=== PATIENT | female | born 1960 | race Caucasian/White ===

== ENCOUNTER 2017-07-26 17:02 | Inpatient (IN) | payer OTHER ==
[~2017-07-26] VITALS: Ht 157.5 cm; Wt 112.6 kg
--- NOTE | ~2017-07-26 | EKG ---
[address] [place] [address] ELECTROCARDIOGRAM REPORT Name: FENG SANABRIA Room #: 200-I ADM IN M.R.#: [id number] Admission: 07/26/17 Attend Phys: Joseph Leggett Discharge: Date of : 62 Report #: [id number] THIS REPORT FOR: //name// [facility] Test Date: 2017-07-28 Test Time: 07:45:59 Pat Name: FENG SANABRIA Department: Room: 200 I Gender: F Blast Furnace Tender: yeny : 1960 Requested By: Pamela Lozano Order Number: [id number] MD: Sky Bass Measurements Intervals [place] Rate: 110 P: [place]: QRS: 111 QRSD: 102 T: -56 QT: 400 QTc: 542 Interpretive Statements Atrial fibrillation Consider right ventricular hypertrophy Borderline T abnormalities, inferior leads Electronically Signed On 07-28-2017 8:31:35 DIRECTOR OF COUNSELING by Sky Bass [email or web address] <ELECTRONICALLY SIGNED> By: Sky Bass MD 07/28/17 0831 0745 0745 Sky Bass MD /SHERRI
--- NOTE | ~2017-07-26 | EKG ---
[address] [facility] [place] [address] ELECTROCARDIOGRAM REPORT Name: FENG SANABRIA Room #: 200-I ADM IN M.R.#: [id number] Admission: 07/26/17 Attend Phys: Joseph Leggett Discharge: Date of : 62 Report #: [id number] THIS REPORT FOR: //name// [facility] ED Test Date: 2017-07-26 Test Time: 22:31:36 Pat Name: FENG SANABRIA Department: Room: 200 I Gender: F Hand Rounder: JERRY : 1960 Requested By: Roderick Low Order Number: [id number] MD: Sky Bass Measurements Intervals [place] Rate: 126 P: CT: QRS: 106 QRSD: 93 T: -26 QT: 355 QTc: 515 Interpretive Statements Atrial fibrillation Right axis deviation Borderline T abnormalities, inferior leads Compared to ECG 07/26/2017 17:45:12 T-wave abnormality still present Electronically Signed On 07-27-2017 9:05:17 TIPPLE WORKER by Sky Bass [email or web address] <ELECTRONICALLY SIGNED> By: Sky Bass MD 07/27/17904 30 30 Sky Bass MD /SHERRI
--- NOTE | ~2017-07-26 | 2DMMODE ---
[facility] [address] [place] [address] 2 D/M-MODE ECHOCARDIOGRAM Name: FENG SANABRIA Room #: 200-I ADM IN M.R.#: [id number] Admission: 07/26/17 Attend Phys: Joseph Lennon Discharge: Date of : 62 Date of Service: 07/27/17 1252 Report #: [id number] THIS REPORT FOR: //name// APPROVED REPORT Study performed: 07/27/2017 11:43:48 EXAM: Comprehensive 2D, Doppler, and color-flow Echocardiogram Patient Location: Echo lab Room #: 200 Status: routine BSA: 2.10 HR: 75 bpm BP: 105/73 mmHg Rhythm: Atrial Fibrillation Other Information Study Quality: Adequate Technically limited study due to morbid obesity. Patient moved throughout exam. Did not tolerate well. Indications Afib, CHF, aortic stenosis, Short of breath. 2D Dimensions RVDd: 35.89 mm LVEF(%): 43.04 (>50%) IVSd: 12.16 (7-11mm) LVOT Diam: 19.82 (18-24mm) LVDd: 46.13 mm PWd: 11.10 (7-11mm) Ascending Ao: 35.03 (22-36mm) LVDs: 36.37 (25-40mm) Aortic Root: 25.91 mm Isidro's LVEF: 43.04 % Volumes Left Atrial Volume (Systole) Single Plane 4CH: 71.38 mL Single Plane 2CH: 66.67 mL Aortic Valve AoV Peak Anand.: 2.08 m/s AO Peak Gr.: 17.65 mmHg LVOT Max P.65 mmHg AO Mean Gr.: 11.15 mmHg AO V2 Mean: 1.60 m/s LVOT Max V: 0.95 m/s AO V2 VTI: 43.61 cm JOANIE Vmax: 1.41 cm2 [facility] [address] [place] [address] 2 D/M-MODE ECHOCARDIOGRAM Name: TITI SANABRIAASIM GUTIERREZE Room #: 200-I [facility] IN .R.#: [id number] Admission: 07/26/17 Attend Phys: oJseph Lennon Discharge: Date of : 62 Date of Service: 07/27/17 1252 Report #: [id number] Mitral Valve MV Decel. Time: 145.20 ms MV E Max Anand.: 1.32 m/s Pulmonary Valve PV Peak Anand.: 0.91 m/s PV Peak Gr.: 3.34 mmHg Tricuspid Valve TR Peak Anand.: 2.87 m/s RAP Estimate: 10.00 mmHg TR Peak Gr.: 33.67 mmHg PA Pressure: 44.00 mmHg Left Ventricle The left ventricle is normal size. Mild concentric left ventricular hypertrophy. Left ventricular systolic function is normal. LVEF is 55%. This study is not technically sufficient to allow evaluation of the LV diastolic function due to atrial fibrillation. Right Ventricle Right ventricle is dilated. Right ventricle appears mildly hypokinetic. Atria Left atrium is dilated. Right atrium is dilated. Aortic Valve Aortic valve is calcified. Trace aortic regurgitation. Mild aortic stenosis. Calculated aortic valve area is 1.4 cm2 with maximum pressure gradient of 18 mmHg and mean pressure gradient of 11 mmHg. Mitral Valve Mitral valve leaflets are mildly calcified. Mild mitral annular calcification. Moderate mitral regurgitation. Tricuspid Valve The tricuspid valve is normal in structure. Moderate to severe tricuspid regurgitation. Estimated PAP is 45mmHg. Pulmonic Valve The pulmonary valve is normal in structure. Trace pulmonic regurgitation. Great Vessels The aortic root is normal in size. IVC is dilated and collapses <50% with inspiration. [facility] [address] [place] [address] 2 D/M-MODE ECHOCARDIOGRAM Name: FENG SANABRIA Room #: 200-I [facility] IN [facility]#: [id number] Admission: 07/26/17 Attend Phys: Joseph Lennon Discharge: Date of : 62 Date of Service: 07/27/17 1252 Report #: [id number] Pericardium There is no pericardial effusion. <Conclusion> Left ventricular systolic function is normal. LVEF is 55%. Both atria are dilated. Aortic valve is calcified, mildly stenotic. Calculated aortic valve area is 1.4 cm2 with maximum pressure gradient of 18 mmHg and mean pressure gradient of 11 mmHg. Mitral valve leaflets are mildly calcified. Mild mitral annular calcification. Moderate mitral regurgitation. Moderate to severe tricuspid regurgitation. Estimated pulmonary artery pressure of 45mmHg. There is no pericardial effusion. <ELECTRONICALLY SIGNED> By: Mich Fonseca MD, [facility] 07/27/17 1252 1252 125 Mich Fonseca MD, FACC /INF
--- NOTE | ~2017-07-26 | EKG ---
[address] [address] ELECTROCARDIOGRAM REPORT Name: FENG SANABRIA Room #: 200-I ADM IN M.R.#: [id number] Admission: 07/26/17 Attend Phys: Joseph Leggett Discharge: Date of : 62 Report #: [id number] THIS REPORT FOR: //name// [facility] Test Date: 2017-07-30 Test Time: 12:32:57 Pat Name: FENG SANABRIA Department: Room: 200 I Gender: F Ice Cream Vendor: Albin QUIROZ : 1960 Requested By: Sky Bass Order Number: [id number] MD: Sky Bass Measurements Intervals [place] Rate: 96 P: ID: QRS: 87 QRSD: 92 T: -28 QT: 389 QTc: 492 Interpretive Statements Atrial fibrillation Borderline repolarization abnormality Compared to ECG 07/29/2017 10:16:17 Ventricular premature complex(es) no longer present Right-axis deviation no longer present Electronically Signed On 07-30-2017 13:19:33 CORPORATE COMMUNICATIONS SPECIALIST by Sky Bass [email or web address] <ELECTRONICALLY SIGNED> By: Sky Bass MD 07/30/17 1319 1232 1232 Sky Bass MD /EPI
--- NOTE | ~2017-07-26 | EKG ---
[address] [address] ELECTROCARDIOGRAM REPORT Name: FENG SANABRIA Room #: 170-1 ADM IN M.R.#: [id number] Admission: 07/26/17 Attend Phys: Joseph Leggett Discharge: Date of : 62 Report #: [id number] THIS REPORT FOR: //name// [facility] ED Test Date: 2017-07-26 Test Time: 17:45:12 Pat Name: FENG SANABRIA Department: Room: 170 Gender: F Assistance Coordinator: SHERWIN : 1960 Requested By: Roderick Low Order Number: [id number] MD: Sky Bass Measurements Intervals [place] Rate: 143 P: [place]: QRS: 92 QRSD: 87 T: QT: 322 QTc: 497 Interpretive Statements Atrial fibrillation Borderline right axis deviation Borderline T abnormalities, inferior leads Electronically Signed On 07-26-2017 23:13:32 BASTING PULLER by Sky Bass [email or web address] <ELECTRONICALLY SIGNED> By: Sky Bass MD 07/26/17 2313 1745 1745 MD NAYELI Martinez
--- NOTE | ~2017-07-26 | HC ---
[facility] [place] [address] CONSULTATION Name: FENG SANABRIA Room #: 200-I ADM IN M.R.#: [id number] Admission: 07/26/17 Attend Phys: Joseph Leggett Discharge: Date of : 62 Report #: [id number] THIS REPORT FOR: //name// CC: Joseph Moran The patient of Dr. Leggett. CCU room 200. HISTORY OF PRESENT ILLNESS: One of multiple admissions for this 57-year-old white female with a 1- to 2-year history of atrial fibrillation that has necessitated chemical and electrical conversion on multiple occasions. It is not clear whether the patient has ever been evaluated for thyroid disorders. She has a family history of mother who has hypothyroidism. The patient herself has been clinically euthyroid. She has noticed some fatigue and weight gain, but no other classic signs or symptoms of hyperthyroidism. Upon admission, the patient had routine thyroid function studies noting a suppressed TSH and an increased free T4. She is now on beta blockade with 50 mg of atenolol per day and is clinically euthyroid. CURRENT MEDICATIONS: Include atenolol as mentioned above. There are no other medications that affect the thyroid. The patient does have a history of IODINE CONTRAST SENSITIVITY and has not had any recent intravenous iodine. OBJECTIVE: LABORATORY DATA: From earlier on this admission, free T4 of 3.1, TSH 0.022. There is a prior TSH from 10/05 that was normal at 0.639. PHYSICAL EXAMINATION: GENERAL: Well-nourished, well-developed obese 57-year-old white female in no acute distress. VITAL SIGNS: The patient is afebrile, heart rate 78 and regular, blood pressure 130/70. SKIN: Warm and moist. EYES: There is no ophthalmopathy. NEUROLOGIC: Deep tendon reflexes are 2+ and equal bilaterally. There is no outstretched tremor on beta blockade. NECK: The thyroid itself is somewhat firm and mildly enlarged. It moves well with deglutition. There is no palpable nodularity or adenopathy present. ASSESSMENT: Hyperthyroidism, possibly Graves disease, but there is no ophthalmopathy at this time. It is not clear whether this is the cause or only an aggravating factor in [place] [address] CONSULTATION Name: FENG SANABRIA Room #: 200-I ADM IN .R.#: [id number] Admission: 07/26/17 Attend Phys: Joseph Leggett Discharge: Date of : 62 Report #: [id number] PLAN: 1. I have discussed the physiology and pathophysiology as well as treatment of hyperthyroidism with the patient including surgery, antithyroid drugs and radioiodine. The patient is interested in pursuing treatment with radioiodine. Therefore, we will obtain a 6 and 24-hour radioiodine uptake before deciding whether the patient is a suitable candidate and calculating an appropriate dose. 2. It is not apparent at this time whether atrial fibrillation will resolve with resolution of the hyperthyroidism. 3. The patient's IODINE SENSITIVITY should not be a problem given the very minute dosage of iodine in the administered radioiodine treatment. 4. The patient is aware of the potential for post-treatment hypothyroidism and also that the treatment will not be immediately effective that it can take weeks to months to work. Thank you very much for this consultation. I will continue to follow the patient with you for evaluation and treatment of hyperthyroidism. Thyroid immunoglobulin test for possible Graves disease has apparently already been ordered. <ELECTRONICALLY SIGNED> By: Celio Guevara MD 07/29/17 1058 1142 1840 Celio Guevara MD /nt
--- NOTE | ~2017-07-26 | EKG ---
[place] [address] [facility] [place] [address] ELECTROCARDIOGRAM REPORT Name: FENG SANABRIA Room #: 200-I ADM IN M.R.#: [id number] Admission: 07/26/17 Attend Phys: Joseph Leggett Discharge: Date of : 62 Report #: [id number] THIS REPORT FOR: //name// [facility] Test Date: 2017-07-29 Test Time: 10:16:17 Pat Name: FENG SANABRIA Department: Room: 200 I Gender: F Primary Care Nurse Practitioner: KAJAL : 1960 Requested By: Sky Bass Order Number: [id number] MD: Sky Bass Measurements Intervals [place] Rate: 97 P: [place]: QRS: 103 QRSD: 92 T: 20 QT: 384 QTc: 488 Interpretive Statements Atrial fibrillation Ventricular premature complex Right axis deviation Borderline low voltage, extremity leads Abnormal R-wave progression, late transition Compared to ECG 07/28/2017 07:45:59 Ventricular premature complex(es) now present Right-axis deviation now present T-wave abnormality no longer present Electronically Signed On 07-29-2017 15:54:02 NEON TECHNICIAN by Sky Bass [email or web address] <ELECTRONICALLY SIGNED> By: Sky Bass MD 07/29/17 1554 1016 1016 Sky Bass MD /EPI
[~2017-07-26 17:02] MED LIST: ATENOLOL 50MG T50 M1 PO; CARDIZEM CD240 MG PO; COMBIVENT INH; COZAAR100 MG PO; DEMADEX20 MG PO; DILTIAZEM 24HR180 M1 PO; K-DUR 20 MEQ T20 MEQ PO; MELATONIN 3 MG1 EAC1 PO; PRADAXA150 MG PO; TYLENOL325 MG PO
[2017-07-26 17:28] VITALS: BP 171/116
[2017-07-26 20:37] LABS: ABSOLUTE NEUTROPHILS 5.7 thou/uL (1.4-8.2); BASOPHILS 0.6 % (0.0-2.0); EOSINOPHILS 1.4 % (0.0-3.0); HEMATOCRIT 35.5 % (37.0-47.0); HEMOGLOBIN 11.6 gm/dL (12.0-15.0); LYMPHOCYTES 22.9 % (24.0-44.0); MCH 26.8 pg (26.0-34.0); MCHC 32.7 g/dL (28.0-37.0); MCV 81.9 fL (80.0-100.0); MONOCYTES 7.4 % (1.0-8.0); PLATELET COUNT 235 thou/uL (150-400); POLYS 67.7 % (36.0-66.0); RBC 4.34 mil/uL (4.20-5.00); RDW 16.5 % (10.5-14.5); WBC 8.4 thou/uL (4.0-11.0)
[2017-07-26 20:46] LABS: ANION GAP 7 mmol/L (7-16); BUN 24 mg/dL (7-18); CALCIUM 9.7 mg/dL (8.5-10.1); CHLORIDE 104 mmol/L (98-107); CO2 31 mmol/L (21-32); CREATININE 1.2 mg/dL (0.6-1.0); GLUCOSE 146 mg/dL (74-106); POTASSIUM 3.4 mmol/L (3.5-5.1); SODIUM 142 mmol/L (136-145)
[2017-07-26 20:55] LABS: ALBUMIN 3.4 g/dL (3.4-5.0); MAGNESIUM 1.9 mg/dL (1.8-2.4); SGOT 22 U/L (15-37); SGPT 26 U/L (30-65); TOTAL PROTEIN 7.8 g/dL (6.4-8.2); TROPONIN-I < 0.04 ng/mL (<0.06)
[2017-07-26] MEDS ORDERED: CARDIZEM CD240 MG PO (23:11)
[2017-07-26] MEDS ORDERED: ASPIRIN325 PO (23:12)
[2017-07-26] MEDS ORDERED: ASPIRIN600 MG RECTAL (23:12)
[2017-07-26 23:17] VITALS: BP 125/104
[2017-07-26 23:42] VITALS: BP 136/89
[2017-07-27] MEDS ORDERED: ASPIRIN325 PO (01:54)
[2017-07-27] MEDS ORDERED: DEMADEX20 MG PO (01:55)
[2017-07-27 02:53] LABS: HEMATOCRIT 32.4 % (37.0-47.0); HEMOGLOBIN 10.3 gm/dL (12.0-15.0); MCH 26.5 pg (26.0-34.0); MCHC 31.9 g/dL (28.0-37.0); MCV 83.2 fL (80.0-100.0); RBC 3.89 mil/uL (4.20-5.00); RDW 16.8 % (10.5-14.5); WBC 7.3 thou/uL (4.0-11.0)
[2017-07-27 03:12] LABS: ANION GAP 9 mmol/L (7-16); BUN 24 mg/dL (7-18); CALCIUM 8.9 mg/dL (8.5-10.1); CHLORIDE 101 mmol/L (98-107); CO2 29 mmol/L (21-32); CREATININE 1.2 mg/dL (0.6-1.0); GLUCOSE 237 mg/dL (74-106); POTASSIUM 3.4 mmol/L (3.5-5.1); SODIUM 139 mmol/L (136-145); TROPONIN-I < 0.04 ng/mL (<0.06)
[2017-07-27 04:07] VITALS: BP 125/86
[2017-07-27 08:00] VITALS: BP 134/92
[2017-07-27 11:32] VITALS: BP 95/69
[2017-07-27 14:09] LABS: THYROID PEROXIDASE AB 16 IU/mL (0-34)
[2017-07-27 14:54] VITALS: BP 130/79
[2017-07-27 15:40] VITALS: BP 111/80
[2017-07-27 19:14] VITALS: BP 101/81
[2017-07-28 00:03] VITALS: BP 104/74
[2017-07-28 03:08] VITALS: BP 128/83
[2017-07-28 08:00] VITALS: BP 114/85
[2017-07-28 09:10] LABS: HEMATOCRIT 33.5 % (37.0-47.0); HEMOGLOBIN 10.8 gm/dL (12.0-15.0); MCH 26.8 pg (26.0-34.0); MCHC 32.2 g/dL (28.0-37.0); MCV 83.2 fL (80.0-100.0); RBC 4.03 mil/uL (4.20-5.00); WBC 7.8 thou/uL (4.0-11.0)
[2017-07-28 09:20] LABS: CALCIUM 8.8 mg/dL (8.5-10.1); CREATININE 1.5 mg/dL (0.6-1.0); MAGNESIUM 1.8 mg/dL (1.8-2.4); POTASSIUM 3.7 mmol/L (3.5-5.1)
[2017-07-28 12:00] VITALS: BP 127/93
[2017-07-28 16:48] VITALS: BP 137/114
[2017-07-28 19:19] VITALS: BP 125/86
[2017-07-28 22:10] LABS: GLYCOHEMOGLOBIN (HGB A1C) 8.1 % (4.8-5.6)
[2017-07-29 04:10] VITALS: BP 118/65
[2017-07-29 07:00] VITALS: BP 119/62
[2017-07-29] MEDS ORDERED: ADULT LOW DOSE81 MG PO (08:07)
[2017-07-29] MEDS ORDERED: PRADAXA150 MG PO (08:07)
[2017-07-29 11:15] VITALS: BP 107/72
[2017-07-29 12:43] LABS: ABSOLUTE NEUTROPHILS 6.9 thou/uL (1.4-8.2); BASOPHILS 0.5 % (0.0-2.0); HEMATOCRIT 37.2 % (37.0-47.0); HEMOGLOBIN 11.7 gm/dL (12.0-15.0); LYMPHOCYTES 17.6 % (24.0-44.0); MCH 26.8 pg (26.0-34.0); MCHC 31.3 g/dL (28.0-37.0); MCV 85.4 fL (80.0-100.0); MONOCYTES 8.5 % (1.0-8.0); PLATELET COUNT 238 thou/uL (150-400); POLYS 72.4 % (36.0-66.0); RBC 4.36 mil/uL (4.20-5.00); RDW 17.4 % (10.5-14.5); WBC 9.5 thou/uL (4.0-11.0)
[2017-07-29 12:56] LABS: CALCIUM 9.1 mg/dL (8.5-10.1); CREATININE 1.1 mg/dL (0.6-1.0); POTASSIUM 4.9 mmol/L (3.5-5.1)
[2017-07-29 15:20] VITALS: BP 112/76
[2017-07-29 19:39] VITALS: BP 102/62
[2017-07-30 03:43] VITALS: BP 121/79
[2017-07-30 05:55] LABS: CALCIUM 9.1 mg/dL (8.5-10.1); CREATININE 1.1 mg/dL (0.6-1.0)
[2017-07-30 06:02] LABS: POTASSIUM 3.5 mmol/L (3.5-5.1)
[2017-07-30 08:00] VITALS: BP 115/77
[2017-07-30] MEDS ORDERED: ATENOLOL 100MG100 MG PO (09:06)
[2017-07-30 11:15] VITALS: BP 104/68
[2017-07-30 19:09] VITALS: BP 147/67
[2017-07-31 06:21] VITALS: BP 148/98
[2017-07-31 08:34] VITALS: BP 141/87
[2017-07-31 09:05] VITALS: BP 141/87
[2017-08-01 15:09] LABS: THYROID STIMULATING IG 89 % (0-139)
[2017-11-22] MEDS ORDERED: METHIMAZOLE5 MG PO (17:06)
[2017-11-22] MEDS ORDERED: DEMADEX20 MG PO (17:06)
[2017-11-22] MEDS ORDERED: DILTIAZEM 24HR180 M1 PO (17:13)
[2017-11-22] MEDS ORDERED: AUGMENTIN 875-1 EACH PO (17:13)
[2018-03-07] MEDS ORDERED: XARELTO20 MG PO (05:22)
[2018-04-07] MEDS ORDERED: CARDIZEM CD120 MG PO (09:18)
[2018-04-07] MEDS ORDERED: ATENOLOL 50MG T50 M1 PO (09:19)
[2018-04-10] MEDS ORDERED: NORCO 7.5-3251 EACH PO (08:10)
[2018-04-10] MEDS ORDERED: SENNA-S TABLET1 EACH PO (08:10)
[2018-04-10] MEDS ORDERED: CARDIZEM CD120 MG PO (10:50)
[2018-04-10] MEDS ORDERED: DEMADEX20 MG PO (10:53)
[2018-04-10] MEDS ORDERED: SENNA-TIME S T1 EACH PO (10:53)
[2018-04-10] MEDS ORDERED: HYDROCODONE-AP1 EAC6 PO (10:54)
[2018-04-10] MEDS ORDERED: DILTIAZEM HCL90 MG PO (15:47)
[2018-04-10] MEDS ORDERED: PAXIL10 MG (15:48)
[2018-05-03] MEDS ORDERED: NEURONTIN 300300 M1 PO (12:36)
[2018-05-03] MEDS ORDERED: VALACYCLOVIR1000 MG PO (12:37)
[2018-05-03] MEDS ORDERED: VENTOLIN HFA 1818 GM INH (12:38)
[2018-05-03] MEDS ORDERED: ATENOLOL 50MG T50 M1 PO (13:16)
[2018-05-03] MEDS ORDERED: CARDIZEM CD240 MG PO (13:18)
== END 2017-07-31 09:25 | disposition home or self-care (01) | DRG 291 ==
LOC: ER 17:02 → EROBS 21:25 → 2N 21:25
PROVIDERS: Emergency Medicine; Internal Medicine; Internal Medicine Cardiovascular Disease; Nurse Practitioner Family
DX: I13.0 Hypertensive heart and chronic kidney disease with heart failure and stage 1 through stage 4 chronic kidney disease, or unspecified chronic kidney disease (principal); I50.33 Acute on chronic diastolic (congestive) heart failure; J96.21 Acute and chronic respiratory failure with hypoxia; Z68.42 Body mass index [BMI] 45.0-49.9, adult; N18.9 Chronic kidney disease, unspecified; E05.90 Thyrotoxicosis, unspecified without thyrotoxic crisis or storm; I50.9 Heart failure, unspecified; I48.0 Paroxysmal atrial fibrillation; E87.6 Hypokalemia; I35.0 Nonrheumatic aortic (valve) stenosis; E66.9 Obesity, unspecified; Z91.041 Radiographic dye allergy status; Z87.01 Personal history of pneumonia (recurrent); Z82.49 Family history of ischemic heart disease and other diseases of the circulatory system; Z91.14 Patient's other noncompliance with medication regimen
CPT/HCPCS: 10081

== ENCOUNTER 2018-01-31 20:07 | Inpatient (IN) | payer OTHER ==
[~2018-01-31] VITALS: Ht 157.5 cm; Wt 90.6 kg
--- NOTE | ~2018-01-31 | EKG ---
[place] [address] [facility] [place] [address] ELECTROCARDIOGRAM REPORT Name: FENG SANABRIA Room #: 243-P ADM IN M.R.#: [id number] Admission: 02/01/18 Attend Phys: Arian Martinez MD Discharge: Date of : 62 Report #: [id number] THIS REPORT FOR: //name// [facility] ED Test Date: 2018-01-31 Test Time: 20:30:04 Pat Name: FENG SANABRIA Department: Room: Gender: F Lithographic Plate Maker: HELGA : 1960 Requested By: Mary Ann Johnson Order Number: [id number] MD: Mich Fonseca Measurements Intervals [place] Rate: 63 P: [place]: QRS: 130 QRSD: 92 T: 171 QT: 543 QTc: 557 Interpretive Statements Limb lead reversal, recommend repeat tracing Atrial fibrillation Ventricular premature complex Nonspecific T abnrm, anterolateral leads Prolonged QT interval Compared to ECG 11/19/2017 17:28:33 Ventricular premature complex(es) now present QT interval has lengthened Electronically Signed On 02-01-2018 8:43:58 CDT by Mich Fonseca [email or web address] <ELECTRONICALLY SIGNED> By: Mich Fonseca MD, [facility] 02/01/18 0843 29 29 Mich Fonseca MD, [facility] /EPI
--- NOTE | ~2018-01-31 | HC ---
[facility] [place] [address] CONSULTATION Name: FENG SANABRIA Room #: 243-P ADM IN M.R.#: [id number] Admission: 02/01/18 Attend Phys: Arian Martinez MD Discharge: Date of : 62 Report #: [id number] THIS REPORT FOR: //name// CC: Jace Martinez DATE OF SERVICE: 02/04/2018 REQUESTING PHYSICIAN: Dr. Martinez. HISTORY OF PRESENT ILLNESS: The patient is a 57-year-old woman with multiple medical problems including hypertension, AFib, congestive heart failure, chronic kidney disease, history of previous alcohol abuse, who was admitted to the hospital with progressive shortness of breath, atrial fibrillation with rapid ventricular response. She was sent to Emergency Room from Cardiology office with the above-mentioned symptoms. In the Emergency Room, she developed hypotension, was given IV fluids, placed on Levophed, and was admitted to the ICU for sepsis. She was doing okay for a couple of days, but yesterday she got worse with worsening hypotension, hypothermia. She is intubated now. She has been having worsening coagulopathy, I am consulted for coagulopathy. She is intubated and sedated, unable to obtain history. History was obtained from the nurse. PAST MEDICAL HISTORY: Significant for above-mentioned symptoms. She does not have a history of cirrhosis, although CT scan done in the hospital shows liver changes consistent with cirrhosis and pancreatitis. She does not have melena, large currently. SOCIAL HISTORY: Currently nonsmoker. No HIV risk factors. No current excessive alcohol intake. 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 REVIEW OF SYSTEMS: Unable to obtain. PHYSICAL EXAMINATION: GENERAL: Reveals sedated woman, not responsive, intubated. VITAL SIGNS: Blood pressure 88/56, heart rate 123, temperature 32.9 Celsius and respirations 18. HEENT: Intubated. There is no supraclavicular lymphadenopathy. HEART: Normal S1, S2. LUNGS: Coarse. ABDOMEN: Soft. EXTREMITIES: Lower extremities, no edema. SKIN: Does not reveal rash. LABORATORY DATA: White count 4.2, hemoglobin 8.6, platelets 134. Sodium 139, [address] [address] CONSULTATION Name: FENG SANABRIA Room #: [address] [place] [address] IN M.R.#: [id number] Admission: 02/01/18 Attend Phys: Arian Martinez MD Discharge: Date of : 62 Report #: [id number] potassium 2.9, creatinine 2.6. AST 1658, total bilirubin 3.2, ALT 1566. Total protein 6.2, albumin 2.7. PT 24.3, INR 2.4, PTT 31.2. CT of abdomen and pelvis shows unexplained central edema throughout the mesentery, small amount of edema surrounding the pancreas, could be reflecting pancreatitis, liver is prominent with irregular surface suggesting cirrhosis. There is an increased density and prominence of the left ovary measuring 2.6/3.6 cm. ASSESSMENT AND PLAN: 1. Coagulopathy secondary to low synthetic function secondary to liver cirrhosis/acute liver injury. The patient has been receiving FFPs without significant response. Response to FFP is very short-acting, it should be given if there is any acute bleeding or risk of bleeding. I am planning to order vitamin K 5 mg subcutaneous daily for 3 days. We will check PT/INR in 12 hours after injection of vitamin K to assess response. 2. Continue to monitor DIC panel, we will give cryoprecipitate if fibrinogen is less than 20 DIC, probably risk of DIC is a possible contributing factor as well. 3. Adnexal mass. I am planning to order a CA-125. When the patient is discharged from the hospital, she will need outpatient evaluation with intravaginal/pelvic ultrasound. 4. Thrombocytopenia secondary to increased consumption from sepsis and probably portal hypertension, although there is no comment regarding spleen size on the CT scan. If thrombocytopenia gets worse, I will order abdominal ultrasound. Thank you very much for allowing me to participate in the care of this patient. <ELECTRONICALLY SIGNED> By: Nelson Guevara MD 02/07/18 1746 1144 1304 Nelson Guevara MD /nt
--- NOTE | ~2018-01-31 | HC ---
[facility] [place] [address] CONSULTATION Name: FENG SANABRIA Room #: 243-P ADM IN M.R.#: [id number] Admission: 02/01/18 Attend Phys: Arian Martinez MD Discharge: Date of : 62 Report #: [id number] THIS REPORT FOR: //name// CC: Jace Martinez DATE OF SERVICE: 02/01/2018 REFERRAL PHYSICIAN: Dr. Anderson. REASON FOR REFERRAL: Sepsis, pleural effusion. HISTORY OF PRESENT ILLNESS: The patient is a 57-year-old white female who was admitted with dizziness and tachycardia. She was felt to be septic. CT chest showed mild bilateral pleural effusion. A Pulmonary and Critical Care consultation was requested. The patient was in her usual state of health until 1 hour prior to presentation, she started to develop nausea, vomiting, burning sensation in the chest radiating to the abdomen. She was seen by her lay ups assembler, Dr. Hebert. He had recommended ER visit. Presently, she feels somewhat weak. Denies any chest pain. Notes mild dyspnea. Otherwise, denies any recent febrile illness, hematemesis, hematochezia or melena. PAST MEDICAL HISTORY: Notable for hypertension; atrial fibrillation; heart failure; chronic kidney disease; sleep apnea, on O2 only; [id number]-kx-aqftsmch aortic stenosis, echocardiogram performed 07/2017 showed ejection fraction 55%. History of respiratory failure in 05/2016. Sleep apnea, for which she uses 2 liters of O2 at bedtime. History of medical noncompliance, chronic diastolic heart failure. PAST SURGICAL HISTORY: Remarkable for tubal ligation. ALLERGIES: CONTRAST DYE, REACTION NOT SPECIFIED. HOME MEDICATIONS: Reviewed. This include aspirin, methimazole, torsemide, diltiazem, Augmentin. FAMILY HISTORY: Remarkable for heart disease in mother. SOCIAL HISTORY: She is a lifetime nonsmoker. She drinks occasionally. She lives independently alone. REVIEW OF SYSTEMS: As mentioned above. Otherwise, 10-point system review [facility] [address] [place] [address] CONSULTATION Name: FENG SANABRIA Room #: [address] [place] [address] IN .R.#: [id number] Admission: 02/01/18 Attend Phys: Arian Martinez MD Discharge: Date of : 62 Report #: [id number]. PHYSICAL EXAMINATION: GENERAL: She is awake, appears mildly distressed, somewhat weak and mildly somnolent. VITAL SIGNS: Temperature is 97.7 degrees Fahrenheit, pulse is 85, respiratory rate is 25, blood pressure is currently 85/49 mmHg. Lowest blood pressure was recorded at 78 mmHg systolic, saturation 98%. HEENT: Normocephalic, atraumatic. NECK: Supple without any lymphadenopathy or thyromegaly. CHEST: Breath sounds are decreased in the bases. No obvious wheezes or rales. CARDIOVASCULAR: No murmurs or gallop, irregular. Pulses are decreased at 1/4+ bilaterally. There is no JVD. BREASTS: Deferred. ABDOMEN: Soft, nontender, moderately obese. GENITOURINARY: Deferred. RECTAL: Deferred. EXTREMITIES: Trace bilateral edema. LABORATORY DATA: CT chest shows no obvious infiltrates, some mild bilateral pleural effusion. Bibasilar atelectasis noted. Mild central mediastinal adenopathy noted. CT abdomen and pelvis revealed central edema surrounding the pancreas, possible pancreatitis, liver shows irregular surface suggestive of cirrhosis. Lipase was 258, which is normal. BNP is 9900. Lactic acid is 4.3. TSH is 0.2. EKG shows atrial fibrillation, prolonged QT interval, nonspecific T-wave abnormalities, QT interval is prolonged. Otherwise, no acute ischemic changes. Sodium 137, potassium 4.2, chloride 98, CO2 is 25, BUN is 42, creatinine is 3.0. Liver function enzymes are mildly elevated. Platelets are normal. Albumin 3.5. Arterial blood gas revealed pH 7.42, pCO2 is 37, pO2 59 on 2 [address] of [address]. [address] chest again shows small bilateral pleural effusion, mild bibasilar atelectasis, otherwise no consolidation or air bronchogram suggestive of pneumonia. IMPRESSION: 1. Acute hypoxic respiratory failure in this 57-year-old white female with atrial fibrillation, chronic diastolic heart failure, moderate aortic stenosis, hypertension, sleep apnea with history medical noncompliance. She presents with progressive dyspnea, tachycardia, nausea and vomiting. Imaging study shows small bilateral pleural effusion, ascites. Laboratory data shows acute kidney injury. Cause of the patient's hypoxia is likely related to underlying acute on chronic heart failure. Pneumonia is felt to be less likely based on CT chest findings. She appears to have other comorbid conditions including possible liver disease. She appears to have acute kidney injury. 2. Atrial fibrillation with recent tachycardia, now bradycardic as per Cardiology. She has been on anticoagulation. 3. Acute kidney injury. [facility] [address] [place] [address] CONSULTATION Name: FENG SANABRIA Room #: 243-P ADM IN .Marvin.#: [id number] Admission: 02/01/18 Attend Phys: Arian Martinez MD Discharge: Date of : 62 Report #: [id number] 4. Mild hypotension, may be related to sepsis. Doubt she is intravascularly volume depleted. May be medication induced. 5. Questionable sepsis. No obvious signs of pneumonia at this time. We will consider other possible sources that would include urinary tract, GI tract. 6. Possible liver disease, (?) cirrhosis. GI has been consulted. 7. Obstructive sleep apnea, on 2 liters of O2, not on CPAP. 8. Medical noncompliance. 9. Hypertension. 10. History of thyroid disorder. Note the TSH is 0.2. RECOMMENDATION: We will continue O2 to keep saturation 90%. We will defer volume management to Infectious Disease along with vasopressors. We will followup chest x-ray. We will discuss optimal treatment for sleep apnea with the patient when she is more stable. Untreated sleep apnea may be contributing to underlying atrial fibrillation, perhaps resulting in heart failure. DVT and GI prophylaxis will be addressed. Thank you for this consultation. <ELECTRONICALLY SIGNED> By: Bob Garcia MD 02/02/18 1424 [id number] [id number] Bob Garcia MD /nt
--- NOTE | ~2018-01-31 | 2DMMODE ---
[facility] [address] [place] [address] 2 D/M-MODE ECHOCARDIOGRAM Name: FENG SANABRIA PHU Room #: 243-P ADM IN M.R.#: [id number] Admission: 02/01/18 Attend Phys: Marta Khan Discharge: Date of : 62 Date of Service: 02/03/18 0816 Report #: [id number] THIS REPORT FOR: //name// APPROVED REPORT Study performed: 02/02/2018 09:55:10 EXAM: Comprehensive 2D, Doppler, and color-flow Echocardiogram Patient Location: Bedside Room #: 243 Status: on-call BSA: 1.86 HR: 70 bpm BP: 79/57 mmHg Rhythm: NSR Other Information Study Quality: Adequate Indications Chest Pressure Hypotension Congestive Heart Failure Atrial Fibrillation Septic Shock Respiratory failure. 2D Dimensions LVEF(%): 41.22 (>50%) IVSd: 12.29 (7-11mm) LVOT Diam: 17.00 (18-24mm) LVDd: 46.75 mm PWd: 12.14 (7-11mm) Ascending Ao: 29.34 (22-36mm) LVDs: 37.34 (25-40mm) Aortic Root: 22.79 mm LV Single Plane 4CH: 34.79 % LV Single Plane 2CH: 32.40 % Isidro's LVEF: 33.60 % Biplane EF: 32.5 % Volumes Left Atrial Volume (Systole) Single Plane 4CH: 50.17 mL Single Plane 2CH: 42.49 mL LA ESV Index: 29.00 mL/m2 Aortic Valve AoV Peak Anand.: 1.98 m/s [facility] [address] [place] [address] 2 D/M-MODE ECHOCARDIOGRAM Name: ELLYTITIFENG PHU Room #: [address] [place] [address] [place] [facility].#: [id number] Admission: 02/01/18 Attend Phys: Marta Khan Discharge: Date of : 62 Date of Service: 02/03/18 0816 Report #: [id number] Peak Gr.: 15.64 mmHg LVOT Max P.26 mmHg LVOT Max V: 1.03 m/s JOANIE Vmax: 1.23 cm2 Mitral Valve E/A Ratio: 1.6 MV Decel. Time: 175.48 ms MV E Max Anand.: 1.06 m/s MV A Anand.: 0.66 m/s MV PHT: 50.89 ms IVRT: 92.27 ms TDI E/Lateral E': 17.67 E/Medial E': 21.20 Medial E' Anand.: 0.05 m/s Lateral E' Anand.: 0.06 m/s Pulmonary Valve PV Peak Anand.: 0.76 m/s PV Peak Gr.: 2.33 mmHg Tricuspid Valve TR Peak Anand.: 2.37 m/s RAP Estimate: 10.00 mmHg TR Peak Gr.: 22.53 mmHg PA Pressure: 33.00 mmHg Left Ventricle Left ventricle is at the upper limits of normal. There is normal LV segmental wall motion. Mild concentric left ventricular hypertrophy. Left ventricular systolic function is moderate to severely decreased. LVEF is 35%. Grade II - pseudonormal filling dynamics. Right Ventricle Right ventricle is dilated. The right ventricular systolic function is normal. Atria The left atrium is mildly dilated. Right atrium is dilated. Aortic Valve The aortic valve is not well visualized. The aortic valve is sclerotic. No aortic regurgitation is present. Unable to rule out aortic valvular stenosis. Mitral Valve There is mitral annular calcification. Moderate mitral regurgitation. No evidence of mitral valve stenosis. [facility] [address] [place] [address] 2 D/M-MODE ECHOCARDIOGRAM Name: FENG SANABRIA Room #: 243-P [facility] IN [facility].#: [id number] Admission: 02/01/18 Attend Phys: Marta Khan Discharge: Date of : 62 Date of Service: 02/03/18 0816 Report #: [id number] Tricuspid Valve The tricuspid valve is normal in structure. Moderate tricuspid regurgitation. Pulmonary artery pressure is 33 mmHg. Pulmonic Valve The pulmonary valve is normal in structure. Trace pulmonic regurgitation. Great Vessels The aortic root is normal in size. IVC is dilated and collapses <50% with inspiration. Pericardium There is no pericardial effusion. <Conclusion> Left ventricle is at the upper limits of normal. Mild concentric left ventricular hypertrophy. Left ventricular systolic function is moderate to severely decreased. Grade II - pseudonormal filling dynamics. Right ventricle is dilated. The left atrium is mildly dilated. Right atrium is dilated. The aortic valve is not well visualized. The aortic valve is sclerotic. Unable to rule out aortic valvular stenosis. Moderate mitral regurgitation. Moderate tricuspid regurgitation. Pulmonary artery pressure is 33 mmHg. There is no pericardial effusion. <ELECTRONICALLY SIGNED> By: Von Escobar MD 02/03/18815 5 5 Von Escobar MD /INF
--- NOTE | ~2018-01-31 | HC ---
[facility] [place] [address] CONSULTATION Name: FENG SANABRIA Room #: 243-P ADM IN M.R.#: [id number] Admission: 02/01/18 Attend Phys: Arian Martinez MD Discharge: Date of : 62 Report #: [id number] THIS REPORT FOR: //name// CC: Jace Martinez DATE OF SERVICE: 02/07/2018 SUBJECTIVE: The patient is still intubated, unable to give history. According to notes, she is getting better. OBJECTIVE: VITAL SIGNS: Blood pressure 120/89, temperature 98.2, heart rate 88. HEART: Normal S1, S2. LUNGS: Clear. EXTREMITIES: Edema in upper and lower extremities +1. ABDOMEN: Soft. LABORATORY DATA: Protime PT 13.9, INR 1.4. White count 5.2, hemoglobin 9.5, platelets 129. ASSESSMENT AND PLAN: Coagulopathy recommend to continue vitamin K subcutaneously while the patient is n.p.o. Coagulopathy secondary to liver insufficiency secondary to previous alcohol intake and vitamin K deficiency. By: 1745 05 Nelson Guevara MD /nt
--- NOTE | ~2018-01-31 | HC ---
[facility] [place] [address] CONSULTATION Name: FENG SANABRIA Room #: 243-P ADM IN M.R.#: [id number] Admission: 02/01/18 Attend Phys: Arian Martinez MD Discharge: Date of : 62 Report #: [id number] THIS REPORT FOR: //name// CC: Jace Martinez DATE OF SERVICE: 02/01/2018 REASON FOR CONSULTATION: I was asked to evaluate concerning suspected septic shock. HISTORY OF PRESENT ILLNESS: The patient is a 57-year-old with underlying history of hypertension, atrial fibrillation, congestive heart failure, chronic kidney disease, who has noticed a 2-week history of progressive shortness of breath. Four days ago, she was markedly dyspneic with dyspnea on exertion. Some PND and orthopnea. Mild peripheral edema, which was not too uncommon for her. The shortness of breath; however, has dramatically increased. She has noted some abdominal distention. She has had no change in her diet. Denies any fever, chills or sweats. She has had intermittent bouts of constipation. She has also had intermittent bouts of nausea. Yesterday due to her profound shortness of breath, she was seen in Cardiology office, Dr. Hebert, who found the patient to have atrial fibrillation with rapid ventricular response. She was given increased dose of her beta henny. When she returned home, she developed persistent nausea and vomiting, associated with abdominal pain in the mid to lower abdomen. The nausea, did not improve and she was therefore recommended to go to the Emergency Room, where she was found to be hypotensive. She was given some IV fluids and placed on Levophed. She has had poor urine output. Nephrology has seen her and has recommended adjustment in her fluid management. She continues to have abdominal discomfort. Her nausea has improved. She reports her abdominal pain is in the lower abdomen, does not change with bowel movements. It does not radiate to her back or down into her pelvis or legs. No change with micturition. She has not taken any medications for it specifically. She has had some narcotics for pain since admission. This abdominal discomfort started yesterday. She does not think it has gotten any worse over the last 8 hours or so. ALLERGIES: None known. MEDICATIONS: As noted on her SEP, now including vancomycin, Zosyn, Levaquin, Pepcid, enoxaparin. Other medications included methimazole, torsemide, aspirin, diltiazem. PAST MEDICAL HISTORY: Atrial fibrillation, hypertension, aortic stenosis, congestive heart failure, chronic kidney disease, obstructive sleep apnea, thyroid disease. [address] [address] CONSULTATION Name: FENG SANABRIA Room #: 243-P ADM IN M.R.#: [id number] Admission: 02/01/18 Attend Phys: Arian Martinez MD Discharge: Date of : 62 Report #: [id number] FAMILY HISTORY: Coronary artery disease. SOCIAL HISTORY: Nonsmoker, does have report of alcohol intake, but not to a great degree. No HIV risk factors. 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 REVIEW OF SYSTEMS: GENERAL: Denies any skin abnormalities including rash or decubiti. She has had no lymphadenopathy. Denies any headache, photophobia, unilateral weakness, seizures. Denies any chest pain, although she has had some cough. There has been no sputum production. CARDIAC: As noted above. GASTROINTESTINAL: As noted above. GENITOURINARY: As noted above with no evidence of darkening tea-colored urine, dysuria or odorous urine. No hematuria. No vaginal discharge. MUSCULOSKELETAL: Without increased arthritis. No back pain or flank pain. PSYCHIATRIC: Denies any psychiatric illnesses such as depression or anxiety. ALLERGIES: She does have seasonal allergies. PHYSICAL EXAMINATION: VITAL SIGNS: Pulse was 85, blood pressure 85/49 on low dose Levophed. Respiratory rate was 25, temperature 94. She is on 4 liters of oxygen per nasal cannula. GENERAL: She was a bit lethargic, but was able to give a reasonable history. SKIN: Remarkable for some venous stasis dermatitis changes to her feet. LYMPH: Unremarkable. APPEARANCE: She was moderately obese. HEENT: Eyes unremarkable with no icterus or evidence of conjunctival injection. MOUTH: Unremarkable. NECK: Supple. She had no adenopathy. LUNGS: Decreased breath sounds in the bases bilaterally. Few crackles heard in the mid posterior chest. No consolidation, no rub. HEART: Irregular; no appreciable murmur, gallop or rub. ABDOMEN: Soft with positive bowel sounds. She was tender in the lower abdomen, mostly in the left lower quadrant. There was no guarding or rebound. Her abdominal pannus was moderate. No hepatosplenomegaly identified. No CVA tenderness. GENITOURINARY: External genitalia unremarkable with indwelling Morgan catheter. EXTREMITIES: 1+ peripheral edema in the lower extremities, peripheral IV unremarkable. NEUROLOGIC: Nonfocal. She was a bit lethargic, but her mood appeared normal. LABORATORY STUDIES: Sodium 136, potassium 3.7, bicarbonate of 28, creatinine 3, AST 45, ALT 37, alkaline phosphatase 102, bilirubin 1.9. Hemoglobin 13.1; platelet count 334,000; white count 8.8 with 54% segs; 31% lymphs. BNP was 9954. Lipase 258. Her lactate was 4.7, on 2 liters of oxygen, pO2 of 59, pCO2 [facility] [address] [place] [address] CONSULTATION Name: FENG SANABRIA Room #: 243-P ADM IN M.R.#: [id number] Admission: 02/01/18 Attend Phys: Arian Martinez MD Discharge: Date of : 62 Report #: [id number], pH 7.42. Urinalysis had positive bilirubin and protein. Her procalcitonin level was undetectable. Blood cultures are pending. Chest x-ray showed basilar atelectasis and effusion. CT scan of the chest showed bilateral effusions, right greater than left with associated atelectasis and central mediastinal adenopathy of mild degree. She did have evidence of ascites in the upper abdomen. CT scan of the abdomen and pelvis did show evidence of cirrhosis. She had ascites with question of underlying pancreatitis. There was some adenitis and left increased adnexal size. IMPRESSION: A 57-year-old with underlying atrial fibrillation, chronic kidney disease, hypertension, and history of congestive heart failure, now presents with bilateral pleural effusions and shortness of breath, associated with hypotension and shock, now requiring Levophed drip. She has uldcq-ti-koxqoin kidney injury and now is anuric. She has a lactic acidosis, which is compensated. Initially atrial fibrillation with rapid ventricular response that become bradycardic and now is stabilizing. She does have, what looks like, cirrhosis, with some ascites. I would question whether we are dealing with spontaneous bacterial peritonitis although she did not have much abdominal pain at the beginning. CT scan did not show any evidence of diverticular disease or colitis, does have cholelithiasis. The specific cause of sepsis, I would entertain possible spontaneous bacterial peritonitis or possibly cholecystitis, although no having much pain. Otherwise, dealing with multisystem failure including congestive heart failure, cirrhosis and acute renal failure. I suspect this is driving her lactic acidosis. RECOMMENDATION: We will obtain blood, urine cultures. Continue broad-antibiotic coverage. Continue full ICU support. Central venous access will be placed. Nephrology is going to manage her acute kidney injury. Would image her abdomen further with ultrasound. If there is enough fluid, I would recommend paracentesis. General Surgery is to evaluate. They have seen her before regarding her gallbladder. It is possible that we are dealing with acute cholecystitis, although her liver function tests other than her bilirubin, were not that high. I am suspecting the bilirubin is more likely related to her chronic liver disease. We will continue with broad-antibiotic coverage and adjust according to her culture results. I do not think we need Levaquin at this time and we will continue with vancomycin and Zosyn. <ELECTRONICALLY SIGNED> By: Roderick Fletcher MD 02/04/18 0830 1112 1422 Roderick Fletcher MD /nt
--- NOTE | ~2018-01-31 | HC ---
[facility] [place] [address] CONSULTATION Name: FENG SANABRIA Room #: [facility]-P ADM IN M.R.#: [id number] Admission: 02/01/18 Attend Phys: Arian Martinez MD Discharge: Date of : 62 Report #: [id number] THIS REPORT FOR: //name// CC: Jace Martinez REASON FOR CONSULTATION: Acute kidney injury. REASON FOR PRESENTATION: Shortness of breath and dizziness. HISTORY OF PRESENT ILLNESS: A 57-year-old with past medical history of hypertension, AFib, chronic kidney disease with a baseline creatinine of around 1.4. 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 Hebert, yesterday, complaining of rapid heartbeat. She was found to have AFib and was prescribed some medication until her heart settles down. After she went home, she started to have somewhat dizzy and lightheaded. She became short of breath. She decided to present to the Emergency Room for further evaluation and management. She also has persistent nausea and vomiting associated with abdominal pain. She vomited 4 or 5 times. She is known to have irritable bowel syndrome; however, the characteristic of the pain that she had yesterday were completely different. No chest pain. When she presented to the Emergency Room, she was hypotensive, in AFib with a heart rate running in the 40s, hypoxemic. She was managed accordingly with intravenous fluid and was admitted to the Intensive Care Unit for further evaluation and management. Initial laboratory values were consistent with an increased lactic acid and acute kidney injury with a creatinine of 3.0, decreased urine output in the last 24 hours for which I am being consulted to manage. PAST MEDICAL HISTORY: 1. AFib. 2. Hypertension. 3. Chronic kidney disease. 4. Obstructive sleep apnea. 5. Thyroid issues. ALLERGIES: CONTRAST. REVIEW OF SYSTEMS: GENERAL: No fever or chills, but significant for weakness, dizziness, lightheadedness. CARDIOVASCULAR: As per the history of present illness. PULMONARY: No cough or hemoptysis. GASTROINTESTINAL: Persistent nausea and vomiting. GENITOURINARY: No frequency, no urgency. SKIN: No rash or ulcerations. NEUROLOGICAL: As per the history of present illness. [address] [address] CONSULTATION Name: FENG SANABRAI Room #: [address] [place] [address] IN M.R.#: [id number] Admission: 02/01/18 Attend Phys: Arian Martinez MD Discharge: Date of : 62 Report #: [id number] MEDICATIONS: 1. Diltiazem: 2. Aspirin. 3. Torsemide. 4. Methimazole. SOCIAL HISTORY: She works for [employer]. 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 PHYSICAL EXAMINATION: GENERAL: She is alert, oriented. VITAL SIGNS: Blood pressure is marginal at 80/40. Pulse rate is 40. She is afebrile. HEAD AND NECK: No jugular venous distention. CHEST: Decreased air entry bilaterally, but no crackles. CARDIOVASCULAR: Regular, with no rub detected. ABDOMEN: Soft, nontender. LOWER EXTREMITIES: No edema. LABORATORY DATA: Laboratory values reviewed. Sodium is 137, potassium is 4.2, BUN is 42, creatinine is 3.0. ASSESSMENT, IMPRESSION, PLAN: 1. Acute kidney injury. 2. Atrial fibrillation with rapid ventricular rate. 3. . 4. Her acute kidney injury is all due to prerenal issues. 5. We will back off the Levophed and bolus with IV fluid. 6. Initiate acute kidney injury workup. 7. Hold on all of her blood pressure medication for now. 8. Adjust all the doses of her medications to her current GFR. 9. No need for any diuretics at this point. 10. We will reevaluate her condition after a couple of boluses of normal saline, evaluate her urine output, decide about further management plan. <ELECTRONICALLY SIGNED> By: Kelly Muñoz MD 02/02/18 0739 0735 [id number] Kelly Muñoz MD /nt
[~2018-01-31 20:07] MED LIST changes: +ADULT LOW DOSE81 MG PO; +ASPIRIN325 PO; +ASPIRIN600 MG RECTAL; +ATENOLOL 100MG100 MG PO; +AUGMENTIN 875-1 EACH PO; +METHIMAZOLE5 MG PO
[2018-01-31 20:45] VITALS: BP 78/50
[2018-01-31 21:04] LABS: ABSOLUTE NEUTROPHILS 4.8 thou/uL (1.4-8.2); BASOPHILS 1.4 % (0.0-2.0); EOSINOPHILS 1.3 % (0.0-3.0); HEMATOCRIT 40.1 % (37.0-47.0); HEMOGLOBIN 13.1 gm/dL (12.0-15.0); LYMPHOCYTES 31.2 % (24.0-44.0); MCH 28.6 pg (26.0-34.0); MCHC 32.8 g/dL (28.0-37.0); MCV 87.4 fL (80.0-100.0); MONOCYTES 11.4 % (1.0-8.0); PLATELET COUNT 334 thou/uL (150-400); POLYS 54.7 % (36.0-66.0); RBC 4.59 mil/uL (4.20-5.00); RDW 16.3 % (10.5-14.5); WBC 8.8 thou/uL (4.0-11.0)
[2018-01-31 21:13] LABS: ANION GAP 13 mmol/L (7-16); BUN 40 mg/dL (7-18); CALCIUM 9.8 mg/dL (8.5-10.1); CHLORIDE 95 mmol/L (98-107); CO2 28 mmol/L (21-32); CREATININE 2.7 mg/dL (0.6-1.0); GLUCOSE 145 mg/dL (74-106); POTASSIUM 3.7 mmol/L (3.5-5.1); SODIUM 136 mmol/L (136-145)
[2018-01-31 21:22] LABS: ALBUMIN 3.5 g/dL (3.4-5.0); SGOT 45 U/L (15-37); SGPT 34 U/L (30-65); TOTAL BILIRUBIN 1.9 mg/dL (<0.1-1.0); TOTAL PROTEIN 8.4 g/dL (6.4-8.2); TROPONIN-I <0.06 ng/mL (<0.06)
[2018-01-31 22:49] LABS: BE(vivo) 0.3 mmol/L (-2 to +3); HCO3 24.4 mmol/L (22.0-26.0); PCO2 37.9 mmHg (35.0-45.0); PO2 59.7 mmHg (80.0-100.0); pH 7.427 (7.360-7.450); sO2 91.6 % (92.0-98.0)
[2018-01-31 23:42] LABS: URINE BILIRUBIN 1+ (Negative); URINE BLOOD TRACE (Negative); URINE CLARITY CLEAR; URINE COLOR YELLOW; URINE GLUCOSE-RANDOM* TRACE (Negative); URINE KETONES NEGATIVE (Negative); URINE LEUKOCYTES-REFLEX NEGATIVE (Negative); URINE NITRITE-REFLEX NEGATIVE (Negative); URINE PROTEIN (DIPSTICK) 3+ (Negative)
[2018-01-31 23:56] LABS: AMORPHOUS PHOSPHATES Few /LPF (None Seen); BACTERIA-REFLEX 1-9 Few /HPF (None Seen); CASTS None Seen /LPF (None Seen); CRYSTALS None Seen /LPF (None Seen); ICTOTEST (BILI CONFIRMATORY) Positive (Negative); MUCUS 0-3 Light strn/LPF (None Seen); SQUAMOUS 4-10 Moderate /LPF (0-3); URINE RBC 0-2 Rare /HPF (0-2); URINE WBC-REFLEX None Seen /HPF (0-5)
[2018-02-01] VITALS (9 sets, daily range): BP systolic 77–120; BP diastolic 42–110
[2018-02-01 03:05] LABS: POTASSIUM 4.2 mmol/L (3.5-5.1)
[2018-02-01 03:07] LABS: APTT 48.3 Seconds (24.5-32.8); FIBRINOGEN 269.2 mg/dL (210-360); INR 2.8; PROTIME 27.8 Seconds (9.3-11.4)
[2018-02-01 17:41] LABS: ABSOLUTE NEUTROPHILS 10.3 thou/uL (1.4-8.2); BASOPHILS 0.3 % (0.0-2.0); HEMATOCRIT 40.6 % (37.0-47.0); HEMOGLOBIN 12.8 gm/dL (12.0-15.0); LYMPHOCYTES 11.8 % (24.0-44.0); MCH 28.1 pg (26.0-34.0); MCHC 31.6 g/dL (28.0-37.0); MCV 89.1 fL (80.0-100.0); MONOCYTES 8.7 % (1.0-8.0); PLATELET COUNT 347 thou/uL (150-400); POLYS 79.2 % (36.0-66.0); RBC 4.56 mil/uL (4.20-5.00)
[2018-02-01 17:52] LABS: CALCIUM 8.7 mg/dL (8.5-10.1); CREATININE 3.4 mg/dL (0.6-1.0); POTASSIUM 4.4 mmol/L (3.5-5.1)
[2018-02-01 18:07] LABS: ALBUMIN 2.9 g/dL (3.4-5.0); TOTAL BILIRUBIN 4.1 mg/dL (<0.1-1.0); TOTAL PROTEIN 7.3 g/dL (6.4-8.2)
[2018-02-02] VITALS (16 sets, daily range): BP systolic 71–132; BP diastolic 27–95
[2018-02-02 05:44] LABS: BE(vivo) -9.2 mmol/L (-2 to +3); HCO3 16.2 mmol/L (22.0-26.0); PCO2 33.5 mmHg (35.0-45.0); PO2 93.5 mmHg (80.0-100.0); sO2 96.5 % (92.0-98.0)
[2018-02-02 05:46] LABS: pH 7.302 (7.360-7.450)
[2018-02-02 10:18] LABS: URINE BLOOD 3+ (Negative); URINE CLARITY CLEAR; URINE COLOR YELLOW; URINE GLUCOSE-RANDOM* TRACE (Negative); URINE KETONES TRACE (Negative); URINE LEUKOCYTES 2+ (Negative); URINE NITRITE POSITIVE (Negative); URINE PROTEIN (DIPSTICK) 3+ (Negative)
[2018-02-02 10:20] LABS: ICTOTEST (BILI CONFIRMATORY) Negative (Negative); URINE BILIRUBIN NEGATIVE (Negative)
[2018-02-02 10:25] LABS: MUCUS >6 Heavy strn/LPF (None Seen); SQUAMOUS 4-10 Moderate /LPF (0-3); URINE RBC >20 Many /HPF (0-2); URINE WBC >25 Many /HPF (0-5)
[2018-02-02 10:26] LABS: AMORPHOUS URATES Many /LPF (None Seen); COARSE GRANULAR CASTS 0-3 Few /LPF (None Seen); FINE GRANULAR CASTS 0-3 Few /LPF (None Seen); WBC CLUMPS Packed (None Seen)
[2018-02-02 10:27] LABS: URINE CREATININE-RANDOM* 39.8 mg/dL; URINE SODIUM-RANDOM* 89 mmol/L
[2018-02-02 10:53] LABS: URINE PROTEIN-RANDOM* >250 mg/dL (<11.9)
[2018-02-02 13:21] LABS: ABSOLUTE NEUTROPHILS 11.6 thou/uL (1.4-8.2); BASOPHILS 1.2 % (0.0-2.0); EOSINOPHILS 0.3 % (0.0-3.0); HEMATOCRIT 39.6 % (37.0-47.0); HEMOGLOBIN 12.6 gm/dL (12.0-15.0); LYMPHOCYTES 10.7 % (24.0-44.0); MCH 28.3 pg (26.0-34.0); MCHC 31.8 g/dL (28.0-37.0); MCV 89.1 fL (80.0-100.0); MONOCYTES 6.3 % (1.0-8.0); PLATELET COUNT 380 thou/uL (150-400); POLYS 81.5 % (36.0-66.0); RBC 4.44 mil/uL (4.20-5.00); RDW 16.5 % (10.5-14.5); WBC 14.3 thou/uL (4.0-11.0)
[2018-02-02 13:31] LABS: CREATININE 4.1 mg/dL (0.6-1.0); POTASSIUM 4.8 mmol/L (3.5-5.1)
[2018-02-02 13:35] LABS: APTT 39.9 Seconds (24.5-32.8); INR 4.2; PROTIME 41.8 Seconds (9.3-11.4)
[2018-02-02 13:56] LABS: ALBUMIN 3.1 g/dL (3.4-5.0); DIRECT BILIRUBIN 2.7 mg/dL (<0.1-0.3); MAGNESIUM 1.7 mg/dL (1.8-2.4); TOTAL BILIRUBIN 3.9 mg/dL (<0.1-1.0); TOTAL PROTEIN 7.5 g/dL (6.4-8.2)
[2018-02-02 23:58] LABS: HEMATOCRIT 33.1 % (37.0-47.0); HEMOGLOBIN 10.8 gm/dL (12.0-15.0); MCH 28.7 pg (26.0-34.0); MCHC 32.6 g/dL (28.0-37.0); RBC 3.77 mil/uL (4.20-5.00); RDW 16.6 % (10.5-14.5)
[2018-02-03] VITALS (7 sets, daily range): BP systolic 89–123; BP diastolic 58–79
[2018-02-03 00:07] LABS: APTT 34.3 Seconds (24.5-32.8)
[2018-02-03 00:11] LABS: PROTIME 27.2 Seconds (9.3-11.4)
[2018-02-03 00:15] LABS: INR 2.7
[2018-02-03 05:16] LABS: BE(vivo) -11.2 mmol/L (-2 to +3); HCO3 14.1 mmol/L (22.0-26.0); PCO2 29.7 mmHg (35.0-45.0); PO2 115.7 mmHg (80.0-100.0); pH 7.294 (7.360-7.450); sO2 97.9 % (92.0-98.0)
[2018-02-03 05:27] LABS: CALCIUM 7.2 mg/dL (8.5-10.1); POTASSIUM 4.7 mmol/L (3.5-5.1)
[2018-02-03 05:39] LABS: ABSOLUTE NEUTROPHILS 9.6 thou/uL (1.4-8.2); BASOPHILS 0.6 % (0.0-2.0); EOSINOPHILS 0.3 % (0.0-3.0); HEMATOCRIT 32.4 % (37.0-47.0); HEMOGLOBIN 10.5 gm/dL (12.0-15.0); LYMPHOCYTES 11.2 % (24.0-44.0); MCH 28.4 pg (26.0-34.0); MCHC 32.4 g/dL (28.0-37.0); MCV 87.9 fL (80.0-100.0); MONOCYTES 8.5 % (1.0-8.0); PLATELET COUNT 239 thou/uL (150-400); POLYS 79.4 % (36.0-66.0); RBC 3.68 mil/uL (4.20-5.00); RDW 16.5 % (10.5-14.5); WBC 12.1 thou/uL (4.0-11.0)
[2018-02-03 06:45] LABS: INR 3.5
[2018-02-03 08:14] LABS: BE(vivo) -14.5 mmol/L (-2 to +3); HCO3 11.5 mmol/L (22.0-26.0); PCO2 27.6 mmHg (35.0-45.0); PO2 104.5 mmHg (80.0-100.0); pH 7.237 (7.360-7.450)
[2018-02-03 08:49] LABS: DIRECT BILIRUBIN 2.7 mg/dL (<0.1-0.3); TOTAL BILIRUBIN 3.7 mg/dL (<0.1-1.0); TOTAL PROTEIN 7.1 g/dL (6.4-8.2)
[2018-02-03 12:26] LABS: BE(vivo) -10.8 mmol/L (-2 to +3); HCO3 14.2 mmol/L (22.0-26.0); PO2 387.7 mmHg (80.0-100.0); pH 7.309 (7.360-7.450); sO2 99.8 % (92.0-98.0)
[2018-02-03 18:20] LABS: HEMOGLOBIN 9.2 gm/dL (12.0-15.0); MCH 28.8 pg (26.0-34.0); MCV 87.2 fL (80.0-100.0); RBC 3.21 mil/uL (4.20-5.00); RDW 16.4 % (10.5-14.5); WBC 6.7 thou/uL (4.0-11.0)
[2018-02-03 18:23] LABS: ALBUMIN 2.9 g/dL (3.4-5.0); CALCIUM 7.5 mg/dL (8.5-10.1); MAGNESIUM 1.5 mg/dL (1.8-2.4); PHOSPHORUS 4.9 mg/dL (2.5-4.9)
[2018-02-03 18:25] LABS: CREATININE 3.5 mg/dL (0.6-1.0)
[2018-02-03 18:26] LABS: POTASSIUM 3.1 mmol/L (3.5-5.1)
[2018-02-03 18:27] LABS: APTT 36.3 Seconds (24.5-32.8)
[2018-02-04] VITALS (37 sets, daily range): BP systolic 89–131; BP diastolic 58–76
[2018-02-04 00:55] LABS: ALBUMIN 2.7 g/dL (3.4-5.0); CALCIUM 7.7 mg/dL (8.5-10.1); CREATININE 2.6 mg/dL (0.6-1.0); MAGNESIUM 2.2 mg/dL (1.8-2.4); PHOSPHORUS 3.4 mg/dL (2.5-4.9)
[2018-02-04 01:02] LABS: POTASSIUM 2.9 mmol/L (3.5-5.1)
[2018-02-04 01:03] LABS: ALBUMIN 2.7 g/dL (3.4-5.0); CALCIUM 7.7 mg/dL (8.5-10.1); CREATININE 2.6 mg/dL (0.6-1.0); TOTAL BILIRUBIN 3.2 mg/dL (<0.1-1.0); TOTAL PROTEIN 6.2 g/dL (6.4-8.2)
[2018-02-04 01:04] LABS: POTASSIUM 2.9 mmol/L (3.5-5.1)
[2018-02-04 04:53] LABS: BE(vivo) 1.9 mmol/L (-2 to +3); HCO3 24.6 mmol/L (22.0-26.0); PCO2 31.2 mmHg (35.0-45.0); PO2 149.2 mmHg (80.0-100.0); pH 7.515 (7.360-7.450); sO2 99.1 % (92.0-98.0)
[2018-02-04 05:55] LABS: ABSOLUTE NEUTROPHILS 3.2 thou/uL (1.4-8.2); BASOPHILS 0.7 % (0.0-2.0); EOSINOPHILS 2.7 % (0.0-3.0); HEMATOCRIT 25.2 % (37.0-47.0); HEMOGLOBIN 8.6 gm/dL (12.0-15.0); LYMPHOCYTES 20.4 % (24.0-44.0); MCH 29.6 pg (26.0-34.0); MCHC 34.3 g/dL (28.0-37.0); MCV 86.3 fL (80.0-100.0); MONOCYTES 5.7 % (1.0-8.0); PLATELET COUNT 134 thou/uL (150-400); POLYS 70.5 % (36.0-66.0); RBC 2.92 mil/uL (4.20-5.00); RDW 16.2 % (10.5-14.5); WBC 4.5 thou/uL (4.0-11.0)
[2018-02-04 05:56] LABS: CALCIUM 7.7 mg/dL (8.5-10.1); POTASSIUM 3.4 mmol/L (3.5-5.1)
[2018-02-04 06:55] LABS: APTT 31.2 Seconds (24.5-32.8); INR 2.4; PROTIME 24.3 Seconds (9.3-11.4)
[2018-02-04 08:31] LABS: BE(vivo) 0.5 mmol/L (-2 to +3); PCO2 34.4 mmHg (35.0-45.0); PO2 104.2 mmHg (80.0-100.0); pH 7.462 (7.360-7.450); sO2 98.1 % (92.0-98.0)
[2018-02-04 12:46] LABS: ALBUMIN 2.8 g/dL (3.4-5.0); CALCIUM 8.3 mg/dL (8.5-10.1); CREATININE 2.3 mg/dL (0.6-1.0); MAGNESIUM 2.2 mg/dL (1.8-2.4); PHOSPHORUS 2.8 mg/dL (2.5-4.9); POTASSIUM 4.1 mmol/L (3.5-5.1)
[2018-02-05] VITALS (12 sets, daily range): BP systolic 93–121; BP diastolic 63–86
[2018-02-05 00:36] LABS: INR 1.9; PROTIME 19.4 Seconds (9.3-11.4)
[2018-02-05 01:17] LABS: COMPLEMENT-C3 58 mg/dL (82-167); COMPLEMENT-C4 7 mg/dL (14-44)
[2018-02-05 04:57] LABS: APTT 30.1 Seconds (24.5-32.8); D-DIMER 10.19 ug/mLFEU (0.19-0.50); FIBRINOGEN 273.5 mg/dL (210-360); INR 1.8; PROTIME 17.9 Seconds (9.3-11.4)
[2018-02-05 05:03] LABS: ALBUMIN 2.5 g/dL (3.4-5.0); CREATININE 2.5 mg/dL (0.6-1.0); POTASSIUM 3.5 mmol/L (3.5-5.1); TOTAL BILIRUBIN 3.4 mg/dL (<0.1-1.0); TOTAL PROTEIN 6.4 g/dL (6.4-8.2)
[2018-02-05 05:04] LABS: BE(vivo) 0.4 mmol/L (-2 to +3); HCO3 24.2 mmol/L (22.0-26.0); PCO2 35.7 mmHg (35.0-45.0); PO2 96.6 mmHg (80.0-100.0); pH 7.449 (7.360-7.450); sO2 97.7 % (92.0-98.0)
[2018-02-06] VITALS (21 sets, daily range): BP systolic 95–130; BP diastolic 63–103
[2018-02-06 05:43] LABS: HEMATOCRIT 27.3 % (37.0-47.0); HEMOGLOBIN 9.1 gm/dL (12.0-15.0); MCH 29.2 pg (26.0-34.0); MCHC 33.5 g/dL (28.0-37.0); MCV 87.2 fL (80.0-100.0); PLATELET COUNT 135 thou/uL (150-400); RBC 3.13 mil/uL (4.20-5.00); RDW 16.5 % (10.5-14.5); WBC 4.2 thou/uL (4.0-11.0)
[2018-02-06 05:55] LABS: INR 1.4; PROTIME 13.9 Seconds (9.3-11.4)
[2018-02-06 06:03] LABS: ALBUMIN 2.3 g/dL (3.4-5.0); CALCIUM 8.2 mg/dL (8.5-10.1); PHOSPHORUS 3.5 mg/dL (2.5-4.9); POTASSIUM 3.2 mmol/L (3.5-5.1); TOTAL BILIRUBIN 3.3 mg/dL (<0.1-1.0); TOTAL PROTEIN 6.2 g/dL (6.4-8.2)
[2018-02-06 08:22] LABS: ABSOLUTE NEUTROPHILS 2.3 thou/uL (1.4-8.2); PLATELET ESTIMATE NORMAL
[2018-02-07] VITALS (15 sets, daily range): BP systolic 11–158; BP diastolic 71–120
[2018-02-07 04:55] LABS: AMMONIA 44 umol/L (11-32)
[2018-02-07 04:56] LABS: % SATURATION 19 % (20-39); IRON 47 ug/dL (50-170); TIBC 252 ug/dL (250-450)
[2018-02-07 04:57] LABS: ALBUMIN 2.3 g/dL (3.4-5.0); CALCIUM 8.6 mg/dL (8.5-10.1); CREATININE 1.7 mg/dL (0.6-1.0); POTASSIUM 3.7 mmol/L (3.5-5.1); TOTAL BILIRUBIN 2.8 mg/dL (<0.1-1.0); TOTAL PROTEIN 6.7 g/dL (6.4-8.2)
[2018-02-07 04:59] LABS: CHOLESTEROL 122 mg/dL (<200); HDL CHOLESTEROL 21 mg/dL (>40); LDL CHOLESTEROL 84 mg/dL (<100); TC:HDL 5.8 Ratio (Not establshd); TRIGLYCERIDE 89 mg/dL (<150); VLDL 18 mg/dL (<40)
[2018-02-07 05:00] LABS: HEMATOCRIT 28.7 % (37.0-47.0); HEMOGLOBIN 9.5 gm/dL (12.0-15.0); MCH 28.8 pg (26.0-34.0); MCHC 32.9 g/dL (28.0-37.0); MCV 87.5 fL (80.0-100.0); RBC 3.28 mil/uL (4.20-5.00); WBC 5.2 thou/uL (4.0-11.0)
[2018-02-07 05:12] LABS: HEPATITIS B SURFACE AG Negative (Negative); HEPATITIS C VIRUS AB <0.1 (0.0-0.9)
[2018-02-07 10:07] LABS: ANA INTERPRETATION Negative (Negative)
[2018-02-07 10:30] LABS: KAPPA FREE LIGHT CHAINS 189.4 mg/L (3.3-19.4); LAMBDA FREE LIGHT CHAINS 94.5 mg/L (5.7-26.3)
[2018-02-08 04:28] LABS: ALBUMIN 2.2 g/dL (3.4-5.0); CALCIUM 8.4 mg/dL (8.5-10.1); CREATININE 1.6 mg/dL (0.6-1.0); POTASSIUM 3.6 mmol/L (3.5-5.1); TOTAL BILIRUBIN 2.6 mg/dL (<0.1-1.0); TOTAL PROTEIN 6.6 g/dL (6.4-8.2)
[2018-02-08 04:41] LABS: HEMATOCRIT 28.6 % (37.0-47.0); HEMOGLOBIN 9.4 gm/dL (12.0-15.0); MCH 29.1 pg (26.0-34.0); MCHC 32.8 g/dL (28.0-37.0); MCV 88.6 fL (80.0-100.0); RBC 3.23 mil/uL (4.20-5.00); RDW 17.5 % (10.5-14.5); WBC 5.7 thou/uL (4.0-11.0)
[2018-02-08 09:10] LABS: INR 1.3; PROTIME 13.5 Seconds (9.3-11.4)
[2018-02-08 09:14] LABS: GLOMERULR BASEM MEMBRN AB 6 units (0-20)
[2018-02-08 15:09] LABS: CERULOPLASMIN 25.4 mg/dL (19.0-39.0)
[2018-02-08 20:00] VITALS: BP 137/102
[2018-02-08 22:00] VITALS: BP 115/83
[2018-02-09] VITALS (20 sets, daily range): BP systolic 103–150; BP diastolic 71–110
[2018-02-09 05:01] LABS: HEMATOCRIT 27.8 % (37.0-47.0); MCH 28.8 pg (26.0-34.0); MCHC 32.4 g/dL (28.0-37.0); MCV 88.7 fL (80.0-100.0); PLATELET COUNT 119 thou/uL (150-400); RBC 3.14 mil/uL (4.20-5.00); RDW 17.6 % (10.5-14.5); WBC 5.2 thou/uL (4.0-11.0)
[2018-02-09 05:15] LABS: ALBUMIN 2.1 g/dL (3.4-5.0); CALCIUM 8.8 mg/dL (8.5-10.1); CREATININE 1.4 mg/dL (0.6-1.0); PHOSPHORUS 3.1 mg/dL (2.5-4.9); POTASSIUM 3.6 mmol/L (3.5-5.1)
[2018-02-09 08:04] LABS: ABSOLUTE NEUTROPHILS 3.2 thou/uL (1.4-8.2); ANISOCYTOSIS 1+; POIKILOCYTOSIS SLIGHT; POLYCHROMASIA OCCASIONAL
[2018-02-10] VITALS (25 sets, daily range): BP systolic 102–142; BP diastolic 69–106
[2018-02-10 05:01] LABS: CALCIUM 8.4 mg/dL (8.5-10.1); CREATININE 1.2 mg/dL (0.6-1.0); POTASSIUM 3.4 mmol/L (3.5-5.1)
[2018-02-10 05:15] LABS: BE(vivo) 2.4 mmol/L (-2 to +3); HCO3 27.3 mmol/L (22.0-26.0); PCO2 44.1 mmHg (35.0-45.0); PO2 91.7 mmHg (80.0-100.0)
[2018-02-10 05:28] LABS: HEMATOCRIT 27.9 % (37.0-47.0); MCH 28.9 pg (26.0-34.0); MCHC 32.3 g/dL (28.0-37.0); MCV 89.5 fL (80.0-100.0); RBC 3.11 mil/uL (4.20-5.00); RDW 17.6 % (10.5-14.5); WBC 5.1 thou/uL (4.0-11.0)
[2018-02-10 08:52] LABS: BE(vivo) 1.8 mmol/L (-2 to +3); HCO3 26.6 mmol/L (22.0-26.0); PCO2 42.7 mmHg (35.0-45.0); PO2 92.3 mmHg (80.0-100.0); pH 7.412 (7.360-7.450); sO2 97.1 % (92.0-98.0)
[2018-02-11] VITALS (9 sets, daily range): BP systolic 102–121; BP diastolic 67–97
[2018-02-11 09:28] LABS: HEMATOCRIT 28.9 % (37.0-47.0); HEMOGLOBIN 9.2 gm/dL (12.0-15.0); MCH 28.9 pg (26.0-34.0); MCHC 31.9 g/dL (28.0-37.0); MCV 90.7 fL (80.0-100.0); RBC 3.19 mil/uL (4.20-5.00); RDW 18.6 % (10.5-14.5); WBC 6.1 thou/uL (4.0-11.0)
[2018-02-11 09:40] LABS: ALBUMIN 2.1 g/dL (3.4-5.0); CALCIUM 8.6 mg/dL (8.5-10.1); CREATININE 1.2 mg/dL (0.6-1.0)
[2018-02-12 05:29] LABS: HEMATOCRIT 32.1 % (37.0-47.0); HEMOGLOBIN 10.3 gm/dL (12.0-15.0); MCH 28.8 pg (26.0-34.0); MCV 90.1 fL (80.0-100.0); RBC 3.56 mil/uL (4.20-5.00); RDW 18.7 % (10.5-14.5); WBC 6.7 thou/uL (4.0-11.0)
[2018-02-12 05:37] LABS: ALBUMIN 2.4 g/dL (3.4-5.0); CALCIUM 8.8 mg/dL (8.5-10.1); CREATININE 1.2 mg/dL (0.6-1.0); PHOSPHORUS 3.6 mg/dL (2.5-4.9); POTASSIUM 4.2 mmol/L (3.5-5.1)
[2018-02-12 05:41] LABS: BE(vivo) 0.7 mmol/L (-2 to +3); HCO3 22.2 mmol/L (22.0-26.0); PO2 147.8 mmHg (80.0-100.0); pH 7.579 (7.360-7.450); sO2 99.2 % (92.0-98.0)
[2018-02-12 05:42] LABS: PCO2 24.3 mmHg (35.0-45.0)
[2018-02-12 10:04] LABS: ALBUMIN 2.5 g/dL (3.4-5.0); DIRECT BILIRUBIN 0.8 mg/dL (<0.1-0.3); TOTAL BILIRUBIN 1.2 mg/dL (<0.1-1.0); TOTAL PROTEIN 7.5 g/dL (6.4-8.2)
[2018-02-12 11:52] LABS: BE(vivo) -2.5 mmol/L (-2 to +3); PCO2 36.7 mmHg (35.0-45.0); PO2 85.8 mmHg (80.0-100.0); pH 7.395 (7.360-7.450); sO2 96.5 % (92.0-98.0)
[2018-02-12 19:00] VITALS: BP 127/90
[2018-02-12 20:00] VITALS: BP 139/98
[2018-02-12 21:00] VITALS: BP 112/75
[2018-02-12 22:00] VITALS: BP 128/97
[2018-02-12 23:00] VITALS: BP 113/86
[2018-02-13] VITALS (7 sets, daily range): BP systolic 104–141; BP diastolic 76–103
[2018-02-13 04:18] LABS: ALBUMIN 2.2 g/dL (3.4-5.0); CALCIUM 8.5 mg/dL (8.5-10.1); CREATININE 1.1 mg/dL (0.6-1.0); POTASSIUM 3.8 mmol/L (3.5-5.1); TOTAL BILIRUBIN 1.1 mg/dL (<0.1-1.0); TOTAL PROTEIN 6.8 g/dL (6.4-8.2)
[2018-02-13 04:26] LABS: HEMATOCRIT 29.2 % (37.0-47.0); HEMOGLOBIN 9.4 gm/dL (12.0-15.0); MCH 28.7 pg (26.0-34.0); MCV 89.6 fL (80.0-100.0); RBC 3.26 mil/uL (4.20-5.00); RDW 19.1 % (10.5-14.5); WBC 4.9 thou/uL (4.0-11.0)
[2018-02-13 09:38] LABS: BE(vivo) -1.7 mmol/L (-2 to +3); HCO3 23.2 mmol/L (22.0-26.0); PO2 76.5 mmHg (80.0-100.0); pH 7.382 (7.360-7.450); sO2 95.1 % (92.0-98.0)
[2018-02-13 09:52] LABS: INR 1.2; PROTIME 12.5 Seconds (9.3-11.4)
[2018-02-14 01:35] LABS: BE(vivo) 0.9 mmol/L (-2 to +3); HCO3 25.2 mmol/L (22.0-26.0); PCO2 38.9 mmHg (35.0-45.0); PO2 64.6 mmHg (80.0-100.0); pH 7.429 (7.360-7.450); sO2 93.2 % (92.0-98.0)
[2018-02-14 05:25] LABS: ALBUMIN 2.6 g/dL (3.4-5.0); CALCIUM 8.9 mg/dL (8.5-10.1); CREATININE 1.2 mg/dL (0.6-1.0); HEMATOCRIT 31.4 % (37.0-47.0); HEMOGLOBIN 10.1 gm/dL (12.0-15.0); MCHC 32.2 g/dL (28.0-37.0); MCV 90.2 fL (80.0-100.0); PHOSPHORUS 4.2 mg/dL (2.5-4.9); POTASSIUM 4.3 mmol/L (3.5-5.1); RBC 3.48 mil/uL (4.20-5.00); RDW 20.1 % (10.5-14.5); WBC 6.8 thou/uL (4.0-11.0)
[2018-02-14 09:00] VITALS: BP 129/94
[2018-02-14 12:00] VITALS: BP 131/103
[2018-02-14 16:00] VITALS: BP 108/79
[2018-02-14 18:00] VITALS: BP 121/77
[2018-02-14 20:00] VITALS: BP 129/83
[2018-02-15] VITALS (13 sets, daily range): BP systolic 108–153; BP diastolic 62–107
[2018-02-15 05:16] LABS: CREATININE 1.3 mg/dL (0.6-1.0)
[2018-02-15 05:24] LABS: ALBUMIN 2.7 g/dL (3.4-5.0); DIRECT BILIRUBIN 1.1 mg/dL (<0.1-0.3); TOTAL BILIRUBIN 1.5 mg/dL (<0.1-1.0); TOTAL PROTEIN 7.4 g/dL (6.4-8.2)
[2018-02-15 05:31] LABS: HEMATOCRIT 30.3 % (37.0-47.0); HEMOGLOBIN 9.8 gm/dL (12.0-15.0); MCH 29.2 pg (26.0-34.0); MCHC 32.3 g/dL (28.0-37.0); MCV 90.4 fL (80.0-100.0); RBC 3.35 mil/uL (4.20-5.00); RDW 20.2 % (10.5-14.5); WBC 7.1 thou/uL (4.0-11.0)
[2018-02-16 04:03] VITALS: BP 170/104
[2018-02-16 05:46] LABS: HEMATOCRIT 31.1 % (37.0-47.0); HEMOGLOBIN 9.9 gm/dL (12.0-15.0); MCH 28.9 pg (26.0-34.0); MCHC 31.8 g/dL (28.0-37.0); RBC 3.41 mil/uL (4.20-5.00); RDW 20.9 % (10.5-14.5); WBC 6.8 thou/uL (4.0-11.0)
[2018-02-16 05:52] LABS: CALCIUM 9.2 mg/dL (8.5-10.1); CREATININE 1.4 mg/dL (0.6-1.0); POTASSIUM 3.7 mmol/L (3.5-5.1)
[2018-02-16 07:55] VITALS: BP 160/104
[2018-02-16 21:30] VITALS: BP 152/107
[2018-02-17 04:30] VITALS: BP 134/90
[2018-02-17 09:03] VITALS: BP 121/90
[2018-02-17 17:05] VITALS: BP 103/60
[2018-02-17 20:30] VITALS: BP 120/70
[2018-02-18 03:22] VITALS: BP 127/91
[2018-02-18 07:23] VITALS: BP 131/75
[2018-02-18 08:25] LABS: HEMATOCRIT 28.1 % (37.0-47.0); MCH 29.1 pg (26.0-34.0); MCHC 32.2 g/dL (28.0-37.0); MCV 90.2 fL (80.0-100.0); RBC 3.11 mil/uL (4.20-5.00); RDW 21.1 % (10.5-14.5); WBC 6.1 thou/uL (4.0-11.0)
[2018-02-18 08:33] LABS: CALCIUM 8.7 mg/dL (8.5-10.1); CREATININE 1.1 mg/dL (0.6-1.0)
[2018-02-18] MEDS ORDERED: AUGMENTIN 875-1 EACH PO (15:37)
[2018-02-18] MEDS ORDERED: ATENOLOL 25MG T25 MG PER TUBE (15:38)
[2018-02-18] MEDS ORDERED: IPRAT-ALBUT 0.5-3 ML INH (15:38)
[2018-02-18] MEDS ORDERED: NORVASC10 MG PO (15:39)
[2018-02-18] MEDS ORDERED: CARDIZEM60 MG PER TUBE (15:39)
[2018-02-18] MEDS ORDERED: PEPCID20 MG PER TUBE (15:40)
[2018-02-18 15:53] VITALS: BP 133/74
== END 2018-02-18 17:42 | DRG 870 ==
LOC: ER 20:07 → EROBS 02-01 00:26 → ICU 02-01 00:26 → 4E 02-15 20:53
PROVIDERS: Hospitalist; Internal Medicine; Internal Medicine Cardiovascular Disease; Internal Medicine Gastroenterology; Internal Medicine Hematology & Oncology; Internal Medicine Nephrology; Internal Medicine Pulmonary Disease; Nurse Practitioner; Nurse Practitioner Acute Care; Nurse Practitioner Family; Physician Assistant; Radiology Vascular & Interventional Radiology; Specialist; Surgery
PROC: 0F9430Z Drainage of Gallbladder with Drainage Device, Percutaneous Approach (ICD-10-PCS; principal; 2018-02-02)
PROC: 30233K1 Transfusion of Nonautologous Frozen Plasma into Peripheral Vein, Percutaneous Approach (ICD-10-PCS; principal; 2018-02-02)
PROC: 4A133B1 Monitoring of Arterial Pressure, Peripheral, Percutaneous Approach (ICD-10-PCS; principal; 2018-02-02)
PROC: 30233L1 Transfusion of Nonautologous Fresh Plasma into Peripheral Vein, Percutaneous Approach (ICD-10-PCS; principal; 2018-02-02)
PROC: 04HY32Z Insertion of Monitoring Device into Lower Artery, Percutaneous Approach (ICD-10-PCS; principal; 2018-02-02)
PROC: 4A133J1 Monitoring of Arterial Pulse, Peripheral, Percutaneous Approach (ICD-10-PCS; principal; 2018-02-02)
PROC: 0BH17EZ Insertion of Endotracheal Airway into Trachea, Via Natural or Artificial Opening (ICD-10-PCS; 2018-02-03)
PROC: 5A1955Z Respiratory Ventilation, Greater than 96 Consecutive Hours (ICD-10-PCS; 2018-02-03)
DX: A41.9 Sepsis, unspecified organism (principal); J18.9 Pneumonia, unspecified organism; R65.21 Severe sepsis with septic shock; J96.01 Acute respiratory failure with hypoxia; K85.90 Acute pancreatitis without necrosis or infection, unspecified; I50.33 Acute on chronic diastolic (congestive) heart failure; G92 Toxic encephalopathy; K72.00 Acute and subacute hepatic failure without coma; T82.838A Hemorrhage due to vascular prosthetic devices, implants and grafts, initial encounter; N17.9 Acute kidney failure, unspecified; D68.9 Coagulation defect, unspecified; I42.9 Cardiomyopathy, unspecified; K80.00 Calculus of gallbladder with acute cholecystitis without obstruction; N39.0 Urinary tract infection, site not specified; E46 Unspecified protein-calorie malnutrition; G72.81 Critical illness myopathy; J98.11 Atelectasis; I13.0 Hypertensive heart and chronic kidney disease with heart failure and stage 1 through stage 4 chronic kidney disease, or unspecified chronic kidney disease; I48.91 Unspecified atrial fibrillation; N18.9 Chronic kidney disease, unspecified; T68.XXXA Hypothermia, initial encounter; G47.33 Obstructive sleep apnea (adult) (pediatric); I95.9 Hypotension, unspecified; I35.0 Nonrheumatic aortic (valve) stenosis; K74.60 Unspecified cirrhosis of liver; D69.6 Thrombocytopenia, unspecified; K58.9 Irritable bowel syndrome, unspecified; F41.9 Anxiety disorder, unspecified; K80.80 Other cholelithiasis without obstruction; Y84.1 Kidney dialysis as the cause of abnormal reaction of the patient, or of later complication, without mention of misadventure at the time of the procedure; Y92.89 Other specified places as the place of occurrence of the external cause; E87.6 Hypokalemia; K83.9 Disease of biliary tract, unspecified; R13.10 Dysphagia, unspecified; E27.9 Disorder of adrenal gland, unspecified; I07.1 Rheumatic tricuspid insufficiency; I34.0 Nonrheumatic mitral (valve) insufficiency; F10.10 Alcohol abuse, uncomplicated; Z68.36 Body mass index [BMI] 36.0-36.9, adult; Z91.14 Patient's other noncompliance with medication regimen; Z82.49 Family history of ischemic heart disease and other diseases of the circulatory system; Z91.041 Radiographic dye allergy status
CPT/HCPCS: 10078; 10783; 27000; 32110; 85010; 85014

== ENCOUNTER 2018-03-04 15:52 | Emergency (ER) | payer OTHER ==
[~2018-03-04] VITALS: Ht 160 cm; Wt 86.2 kg
--- NOTE | ~2018-03-04 | EKG ---
[address] [address] ELECTROCARDIOGRAM REPORT Name: FENG SANABRIA [facility] [id number] Admission: 03/04/18 Attend Phys: Discharge: 03/04/18 Date of : 62 Report #: [id number] THIS REPORT FOR: //name// [facility] ED Test Date: 2018-03-04 Test Time: 16:42:19 Pat Name: FENG SANABRIA Department: Room: Gender: F Mold Tooler: [facility] : 1960 Requested By: Anay Maldonado Order Number: [id number] MD: Mich Fonseca Measurements Intervals [place] Rate: 67 P: ND: QRS: 110 QRSD: 106 T: 181 QT: 439 QTc: 464 Interpretive Statements Atrial fibrillation Right axis deviation Borderline repolarization abnormality Compared to ECG 01/31/2018 20:30:04 premature ventricular complexes no longer present limb lead reversal no longer present Electronically Signed On 03-05-2018 8:08:41 CDT by Mich Fonseca [email or web address] <ELECTRONICALLY SIGNED> By: Mich Fonseca MD, [facility] 03/05/18 0808 41 41 Mich Fonseca MD, [facility] /EPI
[~2018-03-04 15:52] MED LIST changes: +ATENOLOL 25MG T25 MG PER TUBE; +CARDIZEM60 MG PER TUBE; +IPRAT-ALBUT 0.5-3 ML INH; +NORVASC10 MG PO; +PEPCID20 MG PER TUBE
[2018-03-04] MEDS ORDERED: DEMADEX20 MG PO (16:27)
[2018-03-04 16:40] LABS: HEMATOCRIT 31.7 % (37.0-47.0); HEMOGLOBIN 10.2 gm/dL (12.0-15.0); MCH 27.9 pg (26.0-34.0); MCHC 32.2 g/dL (28.0-37.0); MCV 86.7 fL (80.0-100.0); PLATELET COUNT 331 thou/uL (150-400); RBC 3.66 mil/uL (4.20-5.00); RDW 18.4 % (10.5-14.5); WBC 7.4 thou/uL (4.0-11.0)
[2018-03-04 16:58] LABS: CREATININE 2.1 mg/dL (0.6-1.0)
[2018-03-04 17:04] LABS: ALBUMIN 3.3 g/dL (3.4-5.0); TOTAL BILIRUBIN 0.6 mg/dL (<0.1-1.0); TOTAL PROTEIN 8.3 g/dL (6.4-8.2)
[2018-03-04 17:09] LABS: ABSOLUTE NEUTROPHILS 4.4 thou/uL (1.4-8.2); ANISOCYTOSIS 1+
[2018-03-04 17:10] LABS: POLYCHROMASIA OCCASIONAL
[2018-03-07] MEDS ORDERED: XARELTO20 MG PO (05:22)
== END 2018-03-04 18:43 | disposition home or self-care (01) ==
LOC: ER 15:52
PROVIDERS: Nurse Practitioner Family
DX: R60.0 Localized edema (principal); N18.9 Chronic kidney disease, unspecified; E87.6 Hypokalemia; I13.0 Hypertensive heart and chronic kidney disease with heart failure and stage 1 through stage 4 chronic kidney disease, or unspecified chronic kidney disease; I50.9 Heart failure, unspecified; G47.30 Sleep apnea, unspecified; I48.91 Unspecified atrial fibrillation; Z91.041 Radiographic dye allergy status

== ENCOUNTER 2018-04-22 05:02 | Inpatient (IN) | payer OTHER ==
[2018-04-22] VITALS (8 sets, daily range): BP systolic 106–142; BP diastolic 70–104
[~2018-04-22] VITALS: Ht 154.9 cm; Wt 81.2 kg
--- NOTE | ~2018-04-22 | EKG ---
[address] [address] [address] [facility] [place] [address] ELECTROCARDIOGRAM REPORT Name: FENG SANABRIA Room #: 201-P ADM IN M.R.#: [id number] Admission: 04/22/18 Attend Phys: Jaime Beck MD Discharge: Date of : 62 Report #: [id number] THIS REPORT FOR: //name// [facility] ED Test Date: 2018-04-22 Test Time: 05:08:17 Pat Name: FENG SANABRIA Department: Room: 201 Gender: F Slack Line Yarder: JERRY : 1960 Requested By: Zeeshan Her Order Number: [id number] MD: Mich Fonseca Measurements Intervals [place] Rate: 158 P: [place]: QRS: 115 QRSD: 91 T: 33 QT: 320 QTc: 519 Interpretive Statements Atrial fibrillation Left posterior fascicular block Low voltage, extremity leads Abnormal R-wave progression, late transition Prolonged QT interval Compared to ECG 03/04/2018 16:42:19 Heart rates have increased Electronically Signed On 04-22-2018 8:49:54 CDT by Mich Fonseca [email or web address] <ELECTRONICALLY SIGNED> By: Mich Fonseca MD, [facility] 04/22/18 0849 0508 0508 Mich Fonseca MD, [facility] /EPI
[~2018-04-22 05:02] MED LIST changes: +CARDIZEM CD120 MG PO; +DILTIAZEM HCL90 MG PO; +HYDROCODONE-AP1 EAC6 PO; +NORCO 7.5-3251 EACH PO; +PAXIL10 MG; +SENNA-S TABLET1 EACH PO; +SENNA-TIME S T1 EACH PO; +XARELTO20 MG PO
[2018-04-22 05:28] LABS: ABSOLUTE NEUTROPHILS 3.7 thou/uL (1.4-8.2); BASOPHILS 0.6 % (0.0-2.0); HEMATOCRIT 31.1 % (37.0-47.0); LYMPHOCYTES 41.3 % (24.0-44.0); MCH 26.3 pg (26.0-34.0); MONOCYTES 7.9 % (1.0-8.0); PLATELET COUNT 333 thou/uL (150-400); POLYS 49.2 % (36.0-66.0); RBC 3.79 mil/uL (4.20-5.00); RDW 17.3 % (10.5-14.5); WBC 7.5 thou/uL (4.0-11.0)
[2018-04-22 05:37] LABS: ANION GAP 8 mmol/L (7-16); BUN 20 mg/dL (7-18); CALCIUM 9.8 mg/dL (8.5-10.1); CHLORIDE 100 mmol/L (98-107); CO2 26 mmol/L (21-32); CREATININE 1.3 mg/dL (0.6-1.0); GLUCOSE 113 mg/dL (74-106); POTASSIUM 3.5 mmol/L (3.5-5.1); SODIUM 134 mmol/L (136-145)
[2018-04-22 05:46] LABS: ALBUMIN 3.3 g/dL (3.4-5.0); MAGNESIUM 2.3 mg/dL (1.8-2.4); SGOT 22 U/L (15-37); SGPT 18 U/L (30-65); TOTAL BILIRUBIN 0.5 mg/dL (<0.1-1.0); TOTAL PROTEIN 8.2 g/dL (6.4-8.2); TROPONIN-I <0.06 ng/mL (<0.06)
[2018-04-23 04:01] LABS: CALCIUM 9.6 mg/dL (8.5-10.1); CREATININE 1.4 mg/dL (0.6-1.0); POTASSIUM 3.6 mmol/L (3.5-5.1)
[2018-04-23 04:39] LABS: ABSOLUTE NEUTROPHILS 6.1 thou/uL (1.4-8.2); BASOPHILS 0.3 % (0.0-2.0); EOSINOPHILS 0.1 % (0.0-3.0); HEMATOCRIT 27.6 % (37.0-47.0); HEMOGLOBIN 8.8 gm/dL (12.0-15.0); LYMPHOCYTES 15.6 % (24.0-44.0); MCHC 31.9 g/dL (28.0-37.0); MCV 81.4 fL (80.0-100.0); MONOCYTES 11.5 % (1.0-8.0); PLATELET COUNT 279 thou/uL (150-400); POLYS 72.5 % (36.0-66.0); RBC 3.39 mil/uL (4.20-5.00); RDW 17.1 % (10.5-14.5); WBC 8.4 thou/uL (4.0-11.0)
[2018-04-23 05:27] VITALS: BP 110/63
[2018-04-23 07:20] VITALS: BP 110/63
[2018-04-23 12:00] VITALS: BP 123/80
[2018-04-23 15:40] VITALS: BP 128/79
[2018-04-23 15:45] VITALS: BP 126/68
[2018-04-23 20:21] VITALS: BP 129/87
[2018-04-24 00:25] VITALS: BP 126/80
[2018-04-24 04:05] LABS: CREATININE 1.3 mg/dL (0.6-1.0); POTASSIUM 3.5 mmol/L (3.5-5.1)
[2018-04-24 04:15] VITALS: BP 126/76
[2018-04-24 04:22] LABS: HEMOGLOBIN 8.5 gm/dL (12.0-15.0); MCHC 31.5 g/dL (28.0-37.0); MCV 82.3 fL (80.0-100.0); RBC 3.28 mil/uL (4.20-5.00); RDW 16.8 % (10.5-14.5)
[2018-04-24 07:12] VITALS: BP 128/82
[2018-04-24 11:05] VITALS: BP 133/85
[2018-04-24 15:04] VITALS: BP 114/70
[2018-04-24 20:35] VITALS: BP 137/78
[2018-04-25 04:15] VITALS: BP 127/77
[2018-04-25 07:21] VITALS: BP 148/90
[2018-04-25 07:28] LABS: HEMATOCRIT 27.6 % (37.0-47.0); MCH 26.7 pg (26.0-34.0); MCHC 32.4 g/dL (28.0-37.0); MCV 82.4 fL (80.0-100.0); RBC 3.35 mil/uL (4.20-5.00); RDW 16.7 % (10.5-14.5); WBC 6.5 thou/uL (4.0-11.0)
[2018-04-25 11:34] VITALS: BP 121/77
[2018-04-25 16:59] VITALS: BP 114/66
[2018-04-25 21:25] VITALS: BP 124/74
[2018-04-26] VITALS (7 sets, daily range): BP systolic 134–135; BP diastolic 73–85
[2018-04-26 08:05] LABS: HEMATOCRIT 32.5 % (37.0-47.0); HEMOGLOBIN 10.3 gm/dL (12.0-15.0); MCH 26.5 pg (26.0-34.0); MCHC 31.8 g/dL (28.0-37.0); MCV 83.1 fL (80.0-100.0); RBC 3.91 mil/uL (4.20-5.00); RDW 16.7 % (10.5-14.5); WBC 6.9 thou/uL (4.0-11.0)
[2018-04-26 08:13] LABS: CALCIUM 9.7 mg/dL (8.5-10.1); CREATININE 1.4 mg/dL (0.6-1.0); POTASSIUM 3.1 mmol/L (3.5-5.1)
[2018-04-26] MEDS ORDERED: DEMADEX20 MG PO (08:57)
[2018-04-26] MEDS ORDERED: ATENOLOL 50MG T50 M1 PO (08:57)
[2018-04-26] MEDS ORDERED: CARDIZEM CD240 MG PO (12:57)
[2018-04-26] MEDS ORDERED: ATENOLOL 50MG T50 MG PO (12:57)
[2018-04-26] MEDS ORDERED: TORSEMIDE20 MG PO (12:58)
[2018-04-26] MEDS ORDERED: KLOR-CON M2020 MEQ PO (12:58)
[2018-04-26] MEDS ORDERED: MIRALAX17 GM PO (12:59)
[2018-04-26] MEDS ORDERED: PROTONIX 20 MG20 MG PO (12:59)
[2018-05-03] MEDS ORDERED: NEURONTIN 300300 M1 PO (12:36)
[2018-05-03] MEDS ORDERED: VALACYCLOVIR1000 MG PO (12:37)
[2018-05-03] MEDS ORDERED: VENTOLIN HFA 1818 GM INH (12:38)
[2018-05-03] MEDS ORDERED: ATENOLOL 50MG T50 M1 PO (13:16)
[2018-05-03] MEDS ORDERED: CARDIZEM CD240 MG PO (13:18)
== END 2018-04-26 14:57 | disposition home health service (06) | DRG 291 ==
LOC: ER 05:02 → EROBS 05:50 → 2N 05:50 → ENTRNSPT 04-26 14:43 → EDTRNSPTSTS 04-26 14:45 → 2N 04-26 14:57
PROVIDERS: Emergency Medicine; Nurse Practitioner; Nurse Practitioner Adult Health
DX: I13.0 Hypertensive heart and chronic kidney disease with heart failure and stage 1 through stage 4 chronic kidney disease, or unspecified chronic kidney disease (principal); I50.43 Acute on chronic combined systolic (congestive) and diastolic (congestive) heart failure; J18.9 Pneumonia, unspecified organism; J96.01 Acute respiratory failure with hypoxia; D68.59 Other primary thrombophilia; I42.8 Other cardiomyopathies; I48.91 Unspecified atrial fibrillation; N18.3 Chronic kidney disease, stage 3 (moderate); G47.33 Obstructive sleep apnea (adult) (pediatric); E78.5 Hyperlipidemia, unspecified; D64.9 Anemia, unspecified; K59.00 Constipation, unspecified; K59.03 Drug induced constipation; T40.2X5A Adverse effect of other opioids, initial encounter; K70.30 Alcoholic cirrhosis of liver without ascites; Z88.6 Allergy status to analgesic agent; Z91.041 Radiographic dye allergy status; Z90.49 Acquired absence of other specified parts of digestive tract; Z82.49 Family history of ischemic heart disease and other diseases of the circulatory system; Z91.14 Patient's other noncompliance with medication regimen; Z79.899 Other long term (current) drug therapy
CPT/HCPCS: 10081

== ENCOUNTER → 2018-05-06 | Outpatient (CLI) | payer OTHER ==
[~2018-05-06] VITALS: Ht 157.5 cm; Wt 77.1 kg
[~2018-05-06] MED LIST changes: +ATENOLOL 50MG T50 MG PO; +KLOR-CON M2020 MEQ PO; +MIRALAX17 GM PO; +NEURONTIN 300300 M1 PO; +PROTONIX 20 MG20 MG PO; +TORSEMIDE20 MG PO; +VALACYCLOVIR1000 MG PO; +VENTOLIN HFA 1818 GM INH
--- NOTE | ~2018-05-06 | PATH ---
[facility] [place] [address] PATHOLOGY RPT PROCEDURE Name: SARAH SANABRIA Room #: REG [facility] M.R.#: [id number] Admission: 05/06/18 Date of : 62 Discharge: Report #: [id number] Path Case #: [id number] [facility] Accession Number: [id number] . 01 Material submitted: . PART A: GASTRIC NODULE PART B: SMALL BOWEL R/O CELIAC PART C: GASTRIC BX R/O GASTRITIS . 01 Clinical history: . Pre-OP DX: Anemia Post-OP DX: Gastric BX . 02 Diagnosis: A. Gastric biopsy "gastric nodule biopsy": - Polypoid gastric mucosa with hyperplastic changes. - There is no evidence of adenomatous change, high-grade dysplasia or malignancy. - One fragment reveals a granuloma. - There is focal intestinal metaplasia. - Acid-fast stain and fungal stain are negative. - The differential includes infectious, autoimmune and also rarely granulomas are also seen in patient with Crohn's and inflammatory bowel disease. Suggest clinical correlation. . B. Small intestine mucosa "small bowel biopsy": - No obvious diagnostic changes. - There is no evidence of acute cryptitis, granulomas, adenomatous change or malignancy. - Diagnostic features of sprue are not seen. . C. Gastric biopsy "gastric biopsy": - Mild chronic gastritis arising in the background of chronic reactive gastropathy. - The immunoperoxidase stain for Helicobacter pylori is negative. - There is focal intestinal metaplasia. (SHA:jayde; 05/07/2018) QMS/05/07/2018 . 02 Electronically signed: . Francisco Mendoza MD, Pathologist NPI- [id number] . 01 Gross description: . A. Received in formalin labeled "Sarah Sanabria, gastric nodule, BX," are 4 segments of davies soft tissue measuring 1.3 x 0.6 x 0.3 [place] [address] PATHOLOGY RPT PROCEDURE Name: SARAH SANABRIA Room #: [facility] [id number] Admission: 05/06/18 Date of : 62 Discharge: Report #: [id number] Path Case #: [id number] dimensions and ranging from 0.3 to 0.5 cm in maximum dimension. The specimen is submitted entirely in cassette A1. . B. Received in formalin labeled "Sarah Sanabria, small bowel BX," are 7 segments of davies soft tissue measuring 1.6 x 0.9 x 0.3 cm in aggregate dimensions and ranging from 0.3 to 0.4 cm in maximum dimension. The specimen is submitted entirely in cassette B1. . C. Received in formalin labeled "Ciaran Sarah, gastric BX, rule out gastritis," are 4 segments of davies soft tissue measuring 0.9 x 0.7 x 0.2 cm in aggregate dimensions and ranging from 0.2 to 0.4 cm in maximum dimension. The specimen is submitted entirely in cassette C1. (TSD; 05/06/2018) TOB/TOB . 02 Pathologist provided ICD-10: K29.50, K31.9, K31.89 . 02 CPT . 505170, 622489, 242156, U10773, 782057, 834255 Specimen Comment: A courtesy copy of this report has been sent to Specimen Comment: [phone], . Specimen Comment: Report sent to / DR LITTLE Performed at: [address], [place] [id number] MD Lavell Jerome MD Phone: [phone] Performed at: [address] [id number] MD Bridgett Ruffin MD Phone: [phone]
--- NOTE | ~2018-05-06 | EKG ---
[address] [address] ELECTROCARDIOGRAM REPORT Name: ELLYTITIFENG PHU Room #: REG CLConstance Tobin#: [id number] Admission: 05/06/18 Attend Phys: Antonio Brannon DO Discharge: Date of : 62 Report #: [id number] THIS REPORT FOR: //name// [facility] Test Date: 2018-05-06 Test Time: 08:55:20 Pat Name: FENG SANABRIA Department: Room: Gender: F Computator: KAJAL : 1960 Requested By: Mirta Hooker Order Number: [id number] MD: Sky Bass Measurements Intervals [place] Rate: 134 P: [place]: QRS: 79 QRSD: 88 T: 18 QT: 346 QTc: 517 Interpretive Statements Atrial fibrillation Ventricular premature complex Abnormal R-wave progression, late transition Minimal ST depression, anterolateral leads Compared to ECG 04/22/2018 05:08:17 Ventricular premature complex(es) now present ST (T wave) deviation now present Left posterior fascicular block no longer present Electronically Signed On 05-07-2018 17:02:34 CDT by Sky Bass [email or web address] <ELECTRONICALLY SIGNED> By: Sky Bass MD 05/07/18 1702 0855 0855 Sky Bass MD /EPI
== END | disposition home or self-care (01) ==
LOC: GI 05:59
DX: K57.30 Diverticulosis of large intestine without perforation or abscess without bleeding (principal); K56.699 Other intestinal obstruction unspecified as to partial versus complete obstruction; K64.9 Unspecified hemorrhoids; K29.50 Unspecified chronic gastritis without bleeding; D50.9 Iron deficiency anemia, unspecified; K76.6 Portal hypertension; K31.89 Other diseases of stomach and duodenum; I35.0 Nonrheumatic aortic (valve) stenosis; I48.91 Unspecified atrial fibrillation; I13.0 Hypertensive heart and chronic kidney disease with heart failure and stage 1 through stage 4 chronic kidney disease, or unspecified chronic kidney disease; N18.9 Chronic kidney disease, unspecified; D64.9 Anemia, unspecified; Z88.8 Allergy status to other drugs, medicaments and biological substances; Z98.51 Tubal ligation status; Z99.81 Dependence on supplemental oxygen; Z86.73 Personal history of transient ischemic attack (TIA), and cerebral infarction without residual deficits; Z99.2 Dependence on renal dialysis; Z90.49 Acquired absence of other specified parts of digestive tract; Z79.899 Other long term (current) drug therapy; Z91.041 Radiographic dye allergy status
CPT/HCPCS: 62110; 62900

== ENCOUNTER 2018-07-29 05:43 | Inpatient (IN) | payer OTHER ==
[~2018-07-29] VITALS: Ht 157.5 cm; Wt 97.5 kg
[2018-07-29] VITALS (7 sets, daily range): BP systolic 87–113; BP diastolic 56–84
--- NOTE | 2018-07-29 05:53 | NUR ---
TRIED TWICE TO GET TEMP IN TRIAGE, BUT BOTH TIMES IT TIMED OUT.
[2018-07-29 06:09] LABS: ABSOLUTE NEUTROPHILS 6.2 thou/uL (1.4-8.2); BASOPHILS 0.5 % (0.0-2.0); EOSINOPHILS 0.9 % (0.0-3.0); HEMATOCRIT 39.2 % (37.0-47.0); HEMOGLOBIN 12.3 gm/dL (12.0-15.0); LYMPHOCYTES 19.4 % (24.0-44.0); MCHC 31.5 g/dL (28.0-37.0); MCV 92.1 fL (80.0-100.0); MONOCYTES 8.3 % (1.0-8.0); PLATELET COUNT 229 thou/uL (150-400); POLYS 70.9 % (36.0-66.0); RBC 4.26 mil/uL (4.20-5.00); WBC 8.7 thou/uL (4.0-11.0)
[2018-07-29 06:14] LABS: ANION GAP 20 mmol/L (7-16); BUN 67 mg/dL (7-18); CALCIUM 9.2 mg/dL (8.5-10.1); CHLORIDE 95 mmol/L (98-107); CO2 19 mmol/L (21-32); GLUCOSE 105 mg/dL (74-106); POTASSIUM 4.1 mmol/L (3.5-5.1); SODIUM 134 mmol/L (136-145)
[2018-07-29 06:16] LABS: CREATININE 4.5 mg/dL (0.6-1.0)
[2018-07-29 06:23] LABS: TROPONIN-I <0.06 ng/mL (<0.06)
[2018-07-29 07:26] LABS: URINE CLARITY CLOUDY; URINE COLOR YELLOW; URINE GLUCOSE-RANDOM* NEGATIVE (Negative); URINE KETONES TRACE (Negative); URINE PROTEIN (DIPSTICK) 2+ (Negative); URINE SPECIFIC GRAVITY >= 1.030 (1.005-1.035)
[2018-07-29 07:28] LABS: ICTOTEST (BILI CONFIRMATORY) Negative (Negative); URINE BILIRUBIN NEGATIVE (Negative); URINE BLOOD 2+ (Negative)
[2018-07-29 07:29] LABS: URINE LEUKOCYTES-REFLEX TRACE (Negative); URINE NITRITE-REFLEX NEGATIVE (Negative)
[2018-07-29 07:56] LABS: SQUAMOUS >10 Many /LPF (0-3)
[2018-07-29 07:57] LABS: CASTS None Seen /LPF (None Seen); URINE WBC-REFLEX 0-5 Rare /HPF (0-5)
[2018-07-29 07:58] LABS: BACTERIA-REFLEX 1-9 Few /HPF (None Seen); URINE RBC 0-2 Rare /HPF (0-2)
[2018-07-29 07:59] LABS: AMORPHOUS URATES Moderate /LPF (None Seen)
[2018-07-29] MEDS ORDERED: DEMADEX20 MG PO (08:02)
--- NOTE | 2018-07-29 08:33 | EKG ---
[address] [address] ELECTROCARDIOGRAM REPORT Name: FENG SANABRIA Room #: 211-P ADM IN M.R.#: [id number] Admission: 07/29/18 Attend Phys: Anna Barry MD Discharge: Date of : 62 Report #: [id number] THIS REPORT FOR: //name// [facility] ED Test Date: 2018-07-29 Test Time: 06:13:21 Pat Name: FENG SANABRIA Department: Room: 211 Gender: F Chief Psychologist: Otilio. : 1960 Requested By: Felix Sebastian Order Number: [id number] MD: Mich Fonseca Measurements Intervals [place] Rate: 56 P: [place]: QRS: 124 QRSD: 115 T: 151 QT: 639 QTc: 617 Interpretive Statements Atrial fibrillation Possible lateral infarct, age indeterminate Baseline wander in lead(s) I,III,aVR,aVL,aVF Compared to ECG 05/14/2018 08:09:52 Heart rate has slowed Electronically Signed On 07-29-2018 8:33:26 PAPER TESTER by Mich Fonseca [email or web address] <ELECTRONICALLY SIGNED> By: Mich Fonseca MD, [facility] 07/29/18 0833 0613 2 Mich Fonseca MD, [facility] /EPI
[2018-07-29 09:20] LABS: CHOLESTEROL 115 mg/dL (<200); HDL CHOLESTEROL 39 mg/dL (>40); LDL CHOLESTEROL 42 mg/dL (<100); TC:HDL 2.9 Ratio (Not establshd); TRIGLYCERIDE 172 mg/dL (<150); VLDL 34 mg/dL (<40)
--- NOTE | 2018-07-29 16:49 | 2DMMODE ---
[facility] [place] [address] 2 D/M-MODE ECHOCARDIOGRAM Name: FENG SANABRIA PHU Room #: 211-P ADM IN M.R.#: [id number] Admission: 07/29/18 Attend Phys: Anna Barry MD Discharge: Date of : 62 Date of Service: 07/29/18 1649 Report #: [id number] THIS REPORT FOR: //name// APPROVED REPORT Study performed: 07/29/2018 10:07:00 EXAM: Comprehensive 2D, Doppler, and color-flow Echocardiogram Patient Location: Bedside Room #: 211 Status: routine BSA: 1.76 HR: 47 bpm BP: 104/68 mmHg Rhythm: Atrial Fibrillation/bradycardia Other Information Study Quality: Adequate Indications Short of breath, syncope. Hx: Afib, CHF, NISCM, HTN 2D Dimensions IVSd: 11.00 (7-11mm) LVOT Diam: 19.00 (18-24mm) LVDd: 48.00 mm PWd: 11.00 (7-11mm) Ascending Ao: 30.00 (22-36mm) Aortic Root: 39.00 mm Volumes Left Atrial Volume (Systole) LA ESV Index: 40.00 mL/m2 Aortic Valve AoV Peak Anand.: 2.60 m/s AO Peak Gr.: 28.00 mmHg AO Mean Gr.: 17.00 mmHg LVOT Max V: 0.88 m/s JOANIE (VTI): 1.00 cm2 Mitral Valve MV Decel. Time: 241.00 ms MV E Max Anand.: 1.20 m/s Pulmonary Valve PV Peak Anand.: 0.85 m/s [facility] [address] [place] [address] 2 D/M-MODE ECHOCARDIOGRAM Name: FENG SANABRIA Room #: 211-P ADM IN [facility]#: [id number] Admission: 07/29/18 Attend Phys: Anna Barry MD Discharge: Date of : 62 Date of Service: 07/29/18 1649 Report #: [id number] Tricuspid Valve TR Peak Anand.: 2.30 m/s RAP Estimate: 15.00 mmHg TR Peak Gr.: 23.00 mmHg PA Pressure: 38.00 mmHg Left Ventricle The left ventricle is normal size. There is normal left ventricular wall thickness. Left ventricular systolic function is moderately decreased. LVEF is 35%. This study is not technically sufficient to allow evaluation of the LV diastolic function due to atrial fibrillation. Right Ventricle Right ventricle is dilated. Right ventricle is hypokinetic. Atria Left atrium is moderately dilated. Right atrium is moderately dilated. Aortic Valve Aortic valve is moderately calcified. No aortic regurgitation is present. There is moderate valvular aortic stenosis. Calculated aortic valve area is 1.0 cm2. Mitral Valve Mitral valve leaflets are thickened. Mild mitral annular calcification. Moderate to severe mitral regurgitation Tricuspid Valve The tricuspid valve is normal in structure. Severe tricuspid regurgitation. Estimated PAP is 38mmHg. Pulmonic Valve The pulmonary valve is normal in structure. Mild pulmonic regurgitation. Great Vessels The aortic root is normal in size. The ascending aorta is normal in size. IVC is dilated and collapses <50% with inspiration. Pericardium There is no pericardial effusion. Right pleural effusion noted. [facility] [address] [place] [address] 2 D/M-MODE ECHOCARDIOGRAM Name: FENG SANABRIA Room #: [address] [place] [address] IN M.R.#: [id number] Admission: 07/29/18 Attend Phys: Anna Barry MD Discharge: Date of : 62 Date of Service: 07/29/18 1649 Report #: [id number] <Conclusion> The left ventricle is normal size. Left ventricular systolic function is moderately decreased. LVEF is 35%. This study is not technically sufficient to allow evaluation of the LV diastolic function due to atrial fibrillation. Right ventricle is dilated. Right ventricle is hypokinetic. Left atrium is moderately dilated. Right atrium is moderately dilated. Aortic valve is moderately calcified. There is moderate valvular aortic stenosis. Calculated aortic valve area is 1.0 cm2. Mitral valve leaflets are thickened. Mild mitral annular calcification. Moderate to severe mitral regurgitation Severe tricuspid regurgitation. Estimated PAP is 38mmHg. The aortic root is normal in size. There is no pericardial effusion. Right pleural effusion noted. <ELECTRONICALLY SIGNED> By: Kolby Hebert MD, FACC 07/29/181648 48 48 Kolby Hebert MD, FACC /INF
--- NOTE | 2018-07-29 19:55 | NUR ---
ASSUMED CARE OF PT AT APPROX 0900. PT A&OX4, AND STATES SHE CANNOT GET UP BECAUSE OF WEAKNESS, SOA AND PAIN IN BLE. PT STATES HER BREATHING WAS IMPROVED THIS AFTERNOON. PT HAS ABDOMINAL AND BLE EDEMA. LYMPHEDEMA NURSE ROUNDED ON PT. QUEVEDO PLACE PER [facility] FOR ACCURATE I&O. PT ON 80MG LASIX TID AND THIS WAS CONFIRMED BY DR. ELLIOTT PER TELEPHONE. THEODORA CEBALLOS REQUESTED THAT NOCTURNAL OXYGEN SAT STUDY BEEN DONE AND ORDER WAS ENTERED. PT IS AFIB SHINE ON MONITOR. CARDIOLOGY AWARE OF BRADYCARDIA AND THEODORA CEBALLOS, ORDERED THAT CARDIOLOGY BE NOTIFIED IF: OBSERVED 3 SEC PAUSES OR SUSTAINED HEART RATE IN 30'S OR IF PT SHOWS INCREASED SYMPTOMS IF BRADYCARDIA. PT ON HEPARIN DRIP FOR AFIB. WILL CONT WITH POC.
[2018-07-30 00:32] VITALS: BP 94/72
[2018-07-30 02:21] LABS: HEMATOCRIT 35.7 % (37.0-47.0); MCH 28.6 pg (26.0-34.0); MCHC 30.9 g/dL (28.0-37.0); MCV 92.3 fL (80.0-100.0); RBC 3.86 mil/uL (4.20-5.00); RDW 19.1 % (10.5-14.5); WBC 5.6 thou/uL (4.0-11.0)
[2018-07-30 02:28] LABS: CALCIUM 8.6 mg/dL (8.5-10.1); CREATININE 4.4 mg/dL (0.6-1.0); PHOSPHORUS 5.3 mg/dL (2.5-4.9); POTASSIUM 3.8 mmol/L (3.5-5.1)
--- NOTE | 2018-07-30 03:26 | NUR ---
ASSUMED CARE 1899. VSS. AFIB-SB. ASSESSMENT CHARTED. PT C/O BACK PAIN CONTROLED WITH PRN PAIN MEDS. 4 L NC, NOC OX IN PLACE. QUEVEDO IN PLACE, STRICT I&OS. HEPARIN GTTS, SEE HEPARIN FLOW SHEET. NO SYMPTOMATIC SHINE, OR SUSTAINED RATES. LE BILAT AND ABDDOMINAL EDEMA, PT STATES FEELS BETTER AND LESS TIGHT. TID LASIX PER EMAR. FLUID RESTRICTION IN PLACE. PLAN FOR AM LABS AND APTT REDRAW. WILL CONTINUE TO MONITOR AND WITH POC.
[2018-07-30 04:31] VITALS: BP 104/82
[2018-07-30 07:20] VITALS: BP 97/70
[2018-07-30 11:10] VITALS: BP 93/78
--- NOTE | 2018-07-30 14:22 | NUR ---
Patient admits with fluid overload. She had a long hospitalization in January at [facility] she discharged to an LTAC and home with HH. She has hx of HH with [facility]. 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 She ambulates with no assistive device and lives at home with fiance and all needs on one level. patient reports she has oxygen at home "as needed." She [employer] is [employer]. Noted in computer patients ins termed and she is awaiting a new card. Sp with patient who reports she is awaiting a new card and she does have [employer] insurance. Patient hopeful to dc home with possible HH at dc.
[2018-07-30 15:15] VITALS: BP 96/67
--- NOTE | 2018-07-30 15:43 | NUR ---
ASSUMED PATIENT CARE AT 0700. A/O X4. PLEASANT. TOLERATED ON 3L/NC O2. BLE WRAPED WITH SUKHWINDER AND KERLIX BY OT. NOTED 3+ EDEMA BLE. PATIENT C/O RIGHT CALF PAIN. ENCOURAGED PATIENT CHANGE POSITION. INTERDRY APPLIED TO JEFFRY GROIN. BP AT LOWER SIDE. NO SOB NOTED. WILL KEEP MONITOR. SLOWLY TOWARDS POC GOALS.
--- NOTE | 2018-07-30 17:48 | NUR ---
ASSUMED PATIENT CARE AT 1600 FROM [facility]. PATIENT LYING IN BED, A&O. NC @ 3L. NO COMPLAINTS STATED. TOLERATING DINNER AT THIS TIME.
[2018-07-30 20:20] VITALS: BP 108/76
[2018-07-31 00:11] VITALS: BP 110/80
--- NOTE | 2018-07-31 02:34 | NUR ---
ASSUMED CARE 1900. VSS. ASSESSMENT CHARTED. PT BACK PAIN CONTROLLED WITH PRN PAIN MEDS PER EMAR. PT DENIES ANY OTHER CONCERNS. 2000 ML FL RESTRICTION. FOLLOWING I&OS. IV LASIX PER EMAR. LYMPHODEMA WRAPS IN PLACE. PLAN FOR LABS THIS AM. WILL CONTINUE TO MONITOR AND WITH POC.
[2018-07-31 04:11] LABS: ALBUMIN 2.9 g/dL (3.4-5.0); CALCIUM 8.2 mg/dL (8.5-10.1); CREATININE 4.1 mg/dL (0.6-1.0); MAGNESIUM 1.8 mg/dL (1.8-2.4); POTASSIUM 3.6 mmol/L (3.5-5.1); TOTAL BILIRUBIN 2.8 mg/dL (<0.1-1.0); TOTAL PROTEIN 6.8 g/dL (6.4-8.2)
[2018-07-31 04:15] LABS: HEMATOCRIT 33.5 % (37.0-47.0); HEMOGLOBIN 10.9 gm/dL (12.0-15.0); MCH 29.9 pg (26.0-34.0); MCHC 32.7 g/dL (28.0-37.0); MCV 91.6 fL (80.0-100.0); RBC 3.66 mil/uL (4.20-5.00); RDW 19.7 % (10.5-14.5); WBC 4.6 thou/uL (4.0-11.0)
[2018-07-31 04:35] VITALS: BP 118/81
[2018-07-31 08:18] VITALS: BP 107/79
--- NOTE | 2018-07-31 10:52 | NUR ---
Assess due to high BMI 42-class III extreme obesity. Pt has hx extended hospitalization and required enteral nutrition. Hx etoh, MSOF. Admit with cardiorenal syndrome, elevated LFT, and CHF. Pt aware of diet restrictions. Appetite has been down few days. Refuses any oral supplements, wants to order from menu which was provided. Wts up about 25 lb from prior admit- 01/2018-lymphedema, and fluid changes. Low nutrition risk at this time.
[2018-07-31 12:49] VITALS: BP 120/86
[2018-07-31 14:56] VITALS: BP 121/90
--- NOTE | 2018-07-31 18:02 | NUR ---
ASSESSMENT DOCUMENTED. PT ALERT AND ORIENTED. DENIED HAVING PAIN OR DISCOMFORT. VSS. ON FLUIDS RESTRICTION. CHECKED FREQUENTLY AND NEEDS MET. WILL CONTINUE TO MONITOR.
[2018-07-31 20:23] VITALS: BP 129/86
--- NOTE | 2018-07-31 23:39 | NUR ---
ASSUMED CARE OF PT AT SHIFT CHANGE. ASSESSMENTS CHARTED. MEDS GIVEN PER SEP. VSS, C/O PAIN- MANAGED WITH PO PAIN MEDS. DENIES CHEST PAIN. O2 SATS WNL ON 3L O2 NC. NO S/SX OF CARDIAC OR RESP DISTRESS NOTED, HEAD OF BED ELEVATED TO EASE BREATHING. URINE OUTPUT CONTINUES TO BE ADEQUATE. STILL AWAITING BM FOR STOOL SAMPLE. PT CURRENTLY AWAKE, RESTING IN BED. WILL CONTINUE TO MONITOR AND FOLLOW POC.
[2018-08-01 04:19] LABS: ALBUMIN 2.8 g/dL (3.4-5.0); CALCIUM 8.2 mg/dL (8.5-10.1); PHOSPHORUS 3.9 mg/dL (2.5-4.9); POTASSIUM 3.3 mmol/L (3.5-5.1)
[2018-08-01 04:33] LABS: CREATININE 2.9 mg/dL (0.6-1.0)
[2018-08-01 05:21] VITALS: BP 106/69
[2018-08-01 07:31] VITALS: BP 127/87
--- NOTE | 2018-08-01 09:53 | NUR ---
Met with patient who reports her plan is to dc home tomorrow. 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 She reports her is off tomorrow and will be avail to be with her through the weekend. Discussed HH. Patient has not been very forthcoming with insurance that is stating has terminated. Patient reports Laurence came to see her last evening and she may be eligible for disability and she wants to pursue. She again is not sure if insurance has termed but believes it has. Discussed will attempt to arrange HH but patient away if insurance has termed cannot arrange HH at [place]. Laurence to meet with patient later today. Patient reports she believes in near future she will likely need dialysis, she knows at that time she will be eligible for medicaid. Called [employer] and patients insurance has termed cannot arrange HH. Updated RN
[2018-08-01 11:32] VITALS: BP 115/86
[2018-08-01 15:07] VITALS: BP 117/66
[2018-08-01] MEDS ORDERED: DILTIAZEM 24HR180 M1 PO (16:18)
[2018-08-01] MEDS ORDERED: TENORMIN25 MG PO (16:18)
[2018-08-01] MEDS ORDERED: DEMADEX20 MG PO (16:18)
--- NOTE | 2018-08-01 16:24 | NUR ---
patient has no insurance she plans to discuss with [employer]. SP with [facility] they evaled and are acceptance for short rehab stay. Patient agreeable but now complaining she feels she may be obstructed she has not had BM since sunday. Updated RN. [facility] willing for cindi visits, 1 skilled RN visit, 2 physical therapy visits and 1 Occupational visits. plan [facility] will reeval need for HH and reach out to [facility] again.
--- NOTE | 2018-08-01 17:12 | NUR ---
ASSESSMENT DOCUMENTED. PT ALERT AND ORIENTED. RECEIVED PRN PAIN MED FOR ABD PAIN. VSS. AFIB ON TELI. EVALUATED BY PT/OT. SEEN BY DR. MALONE. ORDERS GIVEN TO DISCHARGE PT TO REHAB [facility]. REPORT CALLED IN TO [facility]. TRANSPORT SET UP FOR 1800.
--- NOTE | 2018-08-02 09:41 | HC ---
[facility] [place] [address] CONSULTATION Name: FENG SANABRIA Room #: 211-P [facility] IN M.R.#: [id number] Admission: 07/29/18 Attend Phys: Anna Barry MD Discharge: 08/01/18 Date of : 62 Report #: [id number] THIS REPORT FOR: //name// CC: Anna Moran REASON FOR PRESENTATION: Shortness of breath and not feeling well. REASON FOR CONSULTATION: Acute kidney injury. HISTORY OF PRESENT ILLNESS: A 58-year-old with extensive past medical history including and not limited to diastolic heart failure, AFib, acute kidney injury in the past requiring hemodialysis after a septic event due to gallbladder related issues back in January of this year. She has been taking diltiazem, atenolol, torsemide; however, in the last few days, she noticed an increase in her lower extremity edema with about 7 pounds gain. She also reported to dyspnea on exertion, orthopnea, not feeling well. She has decreased oral intake. She had some nausea and vomiting. She also realized that her urine output is less than what she used to urinate before. As I have stated, she is being here in the hospital numerous times and she required dialysis back in January after a septic event; however, she was discharged with a creatinine of around 1.4. When she presented to the hospital today, her creatinine was 4.5. She had a mild anion gap acidosis. I am being consulted to manage her acute kidney injury. PAST MEDICAL HISTORY: Extensive and includes the followin. AFib. 2. Hypertension. 3. Aortic stenosis. 4. Respiratory failure. 5. Septic shock and multiorgan failure. 6. Post-laparoscopic cholecystectomy. 7. Tubal ligation. SOCIAL HISTORY: She lives with her . No drug or alcohol abuse. MEDICATIONS: 1. Atenolol. 2. Torsemide. 3. Diltiazem. 4. Potassium. REVIEW OF SYSTEMS: GENERAL: Significant for weakness, but no fever or chills. CARDIOVASCULAR: Significant for orthopnea, dyspnea on exertion, lower extremity edema. PULMONARY: No cough or hemoptysis. [facility] [address] [place] [address] CONSULTATION Name: FENG SANABRIA Room #: 211-P [facility] IN M.R.#: [id number] Admission: 07/29/18 Attend Phys: Anna Barry MD Discharge: 08/01/18 Date of : 62 Report #: [id number] GASTROINTESTINAL: Decreased oral intake. GENITOURINARY: No frequency, no urgency; however, she did have low urine output. MUSCULOSKELETAL: As per the history of present illness. NEUROLOGICAL: Significant for weakness and dizziness. No syncopal episodes. FAMILY HISTORY: Strong family history of diabetes mellitus and hypertension. PHYSICAL EXAMINATION: VITAL SIGNS: Temperature 36.3, pulse rate of 56, respiratory rate is 19, blood pressure is 104/56. HEAD AND NECK: Elevated jugular venous pressure. CHEST: Decreased air entry bilaterally with minimal crackles. CARDIOVASCULAR: Bradycardic with no rub. ABDOMEN: Soft, nontender. LOWER EXTREMITIES: +3 edema. LABORATORY VALUES: Reviewed. White blood cell count 8.7, hemoglobin 12.3. Sodium 134, potassium 4.1, chloride 95, carbon dioxide 19, BUN 67, and creatinine is 4.5. ASSESSMENT, IMPRESSION AND PLAN: 1. Acute kidney injury. 2. Chronic kidney disease. 3. Atrial fibrillation with bradycardia. 4. Heart failure with an ejection fraction of 35%. 5. This seems to be a multifactorial acute kidney injury with fluid overload and what seems to be cardiorenal syndrome given her ejection fraction of 35%. I will initiate diuretics regimen after I obtain my acute kidney injury workup. 6. Fluid and salt restrictions. 7. If intermittent dosing of Lasix is not working, we will initiate Lasix drip. 8. Avoid any morena blocking agents including beta blockers and diltiazem as this is compromising renal perfusion. 9. Monitor urine output. 10. Very low threshold to initiate hemodialysis given her previous dialysis need. <ELECTRONICALLY SIGNED> By: Kelly Muñoz MD 08/02/18 0941 0817 1209 Kelly Muñoz MD /nt
== END 2018-08-01 18:04 | DRG 682 ==
LOC: ER 05:43 → 2N 07:26 → EROBS 07:26 → 2N 08:13
PROVIDERS: Emergency Medicine; Hospitalist; ADMIT Internal Medicine
DX: N17.9 Acute kidney failure, unspecified (principal); I50.23 Acute on chronic systolic (congestive) heart failure; I13.0 Hypertensive heart and chronic kidney disease with heart failure and stage 1 through stage 4 chronic kidney disease, or unspecified chronic kidney disease; I38 Endocarditis, valve unspecified; J98.11 Atelectasis; I42.9 Cardiomyopathy, unspecified; N18.9 Chronic kidney disease, unspecified; E87.70 Fluid overload, unspecified; I48.2 Chronic atrial fibrillation; I44.30 Unspecified atrioventricular block; K74.60 Unspecified cirrhosis of liver; G47.33 Obstructive sleep apnea (adult) (pediatric); E78.5 Hyperlipidemia, unspecified; I87.2 Venous insufficiency (chronic) (peripheral); D64.9 Anemia, unspecified; I35.0 Nonrheumatic aortic (valve) stenosis; E87.6 Hypokalemia; I95.9 Hypotension, unspecified; E03.9 Hypothyroidism, unspecified; G89.29 Other chronic pain; Z90.49 Acquired absence of other specified parts of digestive tract; Z91.041 Radiographic dye allergy status; Z82.49 Family history of ischemic heart disease and other diseases of the circulatory system; Z79.01 Long term (current) use of anticoagulants; Z83.3 Family history of diabetes mellitus; Z83.2 Family history of diseases of the blood and blood-forming organs and certain disorders involving the immune mechanism
CPT/HCPCS: 10081; 10194

== ENCOUNTER 2018-08-01 16:15 | Inpatient (IN) | payer OTHER ==
[~2018-08-01] VITALS: Ht 157.5 cm; Wt 84.8 kg
--- NOTE | ~2018-08-01 | PLAN ---
[facility] [place] [address] REHAB UNIT PLAN OF CARE Name: FENG SANABRIA Room #: 510-P ADM IN M.R.#: [id number] Admission: 08/01/18 Attend Phys: Celio Mcgarry MD Discharge: Date of : 62 Report #: [id number] THIS REPORT FOR: //name// CC: Celio Moran DATE OF SERVICE: 08/03/2018 PROGRESS NOTE/OVERALL PLAN OF CARE SUBJECTIVE: The patient is seen back today in followup. She is on diuretics and some laxatives and is using the bathroom quite a bit. Nursing staff note she is doing quite well with basic transfers on to the commode and would like to have her modified independent if possible. This will be checked out with the rehab therapy team. Please see the orders. She otherwise is in no distress. Last recorded temperature 36.3, pulse 84, respirations 16, blood pressure 108/78. She is working in therapies with dressing upper body standby and lower body is contact guard. In physical therapy, transfers are standby assistance with gait standby assistance 110 feet without a device. She is going up and down 8 steps with min assist. ASSESSMENT: 1. Medical complexity with generalized debilitation. 2. Acute exacerbation of congestive heart failure, mcbqa-tf-fnwzyys. 3. Acute renal insufficiency, superimposed on chronic kidney disease. 4. Cardiorenal syndrome. 5. Recent syncope x 2 at home. 6. Nausea and vomiting, resolved. 7. Hypokalemia. 8. Lymphedema. 9. Gait instability, which has improved. PLAN: The overall plan of care is based on the preadmission screen, post-admission physician evaluation and information garnered from therapy assessments. 1. Estimated length of stay should be fairly short, probably 7-10 days. 2. Medical prognosis is reasonably good. 3. Anticipated interventions includes the interdisciplinary acute inpatient rehabilitation program. 4. Anticipated functional outcomes would be for the patient to become modified independent at least at the walker level or cane level, so she can return back to the home setting. Also to improve her overall cognition as we do have speech therapy involved. 5. Discharge destination would be back home with her fiance. 6. Expected therapy by discipline includes PT, OT, and speech 1 hour per day each 5 days a week throughout the duration of [place] [address] REHAB UNIT PLAN OF CARE Name: FENG SANABRIA Room #: 510-P [facility] IN ..#: [id number] Admission: 08/01/18 Attend Phys: Celio Mcgarry MD Discharge: Date of : 62 Report #: [id number] stay. She does have rawb-wp-nesosvcu cognitive deficits with some moderate memory deficits. We may be able to wean off the speech therapy depending upon how she does in this regard. By: 0814 1827 Celio Mcgarry MD /PMT
[2018-08-01] MEDS ORDERED: TENORMIN25 MG PO (16:18)
[2018-08-01] MEDS ORDERED: DEMADEX20 MG PO (16:18)
[2018-08-01] MEDS ORDERED: DILTIAZEM 24HR180 M1 PO (16:18)
[2018-08-01 21:06] VITALS: BP 89/59
[2018-08-01 22:00] VITALS: BP 98/68
--- NOTE | 2018-08-01 22:40 | NUR ---
PT ADMITTED TO 510 AT 181. PT ALERT AND ORIENTED X 4. RAC SALINE LOCK INTACT AND PATENT. LYPHEDEMA WRAPS INTACT TO BILAT LE'S. 2+ EDEMA IN LE'S. PT VOIDING WITHOUT DIFFICULTY POST QUEVEDO REMOVAL. BLOOD PRESSURE 89/59 AT HS. ATENOLOL HELD. RECHECKED AT 2150 AND IT WAS 98/68. SOME DIFFICULTY GETTING BP READING. PT STATED THEY HAVE HAD TROUBLE WITH HER BP SINCE SHE'S BEEN HERE. PT ORIENTED TO ROOM AND USE OF CALL LIGHT. UNIT HANDBOOK GIVEN TO PT. FALL PRECAUTIONS EXPLAINED TO PT AND CONSENT SIGNED. PT AMB TO BR WITH ASSIST X 1 WITHOUT DIFFICULTY. PT DENIES PAIN OR DISCOMFORT. BED ALARM ON FOR SAFETY. PT CHECKED ON HOURLY ROUNDS.
--- NOTE | 2018-08-02 03:37 | NUR ---
DECLINES WATER AND HAS ICE AT BEDSIDE, REMAINS WELL WITHIN HER FLUID RESTRICTION OF 2000 CC/24 HOURS. VOIDING APPROX ONCE EVERY 2 HOURS. LAST BOWEL MOVEMENT 07/28 AND HAS TAKEN MIRALAX WITH NO RESULTS YET, BUT IS FEELING URGE
[2018-08-02 05:26] LABS: HEMATOCRIT 37.3 % (37.0-47.0); HEMOGLOBIN 11.5 gm/dL (12.0-15.0); MCH 28.6 pg (26.0-34.0); MCHC 30.7 g/dL (28.0-37.0); MCV 93.2 fL (80.0-100.0); RBC 4.01 mil/uL (4.20-5.00)
[2018-08-02 06:01] LABS: ALBUMIN 3.1 g/dL (3.4-5.0); CALCIUM 8.9 mg/dL (8.5-10.1); CREATININE 2.6 mg/dL (0.6-1.0); PHOSPHORUS 3.5 mg/dL (2.5-4.9); POTASSIUM 3.5 mmol/L (3.5-5.1)
[2018-08-02 07:30] VITALS: BP 119/74
--- NOTE | 2018-08-02 10:24 | NUR ---
ASSUMED CARES AT 0700. PT AWAKE, ALERT&ORIENTED*4. C/O MILD RLQ ABDOMINAL PAIN, LAST BM 07/28. BS HYPOACTIVE, ABDOMEN FIRM AND DISTENDED, BISACODYL SUPPOSITORY TO BE ADMINISTERED AFTER THERAPY PER PT'S REQUEST. PT CONTINUES TO HAVE INCREASED URINE OUTPUT, STATED THAT SHE DIDN'T GET MUCH SLEEP R/T TO MULTIPLE BATHROOM BREAKS. CONTINUES TO HAVE EDEMA IN LUE AND BLE. MAINTAINS 2000CC FLUID RESTRICTION. VITALS REMAIN STABLE. PT UP WITH GAITBELT AND SBA, TOLERATED WELL. Q1H VISUAL CHECKS. CALL LIGHT WITHIN REACH. FALL PRECAUTIONS IN PLACE
--- NOTE | 2018-08-02 12:34 | NUR ---
pt up in recliner chair, in room. pt is a & o x 3, able to make her needs know. intro to cm, transition of care, and team meeting. glenda reported " live in house with sig other fanta, 5 steps to enter. no stairs inside. no basement. use oxygen at home as needed 4L. just having to retire early since last 6mon i have been in and out of hospital since fell and passed out x 2 and hit my head at home. sig other works 10 hour days. no rehab or hh in past."/glenda. will cont following as needed for dc needs.
[2018-08-02 13:38] LABS: ALBUMIN 3.2 g/dL (3.4-5.0); DIRECT BILIRUBIN 1.6 mg/dL (<0.1-0.3); TOTAL BILIRUBIN 2.3 mg/dL (<0.1-1.0); TOTAL PROTEIN 7.4 g/dL (6.4-8.2)
[2018-08-02 16:30] VITALS: BP 100/78
[2018-08-02 21:24] VITALS: BP 107/81
[2018-08-02 23:07] LABS: T4 (THYROXINE) 6.4 ug/dL (4.5-12.0)
--- NOTE | 2018-08-03 02:36 | NUR ---
assumed care at approx 1900 evening 08/02. pt alert and oriented x4, appropriate and cooperative. pt with urinary frequency related to diuretics. pt stated she also had bm today x2. pt took hs meds with water tolerating well. pt awake and stated she does not sleep well usually. pt denies need for sleep aid. bed alarm on and call light in reach. will continue to monitor.
[2018-08-03 05:56] VITALS: BP 108/78
[2018-08-03 06:22] LABS: ALBUMIN 3.1 g/dL (3.4-5.0); CALCIUM 8.9 mg/dL (8.5-10.1); CREATININE 1.9 mg/dL (0.6-1.0); PHOSPHORUS 2.5 mg/dL (2.5-4.9); POTASSIUM 3.2 mmol/L (3.5-5.1)
[2018-08-03 07:57] VITALS: BP 109/87
[2018-08-03 15:33] VITALS: BP 101/71
--- NOTE | 2018-08-03 16:29 | NUR ---
ASSUMED CARE AT APPROX 0715. PATIENT A/O X4. DENIES PAIN. BP LOW, PROVIDER NOTIFIED. MEDS ADMINISTERED PER ORDERS. LABS REVIEWED, POTASSIUM REPLACED PER ORDERS, K 3.2 THIS DATE. TRANSFERS X1 ASSIST STANDBY TO BSC, PATIENT NOT YET READY TO BE UP AD KIMBERLY IN ROOM PER PT, CHAIR AND BED ALARMS STILL IN PLACE. AM DOSE OF DIURETIC HELD PER ORDERS. WILL CONTINUE TO MONITOR
[2018-08-03 19:36] VITALS: BP 117/81
--- NOTE | 2018-08-04 03:36 | NUR ---
assumed care at approx 1900 evening 08/03. pt lying in bed with head of bed elevated resting. pt alert and oriented x4, appropriate and cooperative. pt stated she was tired from therapy. pt modified indep up to bsc to void tolerating well. pt appears to be sleeping well with hourly rounding. call light in reach. will continue to monitor.
[2018-08-04 06:30] LABS: ALBUMIN 2.8 g/dL (3.4-5.0); CALCIUM 8.7 mg/dL (8.5-10.1); CREATININE 1.8 mg/dL (0.6-1.0); PHOSPHORUS 2.8 mg/dL (2.5-4.9); POTASSIUM 3.9 mmol/L (3.5-5.1)
[2018-08-04 07:40] VITALS: BP 122/90
--- NOTE | 2018-08-04 11:04 | NUR ---
ASSUMED CARES AT 0700. PT AWAKE, ALERT&ORIENTED*4. VITALS STABLE. C/O MILD LUQ PAIN, DID NOT WANT TO TAKE ANY PAIN PILLS FOR IT. PT HAD VAGINAL BLEED (SMALL AMOUNT) THIS AM, HOSPITALIST NOTIFIED, STITCHER AROUND CONSULTED. PT C/O FATIGUE AND FEELING SLEEPY. ATE ALL HER BREAKFAST AND TOOK A WALK WITH STAFF. CONTINUES TO HAVE LEFT UE AND LEFT LE EDEMA, PULSES 2+/2+. PT CONTINUES TO HAVE FREQUENT URINE OUTPUT. PT REMAINS MODIFIED INDEPENDENT IN ROOM. Q1H VISUAL CHECKS. CALL LIGHT WITHIN REACH. FALL PRECAUTIONS IN PLACE
[2018-08-04 11:20] VITALS: BP 117/71
[2018-08-04 19:34] VITALS: BP 95/63
--- NOTE | 2018-08-05 02:52 | NUR ---
ASSUMED CARE AT START OF SHIFT PT SITTING UP IN BED WATCHING TV NO CONCERNS VOICED AT THIS TIME, DENIED VAGINAL BLEEDING AT THIS TIME. LUNG SOUNDS CLEAR PT ON ROOM AIR. DISCUSSED CURRENT PLAN OF CARE, VERBALIZED UNDERSTANDING AND AGREEABLE. RESTED WELL THROUGHOUT HOURLY ROUNDS, WILL CONTINUE WITH CURRENT PLAN OF CARE AND WILL REPORT CHANGES
[2018-08-05 05:36] LABS: HEMATOCRIT 36.3 % (37.0-47.0); HEMOGLOBIN 11.7 gm/dL (12.0-15.0); MCH 29.6 pg (26.0-34.0); MCHC 32.2 g/dL (28.0-37.0); MCV 92.1 fL (80.0-100.0); RBC 3.94 mil/uL (4.20-5.00); RDW 21.6 % (10.5-14.5); WBC 3.8 thou/uL (4.0-11.0)
[2018-08-05 06:13] LABS: CALCIUM 9.5 mg/dL (8.5-10.1); CREATININE 1.8 mg/dL (0.6-1.0); POTASSIUM 3.6 mmol/L (3.5-5.1); TOTAL BILIRUBIN 1.6 mg/dL (<0.1-1.0); TOTAL PROTEIN 7.3 g/dL (6.4-8.2)
[2018-08-05 08:00] VITALS: BP 107/77
--- NOTE | 2018-08-05 11:00 | NUR ---
ASSUMED PT CARE AT 0700. ASSESSED PT AT 1100. ASSESSMENT IS CHARTED. VITAL SIGNS STABLE. PT AWAKE,ALERT/ORIENTED X4. UP IN CHAIR, PLEASANT AND COOPERATIVE. REPORTS MINIMAL VAGINAL BLEEDING AND DARK STOOLS SHE SUSPECTS ARE BLOODY. AWAITING GPS NAVIGATION INSTALLER CONSULT. DENIES PAIN AT THIS TIME. TRACE EDEMA TO LOWER EXTREMITIES. WILL CONTINUE WITH CURRENT CARE.
--- NOTE | 2018-08-05 13:38 | EKG ---
[address] [address] ELECTROCARDIOGRAM REPORT Name: FENG SANABRIA Room #: 510-P ADM IN M.R.#: [id number] Admission: 08/01/18 Attend Phys: Celio Mcgarry MD Discharge: Date of : 62 Report #: [id number] THIS REPORT FOR: //name// [facility] Test Date: 2018-08-05 Test Time: 09:10:17 Pat Name: FENG SANABRIA Department: Room: 510 Gender: F Research Physicist: SHAHID : 1960 Requested By: Pamela Renteria Order Number: [id number] MD: Sky Bass Measurements Intervals Elida Rate: 113 P: VT: QRS: 117 QRSD: 95 T: QT: 355 QTc: 487 Interpretive Statements Atrial fibrillation Left posterior fascicular block Borderline low voltage, extremity leads Nonspecific T abnormalities, lateral leads Compared to ECG 07/29/2018 06:13:21 Electronically Signed On 08-05-2018 13:38:02 VICE PRESIDENT OF ENGINEERING by Sky Bass [email or web address] <ELECTRONICALLY SIGNED> By: Sky Bass MD 08/05/18 1338 0910 0910 Sky Bass MD /EPI
--- NOTE | 2018-08-05 15:19 | NUR ---
PT DOING WELL THIS SHIFT. PARTICIPATING IN THERAPY AND TOLERATING WELL. PT HAS BEEN UP IN CHAIR MOST OF DAY. NO C/O PAIN. WILL CONTINUE WITH CURRENT PLAN OF CARE.
--- NOTE | 2018-08-05 17:55 | NUR ---
PT UP IN CHAIR FOR DINNER. OBTAINED CONSENT FOR ENDOMETRIAL BIOPSY. PT TO BE TO ROOM 416 TOMORROW AT 1300 FOR PROCEDURE.
[2018-08-05 19:56] VITALS: BP 105/72
--- NOTE | 2018-08-06 01:18 | NUR ---
ASSUMED CARE AT START OF SHIFT . PT UP IN CHAIR /CO ABD PAIN MEDICATION GIVEN, DISCUSSED PLAN OF CARE AND VERBALIZED UNDERSTANDING AND AGREEABLE PT RESTING ELL AFTER PAIN MEDICATION TAKEN. WILL CONITNUE WITH CURRENT PLAN OF CARE.
[2018-08-06 08:26] VITALS: BP 109/72
--- NOTE | 2018-08-06 10:13 | NUR ---
ASSUMED CARE THIS AM, SHIFT ASSESSMENT DONE, BP LOW THIS AM, BP MED HELD. DENIES ANY PAIN, NAUSEA. WORKED WITH PHYSICAL AND OCCUPATIONAL THERAPHY THIS AM. WILL CONTINUE TO ASSESS AND ASSIST WITH ADLs NEEDED.
--- NOTE | 2018-08-06 13:33 | NUR ---
team meeting, recommendation, possible dc 16th home with sig other once cleared by physician. initial medication set up at home. no gait aid. will cont following as needed for dc needs.
--- NOTE | 2018-08-06 15:12 | NUR ---
PATIENT WENT FOR MANAGEMENT PROFESSIONALS EXAM, BIOPSIES OBTANIED. OCCULT BLOOD SAMPLE WAS ALSO SENT TO BLOOD. PATIENT REPORTED DARK TARRY STOOL, HOSPITALIST TEAM INDICATED MIGHT NEED GI CONSULT. REPORTED PAIN AFTER THE PELVIC EXAM, PRN PAIN MEDS GIVEN. WILL CONTINUE TO ASSESS AND ASSIST WITH ADLs NEEDED.
[2018-08-06 19:26] VITALS: BP 97/63
--- NOTE | 2018-08-07 02:31 | NUR ---
UP TO BATHROOM INDEPENDENTLY. CONCERNED ABOUT BLOOD PRESSURE, DECLINED METOPROLOL. OB+ WITH BLACK TARRY STOOLS SINCE SUNDAY, KNOWS THAT DR SHUKLA IS CONCERNED THAT THIS IS KEEPING HER OFF HER XARELTO. REQUESTED MIRALAX AND STATES THAT THE ONLY REASON THEY STOPPED HER PRN MIRALAX WAS DUE TO CONSIDERATION OF A SIMILAR COLON PREP WHICH HAS BEEN DECIDED AGAINST FOR THE TIME BEING BECAUSE OF RECENT COLONOSCOPY. PAIN MED FOR "STOMACH PAIN" SECONDARY TO ENDOMETRIAL BIOPSY, WANTED MIRALAX TO AVOID CONSTIPATION FROM THE PAIN MEDS.
[2018-08-07 04:16] LABS: ALBUMIN 2.8 g/dL (3.4-5.0); CALCIUM 9.2 mg/dL (8.5-10.1); CREATININE 1.9 mg/dL (0.6-1.0); MAGNESIUM 1.8 mg/dL (1.8-2.4); PHOSPHORUS 4.5 mg/dL (2.5-4.9); POTASSIUM 3.5 mmol/L (3.5-5.1)
[2018-08-07 05:39] LABS: HEMATOCRIT 32.5 % (37.0-47.0); HEMOGLOBIN 10.4 gm/dL (12.0-15.0); MCH 29.4 pg (26.0-34.0); MCHC 32.1 g/dL (28.0-37.0); MCV 91.4 fL (80.0-100.0); PLATELET COUNT 165 thou/uL (150-400); RBC 3.55 mil/uL (4.20-5.00); RDW 21.8 % (10.5-14.5)
[2018-08-07 07:30] VITALS: BP 103/70
[2018-08-07 08:37] LABS: ABSOLUTE NEUTROPHILS 1.7 thou/uL (1.4-8.2); ANISOCYTOSIS 1+; ATYPICAL LYMPHS 1 %; OVALOCYTES OCCASIONAL; POIKILOCYTOSIS SLIGHT
--- NOTE | 2018-08-07 10:28 | NUR ---
pt to dc home today not needs, per bedside nurse pt has requested to speak with human arc " brissa jeronimo"/cyndy. lee left message with [employer] [phone], ext [phone] to reach out to pt.
[2018-08-07] MEDS ORDERED: DEMADEX20 MG PO (10:33)
[2018-08-07] MEDS ORDERED: COLACE100 MG PO (10:33)
[2018-08-07] MEDS ORDERED: MIRALAX17 GM PO (10:33)
[2018-08-07] MEDS ORDERED: XARELTO15 MG PO (10:33)
[2018-08-07] MEDS ORDERED: PROTONIX40 M1 PO (10:33)
--- NOTE | 2018-08-07 10:59 | NUR ---
ASSUMED CARES AT 0700. PT ALERT AND ORIENTED*4. VITALS REMAIN STABLE. ATENOLOL HELD THIS AM R/T SBP 103 AND LOW BP'S AT NOC. PT CONCERNED THIS AM REGARDING HER XARELTO, CARDIOLOGY HERE TO SEE PT AND DISCUSSED THE ISSUE. PT CONTINUES TO HAVE RECTAL/ VAGINAL BLEED, GI AND OBSTETRICS/GYNECOLOGY NURSE AWARE, TO FOLLOWUP OUTPATIENT. PT REMAINS MODIFIED INDEPENDENT IN ROOM. CONTINUES TO HAVE FREQUENT URINE OUTPUT. LEFT ARM AND LEG REMAIN EDEMATOUS. PT DISCHARGING TO HOME TODAY, PT TEACHING TO BE COMPLETED. Q1H VISUAL CHECKS. CALL LIGHT WITHIN REACH. FALL PRECAUTIONS IN PLACE
[2018-08-07 11:54] VITALS: BP 103/70
--- NOTE | 2018-08-08 11:23 | H ---
[facility] [place] [address] HISTORY AND PHYSICAL Name: FENG SANABRIA Room #: 510-P [facility] IN M.R.#: [id number] Admission: 08/01/18 Attend Phys: Celio Mcgarry MD Discharge: 08/07/18 Date of : 62 Report #: [id number] THIS REPORT FOR: //name// CC: Celio Moran DATE OF SERVICE: 08/01/2018 HISTORY AND PHYSICAL/POSTADMISSION PHYSICIAN EVALUATION HISTORY OF PRESENT ILLNESS: The patient is a 58-year-old white female who originally presented to the Emergency Department on 07/29/2018 with worsening shortness of breath/dyspnea when lying flat. She was diagnosed with acute exacerbation of CHF and acute renal insufficiency. Creatinine was 4.1 on admission. She had a syncopal episode x 2 at home. Lower extremity edema, nausea with emesis and cardiorenal syndrome. She was evaluated by Cardiology, Nephrology, and the hospitalist service. She was placed on a diuretic. She was noted to have a significant decline in her overall functional mobility and ADLs and was admitted now for acute in-hospital inpatient rehabilitation. PAST MEDICAL HISTORY: Includes hypertension, lung disease, renal disease, venous insufficiency, aortic stenosis, mild to moderate cirrhosis, pneumonia, fluid overload, chronic kidney disease, anemia, obstructive sleep apnea, history of respiratory failure 2015, history of sepsis 01/09/2018 with a short course of hemodialysis. PAST SURGICAL HISTORY: Includes cholecystectomy and tubal ligation. FAMILY HISTORY: Includes heart disease, diabetes. HABITS: No history of tobacco or alcohol abuse. ALLERGIES: CONTRAST DYE, AND ADHESIVE. SOCIAL HISTORY: Lives at home with her fiance, 6 stairs in, no stairs inside. Did not utilize any adaptive device. She was independent with ADLs and shared the IADLs. There is a history of a CVA and stopped driving a while back. REVIEW OF SYSTEMS: No current complaints of chest pain, shortness of breath or abdominal discomfort. PHYSICAL EXAMINATION: GENERAL: The patient is a 58-year-old white female in obvious distress. VITAL SIGNS: Temperature 97.7, pulse 53, respirations 18, blood pressure 89/59. She is alert. HEENT: Appeared to be benign. [facility] [address] [place] [address] HISTORY AND PHYSICAL Name: FENG SANABRIA Room #: [address] [place] [address] IN .R.#: [id number] Admission: 08/01/18 Attend Phys: Celio Mcgarry MD Discharge: 08/07/18 Date of : 62 Report #: [id number] NEUROLOGIC: Cranial nerves are grossly intact. Facies are symmetric. Appears to be a reasonable historian. CHEST: Sounded clear. CARDIOVASCULAR: Regular rate and rhythm. ABDOMEN: Obese, bowel sounds positive, nontender. GENITOURINARY AND RECTAL: Deferred. EXTREMITIES: She has functional range of motion of both upper extremities with strength grade 3+ to 4-/5. Lower extremities functional range of motion with strength grade 3+ to 4-/5. DTRs are decreased. She does have some evidence of neuropathy of her hands. She also has some decreased sensation in distal feet. ASSESSMENT: A 58-year-old white female with the following problem list: 1. Medical complexity with generalized debilitation. 2. Acute exacerbation of congestive heart failure, acute on chronic. 3. Acute renal insufficiency superimposed on chronic kidney disease. 4. Cardiorenal syndrome. 5. Recent syncope x 2 at home. 6. Nausea and vomiting, resolved. 7. Hypokalemia. 8. Lymphedema. 9. Gait instability. PLAN: The patient is admitted for acute in-hospital inpatient rehabilitation. From a postadmission physician evaluation perspective, there are no relevant changes since the preadmission screening. Please see the above review of prior and current medical and functional conditions and comorbidities. Please see the patient's previous and current functional status. As far as risk of complications, the patient has multiple medical comorbidities as noted above. Initial plan of care involves the interdisciplinary acute inpatient rehabilitation program with goal of maximizing her functional independence, so she can hopefully return back to her prior living situation. Measurable functional goals would be for the patient to become modified independent with transfers, mobility and ADLs, so she can hopefully return back to her prior living situation. Prognosis is reasonably good with estimated length of stay probably around 7-14 days pending progress. Potential barriers would include the patient's multiple medical comorbidities and decreased functional status. <ELECTRONICALLY SIGNED> By: Celio Mcgarry MD 08/08/18 1123 0855 1008 Celio Mcgarry MD /nt
--- NOTE | 2018-08-08 14:09 | PATH ---
[facility] [address] [address] PATHOLOGY RPT PROCEDURE Name: ASRAH SANABRIA Room #: 510-P DIS IN M.R.#: [id number] Admission: 08/01/18 Date of : 62 Discharge: 08/07/18 Report #: [id number] Path Case #: [id number] [facility] Accession Number: [id number] . 01 Material submitted: . ENDOMETRIAL BIOPSY . 01 Clinical history: . None provided . 02 Diagnosis: Uterus, endometrial biopsy: - Few fragments of a benign endometrial polyp without atypia or malignancy. - Background endometrium showing cystic changes as well as atrophic changes without hyperplasia or malignancy. . (IUV:mml; 08/07/2018) QLM/08/07/2018 . 02 Electronically signed: . Bridgett Ruffin MD, Pathologist NPI- [id number] . 01 Gross description: . Received in formalin labeled "Sarah Sanabria, endometrial BX," is blood-tinged mucoid material containing small fragments of davies membranous tissue, measuring 3.1 x 1.1 x 0.1 cm in aggregate dimensions. The specimen is filtered and submitted entirely in cassette A1. (TSD; 08/06/2018) TOB/TOB . 02 Pathologist provided ICD-10: N84.0, N85.8 . 02 CPT . 639420 Specimen Comment: A courtesy copy of this report has been sent to Specimen Comment: [phone], , . Specimen Comment: Report sent to ,DR VOGT / DR LITTLE Specimen Comment: A duplicate report has been generated due to demographic updates. Performed at: [address] [id number] MD Lavell Jerome MD Phone: [phone] Performed at: [address] [address] PATHOLOGY RPT PROCEDURE Name: SARAH SANABRIA Room #: 510-P [facility] IN M.R.#: [id number] Admission: 08/01/18 Date of : 62 Discharge: 08/07/18 Report #: [id number] Path Case #: [id number] [address] [id number] MD Bridgett Ruffin MD Phone: [phone]
== END 2018-08-07 17:16 | disposition home or self-care (01) | DRG 987 ==
LOC: ENTRNSPT 08-07 16:15
PROVIDERS: Hospitalist; Nurse Practitioner; Nurse Practitioner Family; ADMIT Physical Medicine & Rehabilitation
PROC: 0UDB8ZX Extraction of Endometrium, Via Natural or Artificial Opening Endoscopic, Diagnostic (ICD-10-PCS; principal; 2018-08-06)
DX: I13.0 Hypertensive heart and chronic kidney disease with heart failure and stage 1 through stage 4 chronic kidney disease, or unspecified chronic kidney disease (principal); I50.23 Acute on chronic systolic (congestive) heart failure; E46 Unspecified protein-calorie malnutrition; N17.9 Acute kidney failure, unspecified; I48.1 Persistent atrial fibrillation; B48.8 Other specified mycoses; N18.9 Chronic kidney disease, unspecified; R53.81 Other malaise; I48.2 Chronic atrial fibrillation; E87.5 Hyperkalemia; I95.9 Hypotension, unspecified; E87.70 Fluid overload, unspecified; E87.6 Hypokalemia; R26.9 Unspecified abnormalities of gait and mobility; G47.33 Obstructive sleep apnea (adult) (pediatric); I35.0 Nonrheumatic aortic (valve) stenosis; R00.1 Bradycardia, unspecified; N93.9 Abnormal uterine and vaginal bleeding, unspecified; D69.6 Thrombocytopenia, unspecified; I42.9 Cardiomyopathy, unspecified; I87.2 Venous insufficiency (chronic) (peripheral); E03.9 Hypothyroidism, unspecified; E78.5 Hyperlipidemia, unspecified; K70.30 Alcoholic cirrhosis of liver without ascites; N95.0 Postmenopausal bleeding; R55 Syncope and collapse; F10.11 Alcohol abuse, in remission; Z87.01 Personal history of pneumonia (recurrent); Z90.49 Acquired absence of other specified parts of digestive tract; Z82.49 Family history of ischemic heart disease and other diseases of the circulatory system; Z83.3 Family history of diabetes mellitus; Z68.34 Body mass index [BMI] 34.0-34.9, adult; Z91.041 Radiographic dye allergy status; Z91.048 Other nonmedicinal substance allergy status; Z80.8 Family history of malignant neoplasm of other organs or systems
CPT/HCPCS: 10112

== ENCOUNTER 2018-09-03 00:43 | Inpatient (IN) | payer OTHER ==
[2018-09-03] VITALS (39 sets, daily range): BP systolic 78–121; BP diastolic 42–92
[~2018-09-03] VITALS: Ht 157.5 cm; Wt 96.3 kg
[~2018-09-03 00:43] MED LIST changes: +ATENOLOL 25MG T25 M1 PO; +COLACE100 MG PO; +DILTIAZEM 24HR180 M2 PO; +PROTONIX40 M1 PO; +TENORMIN25 MG PO; +XARELTO15 MG PO
[2018-09-03 01:07] LABS: BE(vivo) -2.8 mmol/L (-2 to +3); HCO3 19.7 mmol/L (22.0-26.0); PCO2 27.6 mmHg (35.0-45.0); pH 7.472 (7.360-7.450); sO2 97.3 % (92.0-98.0)
[2018-09-03 01:09] LABS: ABSOLUTE NEUTROPHILS 6.9 thou/uL (1.4-8.2); BASOPHILS 0.9 % (0.0-2.0); EOSINOPHILS 0.4 % (0.0-3.0); HEMATOCRIT 37.5 % (37.0-47.0); HEMOGLOBIN 11.8 gm/dL (12.0-15.0); LYMPHOCYTES 19.3 % (24.0-44.0); MCH 28.3 pg (26.0-34.0); MCHC 31.4 g/dL (28.0-37.0); MCV 90.2 fL (80.0-100.0); MONOCYTES 11.4 % (1.0-8.0); PLATELET COUNT 267 thou/uL (150-400); RBC 4.15 mil/uL (4.20-5.00); RDW 20.3 % (10.5-14.5); WBC 10.2 thou/uL (4.0-11.0)
[2018-09-03 01:18] LABS: ANION GAP 17 mmol/L (7-16); BUN 30 mg/dL (7-18); CALCIUM 9.8 mg/dL (8.5-10.1); CHLORIDE 98 mmol/L (98-107); CO2 22 mmol/L (21-32); CREATININE 2.4 mg/dL (0.6-1.0); GLUCOSE 118 mg/dL (74-106); POTASSIUM 3.7 mmol/L (3.5-5.1); SODIUM 137 mmol/L (136-145)
[2018-09-03 01:26] LABS: ALBUMIN 3.8 g/dL (3.4-5.0); LIPASE 187 U/L (73-393); SGOT 28 U/L (15-37); SGPT 21 U/L (30-65); TOTAL BILIRUBIN 3.9 mg/dL (<0.1-1.0); TROPONIN-I <0.06 ng/mL (<0.06)
[2018-09-03 01:27] LABS: TOTAL PROTEIN 8.3 g/dL (6.4-8.2)
[2018-09-03 01:35] LABS: URINE BILIRUBIN 1+ (Negative); URINE BLOOD NEGATIVE (Negative); URINE CLARITY SL CLOUDY; URINE COLOR YELLOW; URINE GLUCOSE-RANDOM* NEGATIVE (Negative); URINE KETONES 1+ (Negative); URINE LEUKOCYTES-REFLEX TRACE (Negative); URINE NITRITE-REFLEX NEGATIVE (Negative); URINE PROTEIN (DIPSTICK) 2+ (Negative); URINE SPECIFIC GRAVITY >= 1.030 (1.005-1.035)
[2018-09-03 01:45] LABS: ICTOTEST (BILI CONFIRMATORY) Positive (Negative)
[2018-09-03 01:54] LABS: APTT 27.9 Seconds (24.5-32.8); INR 1.5; PROTIME 15.6 Seconds (9.3-11.4)
[2018-09-03 01:57] LABS: BACTERIA-REFLEX 1-9 Few /HPF (None Seen); HYALINE CASTS 0-3 Few /LPF (None Seen); MUCUS None Seen strn/LPF (None Seen); SQUAMOUS 0-3 Few /LPF (0-3); URINE RBC None Seen /HPF (0-2); URINE WBC-REFLEX 0-5 Rare /HPF (0-5)
[2018-09-03 01:58] LABS: AMORPHOUS URATES Moderate /LPF (None Seen); CRYSTALS None Seen /LPF (None Seen)
[2018-09-03 04:07] LABS: DIRECT BILIRUBIN 1.7 mg/dL (<0.1-0.3); TOTAL BILIRUBIN 3.5 mg/dL (<0.1-1.0)
[2018-09-03 04:45] LABS: SALICYLATE < 2.8 mg/dL (2.8-20.0)
[2018-09-03 04:48] LABS: AMP/METHAMP Negative (Negative); BARBITURATES Negative (Negative); BENZODIAZEPINES Negative (Negative); COCAINE Negative (Negative); METHADONE Negative (Negative); OPIATES Negative (Negative); PCP Negative (Negative)
[2018-09-03 05:12] LABS: BE(vivo) -8.9 mmol/L (-2 to +3); HCO3 13.9 mmol/L (22.0-26.0); PO2 103.8 mmHg (80.0-100.0); pH 7.407 (7.360-7.450); sO2 97.9 % (92.0-98.0)
[2018-09-03 05:14] LABS: PCO2 22.6 mmHg (35.0-45.0)
--- NOTE | 2018-09-03 06:54 | NUR ---
CONTACTED LIFE [facility]NER AT 0645, AMRITA, MADE AWARE OF TRANSER TO ICU, HE IS COMING IN
[2018-09-03 07:06] LABS: ALBUMIN 3.4 g/dL (3.4-5.0); ANION GAP 20 mmol/L (7-16); BUN 31 mg/dL (7-18); CALCIUM 8.9 mg/dL (8.5-10.1); CHLORIDE 102 mmol/L (98-107); CO2 17 mmol/L (21-32); CREATININE 2.5 mg/dL (0.6-1.0); GLUCOSE 106 mg/dL (74-106); POTASSIUM 3.5 mmol/L (3.5-5.1); SGOT 31 U/L (15-37); SGPT 18 U/L (30-65); SODIUM 139 mmol/L (136-145); TOTAL PROTEIN 7.1 g/dL (6.4-8.2); TROPONIN-I <0.06 ng/mL (<0.06)
--- NOTE | 2018-09-03 08:26 | EKG ---
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 : 1960 Requested By: Mike Godinez Order Number: [id number] MD: Mich Fonseca Measurements Intervals Cassoday Rate: 69 P: MO: QRS: 119 QRSD: 108 T: 144 QT: 529 QTc: 567 Interpretive Statements Atrial fibrillation Right axis deviation Abnrm T, consider ischemia,lateral lds Prolonged QT interval Compared to ECG 08/05/2018 09:10:17 lateral T wave inversion is now present Electronically Signed On 09-03-2018 8:26:25 ADMINISTRATION PROFESSIONAL by Mich Fonseca [email or web address] ��������������������������������������������� <ELECTRONICALLY SIGNED> ���������������������������������������� By: Mich Fonseca MD, [facility] ��������������������������������������������� 09/03/18 0826 0051 0051 Mich Fonseca MD, [facility] /EPI
--- NOTE | 2018-09-03 08:47 | EKG ---
[place] [address] [employer] 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 Machine Operator: TYRON : 1960 Requested By: Mike Godinez Order Number: [id number] MD: Mich Fonseca Measurements Intervals Thomas Rate: 77 P: ID: QRS: 118 QRSD: 85 T: QT: 379 QTc: 429 Interpretive Statements Atrial fibrillation occasional premature ventricular complex Right axis deviation Low voltage, precordial leads Nonspecific ST and T wave abnormality Compared to ECG 08/05/2018 09:10:17 No significant change was found Electronically Signed On 09-03-2018 8:47:28 INTERVENTIONIST by Mich Fonseca [email or web address] ��������������������������������������������� <ELECTRONICALLY SIGNED> ���������������������������������������� By: Mich Fonseca MD, [facility] ��������������������������������������������� 09/03/18 0847 Mich Fonseca MD, [facility] /EPI
[2018-09-03 10:49] LABS: APTT 27.1 Seconds (24.5-32.8); INR 1.8
[2018-09-03 10:52] LABS: PROTIME 18.7 Seconds (9.3-11.4)
[2018-09-03 12:09] LABS: ALBUMIN 3.6 g/dL (3.4-5.0); CALCIUM 8.7 mg/dL (8.5-10.1); CREATININE 2.4 mg/dL (0.6-1.0); PHOSPHORUS 5.1 mg/dL (2.5-4.9); POTASSIUM 3.6 mmol/L (3.5-5.1)
--- NOTE | 2018-09-03 13:09 | 2DMMODE ---
[facility] [address] [place] [address] 2 D/M-MODE ECHOCARDIOGRAM Name: FENG SANABRIA PHU Room #: 237-P ADM IN M.R.#: [id number] ������������� Admission: 09/03/18 ������������� Attend Phys: Brijesh Anderson MD Discharge: ��� ������������� ��� Date of : 62 Date of Service: 09/03/18 1308 �� Report #: [id number] �������� ��������������������������������������������[id number] THIS REPORT FOR: //name// APPROVED REPORT Study performed: 09/03/2018 10:37:08 EXAM: Comprehensive 2D, Doppler, and color-flow Echocardiogram Patient Location: ICU Room #: [facility] Status: routine BSA: 1.91 HR: 77 bpm BP: 112/84 mmHg Rhythm: Atrial Fibrillation Other Information Study Quality: Adequate Indications Congestive Heart Failure Atrial Fibrillation 2D Dimensions RVDd: 51.19 mm IVC: 22.00 mm Tricuspid Valve TR Peak Anand.: 2.26 m/s RAP Estimate: 25.00 mmHg TR Peak Gr.: 20.51 mmHg PA Pressure: 35.00 mmHg Left Ventricle The left ventricle is normal size. There is global hypokinesis of the left ventricle. There is normal left ventricular wall thickness. Left ventricular ejection fraction is moderate to severely decreased. LVEF is 30-35%. This study is not technically sufficient to allow evaluation of the LV diastolic function. Right Ventricle Right ventricle is dilated. Right ventricle is hypokinetic. Atria Left atrium is dilated. Right atrium is dilated. [facility] [address] [place] [address] 2 D/M-MODE ECHOCARDIOGRAM Name: FENG SANABRIA Room #: 237-P ADM IN M.R.#: [id number] ������������� Admission: 09/03/18 ������������� Attend Phys: Brijesh Anderosn MD Discharge: ��� ������������� ��� Date of : 62 Date of Service: 09/03/18 1308 �� Report #: [id number] �������� ��������������������������������������������[id number] Aortic Valve Aortic valve is calcified. Moderately stenotic by recent echocardiogram with Doppler. Mitral Valve Mild mitral annular calcification Moderate mitral regurgitation. No evidence of mitral valve stenosis. Tricuspid Valve The tricuspid valve is normal in structure. There is severe tricuspid regurgitation. Pulmonic Valve The pulmonary valve is normal in structure. Trace pulmonic regurgitation. Great Vessels The aortic root is normal in size. The inferior vena cava is dilated with no inspiratory collapse. Pericardium There is no pericardial effusion. <Conclusion> Abbreviated and limited study Left ventricular ejection fraction is moderate to severely decreased. LVEF is 30-35%. Right ventricle is dilated and hypokinetic Both atria are dilated, especially right atrium. Aortic valve is calcified. Moderately stenotic by recent echocardiogram with Doppler. Mild mitral annular calcification. Moderate mitral regurgitation. There is severe tricuspid regurgitation. There is no pericardial effusion. ��������������������������������������������� <ELECTRONICALLY SIGNED> ���������������������������������������� By: Mich Fonseca MD, [facility] ��������������������������������������������� 09/03/18 1308 07 07 Mich Fonseca MD, [facility] /INF
--- NOTE | 2018-09-03 14:10 | NUR ---
CM ASSESSMENT: CASE OPENED FOR DC PLANNING. CLINICAL INFO REVIEWED. PT KNOWN TO CM FROM MULTIPLE OTHER ADMITS LAST CALENDER YEAR. PT IS SOMULENT AND SOMEWHAT CONFUSED TODAY. INFO PBTAINED FROM PT'S Ceasar CROWE, AT BEDSIDE. PT AND AMRITA LIVE TOGETHER AND PT WAS INDEPENDENT WITH ADLS, USES HOME O2 4 LITERS " NEEDED". PT WITHOUT MEDICAL INSURANCE HAD TO GIVE UP HER JOB R/T TIME AWAY FROM WORK R/T ILLNESS/HOSPITALIZATIONS. [employer] SUBMITTED MEDICAID APPLICATION 08/14/18 AND THIS CONFIRMED WITH SABI FROM [employer] TODAY. ADMIT WITH HIGH LACTIC ACID, HYPOTENSION AND JOANIE. SURGERY FOLLOWING CT IMAGING NOTED INTRAVASCULAR AIR IN RA, RV AND PORTAL VEIN. PT HAD 5N STAY IN JULY 2018 AND WENT HOME WITH [facility].
[2018-09-03 17:46] LABS: ALBUMIN 3.5 g/dL (3.4-5.0); CALCIUM 8.8 mg/dL (8.5-10.1); CREATININE 2.6 mg/dL (0.6-1.0); PHOSPHORUS 5.3 mg/dL (2.5-4.9); POTASSIUM 3.8 mmol/L (3.5-5.1)
--- NOTE | 2018-09-03 21:07 | NUR ---
PT AOX4, FORGET AND DROWSY. FOLLOWS COMMANDS. DENIES PAIN. AFEBRILE. VSS. URINE OUTPUT MONITORED. TALKED TO DR. CHEN, RENAL PANEL COMMUNICATED TO HIM WITH NO NEW ORDERS RECIEVED. NO COMPLAINS PRESENTLY. WILL CONTINUE TO MONITOR PT.
[2018-09-04] VITALS (30 sets, daily range): BP systolic 81–132; BP diastolic 42–106
[2018-09-04 04:43] LABS: ABSOLUTE NEUTROPHILS 5.1 thou/uL (1.4-8.2); BASOPHILS 0.6 % (0.0-2.0); HEMATOCRIT 34.5 % (37.0-47.0); HEMOGLOBIN 10.9 gm/dL (12.0-15.0); LYMPHOCYTES 15.1 % (24.0-44.0); MCH 28.8 pg (26.0-34.0); MCHC 31.5 g/dL (28.0-37.0); MCV 91.2 fL (80.0-100.0); MONOCYTES 7.2 % (1.0-8.0); PLATELET COUNT 180 thou/uL (150-400); POLYS 74.1 % (36.0-66.0); RBC 3.78 mil/uL (4.20-5.00); RDW 20.6 % (10.5-14.5); WBC 6.9 thou/uL (4.0-11.0)
[2018-09-04 05:01] LABS: ALBUMIN 3.1 g/dL (3.4-5.0); CALCIUM 8.6 mg/dL (8.5-10.1); CREATININE 2.4 mg/dL (0.6-1.0); MAGNESIUM 1.9 mg/dL (1.8-2.4); PHOSPHORUS 4.3 mg/dL (2.5-4.9); POTASSIUM 3.2 mmol/L (3.5-5.1); TOTAL BILIRUBIN 2.6 mg/dL (<0.1-1.0); TOTAL PROTEIN 6.6 g/dL (6.4-8.2)
--- NOTE | 2018-09-04 05:05 | NUR ---
PT AOX4, RESTLESS AT TIMES. AFIB ON MONITOR. DENIES PAIN. VSS. AFEBRILE. URINE OUTPUT NOTED. EDUCATED ABOUT NPO STATUS. NO COMPLAINS PRESENTLY. WILL CONTINUE TO MONITOR.
--- NOTE | 2018-09-04 13:45 | HC ---
[facility] [place] [address] CONSULTATION Name: FENG SANABRIA Room #: 237-P ADM IN M.R.#: [id number] Admission: 09/03/18 ������������������ Attend Phys: Brijesh Anderson MD Discharge: ������������������ Date of : 62 Report #: [id number] THIS REPORT FOR: //name// CC: Brijesh Moran INFECTIOUS DISEASES CONSULTATION REASON FOR CONSULTATION: I was asked to evaluate concerning septic shock. HISTORY OF PRESENT ILLNESS: The patient was a 58-year-old with underlying history of hypertension, atrial fibrillation, congestive heart failure and chronic kidney disease, who I evaluated in 01/2018 where she had septic shock and acute cholecystitis. At that time, she was also diagnosed with alcoholic-induced cirrhosis. She underwent cholecystostomy tube placement later in March and she underwent laparoscopic cholecystectomy without complication. She has been in and out of the hospital several times since then. She presents now with 3-day history of nausea, vomiting, diarrhea and progressive shortness of breath. She does use oxygen at home, up to 4 liters per nasal cannula. She denied any fever, chills or sweats. On presentation to the Emergency Room, she was hypotensive. So far, she has received 3 liters of normal saline. Urine output is still low. Mental status has improved and she is now conversant. Her lactate was elevated at 8 on presentation and now is down to 2.4. She has been seen by General Surgery and GI service and also has been seen by Nephrology. She reports a small amount of blood in her stool. She has had no blood in her emesis. Her nausea and vomiting have subsided from her admission this morning. She has had ongoing [id number] abdominal discomfort. This has been intermittent in nature. No p.o. intake so far. She was evaluated with endoscopy several months ago. It was evident that she had hypertensive gastropathy. Also on colonoscopy, she had a stricture at 40 cm proximal to the anus and that was unable to be traversed. She did not follow up for further studies. She has had no travel. There has been no other ill persons that she has been involved with. No recent antibiotics after her gallbladder issues. Denies any fever or chills. REVIEW OF SYSTEMS: Also notes indwelling Morgan catheter was placed. Prior to this, she was having no dysuria, back or flank pain. She has had no sputum production. Denies any headache or pharyngitis symptoms. A 10-point review is otherwise negative. ALLERGIES: IV CONTRAST AND PHENERGAN. MEDICATIONS: As noted on her SEP, now on vancomycin and Zosyn. [address] [address] CONSULTATION Name: FENG SANABRIA Room #: [address] [place] [address] IN M.R.#: [id number] Admission: 09/03/18 ������������������ Attend Phys: Brijesh Anderson MD Discharge: ������������������ Date of : 62 Report #: [id number] PAST MEDICAL HISTORY: Atrial fibrillation, hypertension, aortic stenosis, congestive heart failure, chronic kidney disease, obstructive sleep apnea and thyroid disease. FAMILY HISTORY: Coronary artery disease. SOCIAL HISTORY: Nonsmoker. No further alcohol intake. No HIV risk factors. 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 PHYSICAL EXAMINATION: VITAL SIGNS: Currently afebrile. Blood pressure has improved, 110/81. Heart rate 111. Oxygen saturation on 4 liters was normal. GENERAL: She was awake and conversant. Mild dyspnea with conversation. Obese. SKIN: Without mottling, rash or decubitus. No palpable adenopathy. HEENT: Eyes, without scleral icterus or conjunctivitis. Mouth without mucositis. NECK: Supple. LUNGS: Few crackles in the bases bilaterally. There was some expiratory wheezing on the right mid posterior chest. HEART: Tachycardic and regular. No appreciable murmur, gallop or rub. ABDOMEN: Mildly distended and tender in the left lower quadrant. I did not palpate any masses or hepatosplenomegaly. RECTAL EXAMINATION: Not performed. GENITOURINARY: External genitalia unremarkable, with indwelling Morgan catheter. EXTREMITIES: Without edema, cyanosis or clubbing. NEUROLOGIC: Cranial nerves intact. Strength in her upper and lower extremities was normal. Sensation in upper and lower extremities was normal. LABORATORY DATA: Echocardiogram showed an EF of 30% to 35%. Sodium 139, potassium 3.6, bicarbonate is 17 and creatinine 2.4. Lactate now is 2.4 and lipase 87. Liver function tests showed a bilirubin of 4, AST normal, alkaline phosphatase 93. Urinalysis with protein, ketones and bilirubin. Blood cultures are pending. CT scan of the chest showed basilar atelectasis with air in the right cardiac chambers. She also had mediastinal and hilar adenopathy. CT scan of the abdomen showed air within the portal vein, with no other evidence of abscess, diverticulitis or bowel wall ischemia. IMPRESSION: 1. A 58-year-old with multiple comorbidities presents with GI distress, finding now air in the portal system as well as the right heart. I am suspecting GI source of this air including ischemic bowel. It is noted that the patient had a stricture involving the colon, 40 cm from the anus earlier this year, which has not been further evaluated. 2. Metabolic acidosis, I am suspecting due to GI source and sepsis. 3. Elevated lactate, now improving. [facility] [address] [place] [address] CONSULTATION Name: FENG SANABRIA Room #: 237-P ADM IN M.R.#: [id number] Admission: 09/03/18 ������������������ Attend Phys: Brijesh Anderson MD Discharge: ������������������ Date of : 62 Report #: [id number] 4. Acute kidney injury. 5. Cirrhosis of the liver. 6. Cardiomyopathy. 7. Atrial fibrillation. RECOMMENDATIONS: We will continue broad antibiotic coverage adjusted for her renal insufficiency. Await blood culture results. GI service and General Surgery have been consulted and are following. The patient will need further evaluation of her GI tract once things stabilize. The patient will continue sepsis protocol and ICU support. I have discussed with nursing staff. ��������������������������������������������� <ELECTRONICALLY SIGNED> ���������������������������������������� By: Roderick Fletcher MD ��������������������������������������������� 09/04/18 1345 1814 0025 Roderick Fletcher MD /nt
--- NOTE | 2018-09-04 17:48 | NUR ---
PT TRANSFERRED FROM ICU. PT STABLE AND RESSTING COMFORTABLY, C/O SOA AND "UNABLE TO CATCH BREATH" AFTER A COUPLE OF HOURS, TURNED O2 UP TO 6 AT PT'S REQUEST, HOWEVER 02 SAT WAS 99%. CONTACTED PHYSICIAN WHO ORDERED LORAZAPAM. ADMINISTERED LORAZAPAM, WILL CONTINUE TO MONITOR.
[2018-09-05 03:24] VITALS: BP 97/47
--- NOTE | 2018-09-05 05:20 | NUR ---
ASSUMED CARE AT 1900. PT WAS EARLIER AGITATED AND AXIOUS DEMANDING FOR PAIN MEDICATION. SHE ALSO C/O OF SOB ALTHOUGH SHE HAD O2 AT 6L. PT OTHERWISE ALERT AND ORIENTED. ATIVAN PRN GIVEN FOR ANXIETY. DENIES ANY CHEST PAIN BUT REPORTS NAUSEA- ZOFRAN USED. WILL CONTINUE TO FOLLOW POC.
[2018-09-05 06:01] LABS: HEMATOCRIT 34.6 % (37.0-47.0); HEMOGLOBIN 10.6 gm/dL (12.0-15.0); MCH 28.4 pg (26.0-34.0); MCHC 30.6 g/dL (28.0-37.0); MCV 92.6 fL (80.0-100.0); PLATELET COUNT 239 thou/uL (150-400); RBC 3.74 mil/uL (4.20-5.00); RDW 20.9 % (10.5-14.5); WBC 7.5 thou/uL (4.0-11.0)
[2018-09-05 06:02] LABS: INR 1.5; PROTIME 15.8 Seconds (9.3-11.4)
[2018-09-05 06:12] LABS: ALBUMIN 3.4 g/dL (3.4-5.0); CALCIUM 9.1 mg/dL (8.5-10.1); CREATININE 2.4 mg/dL (0.6-1.0); PHOSPHORUS 4.4 mg/dL (2.5-4.9); POTASSIUM 4.3 mmol/L (3.5-5.1)
[2018-09-05 06:14] LABS: ALBUMIN 3.3 g/dL (3.4-5.0); DIRECT BILIRUBIN 1.1 mg/dL (<0.1-0.3); TOTAL BILIRUBIN 1.8 mg/dL (<0.1-1.0); TOTAL PROTEIN 7.3 g/dL (6.4-8.2)
[2018-09-05 06:43] LABS: ABSOLUTE NEUTROPHILS 5.2 thou/uL (1.4-8.2); ANISOCYTOSIS 2+; POLYCHROMASIA 1+
[2018-09-05 06:44] LABS: PLATELET ESTIMATE NORMAL
--- NOTE | 2018-09-05 12:37 | NUR ---
Assumed pt care at 0645. pt was resting but a/ox4. she seems very anxious. after speaking with hospitalist put pt on CWIA protocol. will continue to monitor.
[2018-09-05 16:07] VITALS: BP 98/60
[2018-09-05 19:59] VITALS: BP 123/93
[2018-09-06 04:52] VITALS: BP 96/77
[2018-09-06 05:39] LABS: HEMATOCRIT 33.5 % (37.0-47.0); HEMOGLOBIN 10.3 gm/dL (12.0-15.0); MCH 28.3 pg (26.0-34.0); MCHC 30.7 g/dL (28.0-37.0); MCV 92.2 fL (80.0-100.0); RBC 3.63 mil/uL (4.20-5.00); RDW 20.7 % (10.5-14.5)
[2018-09-06 05:57] LABS: CALCIUM 8.7 mg/dL (8.5-10.1); CREATININE 2.1 mg/dL (0.6-1.0); PHOSPHORUS 4.5 mg/dL (2.5-4.9); POTASSIUM 3.3 mmol/L (3.5-5.1)
--- NOTE | 2018-09-06 06:00 | NUR ---
Pt. rested quietly at intervals during the night when checked on during frequent rounds. Ativan given ivp one time (see emar) for elevated ciwal score with some relief of restlessness. Pain med given for c/o headache and antinausea also given (see emar) with some relief noted. Bed alarm is on.
[2018-09-06 06:02] LABS: DIRECT BILIRUBIN 0.8 mg/dL (<0.1-0.3); TOTAL BILIRUBIN 1.4 mg/dL (<0.1-1.0); TOTAL PROTEIN 6.6 g/dL (6.4-8.2)
[2018-09-06 09:09] VITALS: BP 112/84
--- NOTE | 2018-09-06 09:22 | HC ---
[facility] [place] [address] CONSULTATION Name: FENG SANABRIA Room #: 450- ADM IN M.R.#: [id number] Admission: 09/03/18 ������������������ Attend Phys: Brijesh Anderson MD Discharge: ������������������ Date of : 62 Report #: [id number] THIS REPORT FOR: //name// CC: Brijesh Moran REASON FOR CONSULTATION: Acute kidney injury. HISTORY OF PRESENT ILLNESS: The patient is known to our service with chronic kidney disease, congestive heart failure, decreased left ventricular ejection fraction, numerous admissions with volume overload, is admitted with nausea, vomiting, lactic acidosis, hypotension and decreased urinary output with creatinine more or less at baseline. According to her fiance, she has not had any recent procedures, GI procedures or other. We are checking with the GI service about that. She had nausea and vomiting 2 days before admission, this persisted, became increasingly short winded and ill and came to the Emergency Room. She had syncopal episodes as well. PAST MEDICAL HISTORY: She has had congestive heart failure, atrial fibrillation, aortic stenosis. She has had acute kidney injury from a septic episode last summer and she did require some dialysis. She had septic shock from a septic gallbladder at that time, did have a cholecystectomy in April. She has had previous CVA with some left-sided weakness. HOME MEDICATIONS: Apparently include just atenolol, torsemide and diltiazem, had previously been on Xarelto. ALLERGIES: Reportedly to CONTRAST DYE. SOCIAL HISTORY: Occasional alcohol. No cigarettes. REVIEW OF SYSTEMS: Cannot be taken. She is unresponsive and in the ICU. PHYSICAL EXAMINATION: GENERAL: This is an ill-appearing patient, seen in ICU, cannot get her to respond. SKIN: Unremarkable. SKELETAL: Shows her to be somewhat obese. No edema. HEENT: Extraocular movements not tested. Nasal cannula oxygen in place. NECK: Supple. CHEST: Shows diminished breath sounds at the bases. HEART: Irregular. ABDOMEN: Somewhat firm. EXTREMITIES: Show no edema. Pulses were okay. LABORATORY DATA: Hemoglobin 11.8, platelets 267, white count 10.2. Sodium 139, potassium 3.5, chloride 102, bicarbonate 17, BUN 31, creatinine 2.5. [facility] [address] [place] [address] CONSULTATION Name: FENG SANABRIA Room #: [address] [place] [address] IN .R.#: [id number] Admission: 09/03/18 ������������������ Attend Phys: Brijesh Anderson MD Discharge: ������������������ Date of : 62 Report #: [id number] ASSESSMENT AND PLAN: Acute kidney injury. She has apparent septic shock with lactic acidosis. She has portal venous air and as far as I can tell, has not had any recent procedures, this would indicate then that she has some sort of abdominal catastrophe which she is unlikely to survive. We are checking with the GI service to be sure that she has not had any recent procedures such as ERCP, liver biopsy, etc. and that will certainly help us figure out what is going on here. In the meantime, she has been given 4-5 liters of IV fluids. She does have a maintained blood pressure, but she is not making any urine, she has chronic kidney disease as well and likely if she can survive, would require renal replacement therapy, I anticipate. GI service will be involved. Surgery will be involved. ID will be involved. We will see what we can do. ��������������������������������������������� <ELECTRONICALLY SIGNED> ���������������������������������������� By: Kolby Butler MD ��������������������������������������������� 09/06/18 0922 0959 [id number] Kolby Butler MD /nt
--- NOTE | 2018-09-06 09:46 | NUR ---
A/OX4, DROWSY, PAIN MANAGED WITH MEDICATIONSN, CURRENTLY SCORES A 3 ON CIWA WITH A DULL HEADACHE, QUEVEDO IN PATENT, FLUIDS ENCOURAGED. CONTINUES ON ANTIBIOTICS. FALL PRECAUTIONS IN PLACE WITH ASSIST X1, REQUIRES REMINDER TO CALL FOR ASSISTANCE. CALL LIGHT IN REACH.
--- NOTE | 2018-09-06 12:19 | NUR ---
CARE TEAM INDICATED THAT PT WILL LIKELY BE HERE OVER THE WEEKEND. IF PT IS TO DISCHRGE HOME OVER THE WEEKEND AND NEED HOME HEALTH NURSING. REFERRAL CAN BE SENT TO [facility] AT . TO FOLLOW INDICATED WITH DC PLANNING.
[2018-09-06 15:45] VITALS: BP 94/65
[2018-09-06 20:00] VITALS: BP 125/82
[2018-09-07 04:00] VITALS: BP 124/80
[2018-09-07 05:20] LABS: ALBUMIN 3.5 g/dL (3.4-5.0); CALCIUM 9.2 mg/dL (8.5-10.1); CREATININE 2.2 mg/dL (0.6-1.0); PHOSPHORUS 4.7 mg/dL (2.5-4.9); POTASSIUM 3.8 mmol/L (3.5-5.1)
--- NOTE | 2018-09-07 06:00 | NUR ---
Pt. has been up most of the night as she has been worried about her . She explains that he will not answer his phone. Gave pt. a variety of suggestions like call a neighbor or the police to have them check on him, but she did not want to do that. Prn ativan given for anxiety (see emar) with little relief noted. Bed alarm is on.
[2018-09-07 07:55] VITALS: BP 122/90
--- NOTE | 2018-09-07 15:22 | NUR ---
A/OX4, DROWSY AWAKENS EASILY, SOB CONTINUES ON 4L NC. UP WITH PT FOR LIMITED TIME. AFIB ON TELL MAINTAINS WITH HR IN THE UPPER 90'S TO 115. MESSY WITH MEALS AND DRINKS MAY BE RELATED TO FALLING ASLEEP DURING MEALS. SAE REMOVED MONITORING FOR URIN OUTPUT. NO BM AT THIS TIME. BEING FOLLOWED BY DR CHEN, AND DR BOTELLO. ON FALL PRECAUTIONS, AND CIWA Q4HR. PT DOES NOT USE CALL LIGHT APPROPRIATELY. STAFF TO ANTICIPATE PT NEEDS. CALL LIGHT IN REACH
[2018-09-07 15:26] VITALS: BP 113/85
[2018-09-07 19:30] VITALS: BP 112/55
[2018-09-08 04:15] VITALS: BP 107/70
--- NOTE | 2018-09-08 04:44 | NUR ---
Pt. rested quietly at intervals during the night when checked on during frequent rounds. She c/o a headache and was given po pain meds (see emar) with some relief noted. Bed alarm is on.
[2018-09-08 06:20] LABS: ABSOLUTE NEUTROPHILS 3.3 thou/uL (1.4-8.2); BASOPHILS 0.7 % (0.0-2.0); EOSINOPHILS 3.8 % (0.0-3.0); HEMATOCRIT 33.6 % (37.0-47.0); HEMOGLOBIN 10.4 gm/dL (12.0-15.0); LYMPHOCYTES 22.6 % (24.0-44.0); MCH 28.2 pg (26.0-34.0); MCHC 30.8 g/dL (28.0-37.0); MCV 91.7 fL (80.0-100.0); MONOCYTES 11.4 % (1.0-8.0); PLATELET COUNT 203 thou/uL (150-400); POLYS 61.5 % (36.0-66.0); RBC 3.67 mil/uL (4.20-5.00); WBC 5.4 thou/uL (4.0-11.0)
[2018-09-08 06:35] LABS: ALBUMIN 3.2 g/dL (3.4-5.0); CALCIUM 9.2 mg/dL (8.5-10.1); CREATININE 1.8 mg/dL (0.6-1.0); PHOSPHORUS 3.8 mg/dL (2.5-4.9); POTASSIUM 3.4 mmol/L (3.5-5.1); TOTAL BILIRUBIN 1.4 mg/dL (<0.1-1.0); TOTAL PROTEIN 6.8 g/dL (6.4-8.2)
[2018-09-08 07:25] VITALS: BP 138/83
[2018-09-08 13:40] VITALS: BP 127/72
--- NOTE | 2018-09-08 14:35 | NUR ---
TOWARDS POC PT A/O X4, VSS, AFEBRILE. DENIES PAIN. NO SOA, NO NV. NO CONCERNS VOICED AT THIS TIME WILL CONTINUE TO MONITOR.
[2018-09-08 19:09] VITALS: BP 114/77
[2018-09-09] VITALS (8 sets, daily range): BP systolic 108–132; BP diastolic 73–97
[2018-09-09 05:55] LABS: ALBUMIN 3.3 g/dL (3.4-5.0); CALCIUM 9.5 mg/dL (8.5-10.1); CREATININE 1.6 mg/dL (0.6-1.0); PHOSPHORUS 3.3 mg/dL (2.5-4.9); POTASSIUM 3.1 mmol/L (3.5-5.1)
--- NOTE | 2018-09-09 15:29 | NUR ---
CARE TEAM INDICATED THAT PT WAS TO BE HAVING A CT OF THE HEAD THIS DAY. CM TO FOLLOW INDICATED WITH DC PLANNING.
--- NOTE | 2018-09-09 18:29 | NUR ---
PT ALERT AND ORIENTED TIMES FOUR, PT VERY TEARFUL ON AND OFF THIS SHIFT. VSS, 100%4L. PT C/O HEADACHE THIS MORNING PRN PAIN MEDICATIONS GIVEN WITH GOOD RELEIF. PT UP TO CHAIR FOR SOME PART OF THE DAY. PT TOLERATES MEDS AND MEALS. PT AT BEDSIDE THIS AFTERNOON. PT SLOWLY PROGRESSING TOWRADS POC GOALS.
[2018-09-10 03:25] VITALS: BP 117/85
--- NOTE | 2018-09-10 04:01 | NUR ---
Pt. rested quietly at intervals during the night when checked on during frequent rounds. She did c/o a headache and was given po pain meds (see emar) with relief noted. Up to the bathroom with assist of one. Bed alarm is on.
[2018-09-10 08:48] VITALS: BP 106/81
[2018-09-10 13:52] LABS: ALBUMIN 3.3 g/dL (3.4-5.0); DIRECT BILIRUBIN 0.6 mg/dL (<0.1-0.3); TOTAL BILIRUBIN 1.1 mg/dL (<0.1-1.0); TOTAL PROTEIN 7.5 g/dL (6.4-8.2)
[2018-09-10] MEDS ORDERED: CEFDINIR300 MG PO (15:08)
[2018-09-10] MEDS ORDERED: METRONIDAZOLE500 M4 PO (15:08)
[2018-09-10] MEDS ORDERED: ATENOLOL 50MG T50 MG PO (15:08)
[2018-09-10] MEDS ORDERED: XIFAXAN550 MG PO (15:08)
[2018-09-10] MEDS ORDERED: PRENATAL COMPL1 EACH PO (15:09)
[2018-09-10] MEDS ORDERED: PROTONIX40 M1 PO (15:09)
[2018-09-10] MEDS ORDERED: TORSEMIDE20 MG PO (15:09)
[2018-09-10 15:25] VITALS: BP 100/71
--- NOTE | 2018-09-10 15:29 | NUR ---
CARE TEAM INDICATED THAT PT IS MEDICALLY STABLE TO DISCHARGE HOME THIS DAY. PT IS MEDICAID PENDING AND WE AREN'T ABLE TO ORDER A FWW FOR HOME USE THROUGH A DME PROVIDER CM PROVIDED INFO ON WHERE ONE COULD BE AQUIRED [facility]RIFT STORE. CARE TEAM IS INDICATING HOME WITH NO NEEDS. NO OTHER CM INTERVENTION INDICATED AT THIS TIME. CASE CLOSED.
[2018-09-10 15:43] VITALS: BP 100/71
--- NOTE | 2018-09-10 16:23 | NUR ---
DIS PT IS FOR DC TODAY, IV AND HEART MONITOR DC'D. DC PACKET AND MED SCRIPTS PROVIDED. SANJUANA PROVIDED BY AURA.
[2018-09-11] MEDS ORDERED: LACTULOSE20 GM/30 M PO (09:56)
--- NOTE | 2018-09-11 20:23 | NUR ---
Opened the chart so that l can fill in a report.
--- NOTE | 2018-09-12 10:12 | NUR ---
received voice message from glenda stated " have question if someone could call me @ [phone]"/glenda. jesus spoke with glenda via phone call "need to speak with brissa with [employer] and already called [employer]. education that could give her message and or she could call [phone] and speak with [employer]. pt hung up on cm while providing human [employer] number.
== END 2018-09-10 17:14 | disposition home or self-care (01) | DRG 871 ==
LOC: ER 00:43 → ICU 03:03 → EROBS 03:03 → ICU 06:55 → 4W 09-04 14:32 → ENTRNSPT 09-10 16:37 → 4W 09-10 17:14
PROVIDERS: Emergency Medicine; Internal Medicine Gastroenterology; Internal Medicine Nephrology; Nurse Practitioner; Surgery; ADMIT Hospitalist
DX: A41.9 Sepsis, unspecified organism (principal); R65.21 Severe sepsis with septic shock; J96.01 Acute respiratory failure with hypoxia; N17.9 Acute kidney failure, unspecified; E87.3 Alkalosis; I50.22 Chronic systolic (congestive) heart failure; I13.0 Hypertensive heart and chronic kidney disease with heart failure and stage 1 through stage 4 chronic kidney disease, or unspecified chronic kidney disease; I42.9 Cardiomyopathy, unspecified; E87.2 Acidosis; I48.1 Persistent atrial fibrillation; D68.59 Other primary thrombophilia; I25.10 Atherosclerotic heart disease of native coronary artery without angina pectoris; N18.3 Chronic kidney disease, stage 3 (moderate); E87.6 Hypokalemia; G47.33 Obstructive sleep apnea (adult) (pediatric); I35.0 Nonrheumatic aortic (valve) stenosis; K72.90 Hepatic failure, unspecified without coma; D64.9 Anemia, unspecified; K70.9 Alcoholic liver disease, unspecified; K74.60 Unspecified cirrhosis of liver; E03.9 Hypothyroidism, unspecified; I48.2 Chronic atrial fibrillation; R59.0 Localized enlarged lymph nodes; I45.81 Long QT syndrome; Z90.49 Acquired absence of other specified parts of digestive tract; Z86.73 Personal history of transient ischemic attack (TIA), and cerebral infarction without residual deficits; Z91.14 Patient's other noncompliance with medication regimen; Z79.899 Other long term (current) drug therapy; Z88.8 Allergy status to other drugs, medicaments and biological substances; Z91.041 Radiographic dye allergy status; Z82.49 Family history of ischemic heart disease and other diseases of the circulatory system; Z80.8 Family history of malignant neoplasm of other organs or systems; Z83.3 Family history of diabetes mellitus
CPT/HCPCS: 10045; 10078

== ENCOUNTER 2018-09-16 03:00 | Inpatient (IN) | payer OTHER ==
[~2018-09-16] VITALS: Ht 157.5 cm; Wt 96.1 kg
[2018-09-16] VITALS (50 sets, daily range): BP systolic 92–152; BP diastolic 41–122
[~2018-09-16 03:00] MED LIST changes: +CEFDINIR300 MG PO; +LACTULOSE20 GM/30 M PO; +METRONIDAZOLE500 M4 PO; +PRENATAL COMPL1 EACH PO; +XIFAXAN550 MG PO
[2018-09-16 03:40] LABS: ANION GAP 24 mmol/L (7-16); BUN 31 mg/dL (7-18); CALCIUM 9.6 mg/dL (8.5-10.1); CHLORIDE 102 mmol/L (98-107); CO2 16 mmol/L (21-32); CREATININE 1.7 mg/dL (0.6-1.0); GLUCOSE 101 mg/dL (74-106); POTASSIUM 3.7 mmol/L (3.5-5.1); SODIUM 142 mmol/L (136-145)
[2018-09-16 03:46] LABS: APTT 28.3 Seconds (24.5-32.8); INR 1.3; PROTIME 13.1 Seconds (9.3-11.4)
[2018-09-16 03:48] LABS: ABSOLUTE NEUTROPHILS 6.1 thou/uL (1.4-8.2); BASOPHILS 0.8 % (0.0-2.0); HEMATOCRIT 36.5 % (37.0-47.0); HEMOGLOBIN 11.3 gm/dL (12.0-15.0); LYMPHOCYTES 21.7 % (24.0-44.0); MCH 27.8 pg (26.0-34.0); MCHC 30.9 g/dL (28.0-37.0); MCV 89.9 fL (80.0-100.0); MONOCYTES 9.9 % (1.0-8.0); PLATELET COUNT 307 thou/uL (150-400); POLYS 67.6 % (36.0-66.0); RBC 4.06 mil/uL (4.20-5.00); RDW 21.3 % (10.5-14.5)
[2018-09-16 03:50] LABS: TROPONIN-I <0.06 ng/mL (<0.06)
[2018-09-16 04:09] LABS: URINE BILIRUBIN NEGATIVE (Negative); URINE BLOOD NEGATIVE (Negative); URINE COLOR YELLOW; URINE GLUCOSE-RANDOM* NEGATIVE (Negative); URINE KETONES NEGATIVE (Negative); URINE LEUKOCYTES-REFLEX NEGATIVE (Negative); URINE NITRITE-REFLEX NEGATIVE (Negative); URINE PROTEIN (DIPSTICK) 2+ (Negative); URINE SPECIFIC GRAVITY >= 1.030 (1.005-1.035); URINE UROBILINOGEN 0.2 E.U./dl (0.2-1.0)
[2018-09-16 04:10] LABS: URINE CLARITY SL.CLOUDY
[2018-09-16 04:17] LABS: MUCUS 0-3 Light strn/LPF (None Seen); SQUAMOUS 0-3 Few /LPF (0-3)
[2018-09-16 04:18] LABS: AMORPHOUS URATES Many /LPF (None Seen); BACTERIA-REFLEX None Seen /HPF (None Seen); CRYSTALS None Seen /LPF (None Seen); HYALINE CASTS 4-10 Moderate /LPF (None Seen); URINE RBC None Seen /HPF (0-2); URINE WBC-REFLEX None Seen /HPF (0-5)
--- NOTE | 2018-09-16 09:22 | EKG ---
[place] [address] [facility] [place] [address] ELECTROCARDIOGRAM REPORT Name: FENG SANABRIA Room #: 244-P ADM IN M.R.#: [id number] ������������������ Admission: 09/16/18 ������������������ Attend Phys: Jaime Beck MD Discharge: ������������������ Date of : 62 Report #: [id number] ����������������������������������������������������������������� [id number] THIS REPORT FOR: //name// [facility] ED Test Date: 2018-09-16 Test Time: 03:08:07 Pat Name: FENG SANABRIA Department: Room: 244 Gender: F Cook Chill Technician: paco : 1960 Requested By: Felix Sebastian Order Number: [id number] MD: Mich Fonseca Measurements Intervals [place] Rate: 185 P: OR: QRS: 113 QRSD: 85 T: 16 QT: 279 QTc: 490 Interpretive Statements Atrial fibrillation with rapid V-rate Left posterior fascicular block Borderline low voltage, extremity leads Abnormal R-wave progression, late transition Compared to ECG 09/03/2018 07:25:16 Heart rate has increased Ventricular premature complex(es) no longer present Electronically Signed On 09-16-2018 9:22:04 MANAGER [employer] by Mich Fonseca [email or web address] ��������������������������������������������� <ELECTRONICALLY SIGNED> ���������������������������������������� By: Mich Fonseca MD, [facility] ��������������������������������������������� 09/16/18 0922 7 7 Mich Fonseca MD, [facility] /EPI
--- NOTE | 2018-09-16 12:45 | NUR ---
CM ASSESSMENT: CASE OPENED FOR DC PLANNING. CLINICAL INFO REVIEWED. PT KNOWN TO CM FROM MULTIPLE PREVIOUS ADMITS. ADMIT WITH AFIB RVR AND SHOWING SIGNS OF ETOH WITHDRAWAL. MET WITH PT WHO IS ALERT AND ORIETNED X4, AND HER S.O. AMRITA AT BEDSIDE. PT ADMITS TO DRINKING, STATING, "LAST SUNDAY WAS ". PT WAS VAUGUE WHEN ASKED IF SHE FELT ETOH WAS A PROBLEM FOR HER AND DECLINED RESOURCES FOR TREATMENT. PT HAS HOME O2 PRN AND WAS ISSUED A WALKER BY [facility] AT LAST DISCHARGE. PT AND S.O. LIVE TOGETHER. PT IS NOT WORKING R/T ILLNESS FOR MANY MONTHS. NOW WITHOUT MEDICAL INSURANCE AND HAS MEDICAID APPLICATION SUBMITTED 08/14/18 AND PT STATES SHE FOLLOWS UP WITH SABI FROM [email or web address]. CURRENTLY IN SOFT WRIST RESTRAINTS R/T IMPULSIVITY. DC PLAN TO RETURN HOME WITH S.O.
[2018-09-16 13:03] LABS: ALBUMIN 3.5 g/dL (3.4-5.0); DIRECT BILIRUBIN 0.7 mg/dL (<0.1-0.3); TOTAL BILIRUBIN 1.4 mg/dL (<0.1-1.0); TOTAL PROTEIN 7.9 g/dL (6.4-8.2)
--- NOTE | 2018-09-16 18:11 | NUR ---
ADMIT NOTE PT ALERT AND ORIENTED AT BEGINING OF SHIFT. GOT MORE AGGITATED DURING SHIFT AT TIMES CIWA WAS 22. PT PLACED IN RESTRAINTS AND SAFETY AND DIGNITY CHECKS WERE PERFORMED. PT PARTNER CAME AND VISITED PT BECAME MORE ALERT AT THIS TIME AND WAS COMPLIENT WITH CARE. PT TURNS SELF IN BED. PT CLEANED UP. ASSESSMENTS AND VITALS CHARTED. PT HAD COMPLAINTS OF MUSTAFA. BUT HAD NO COMPLAINTS OF SOA, CHEST PAIN OR NV. PT WILL CONTINUE TO BE MONITORED TILL THE END OF THE SHIFT.
[2018-09-17] VITALS (26 sets, daily range): BP systolic 82–149; BP diastolic 57–121
[2018-09-17 04:33] LABS: CALCIUM 8.8 mg/dL (8.5-10.1); CREATININE 1.9 mg/dL (0.6-1.0); POTASSIUM 3.6 mmol/L (3.5-5.1)
[2018-09-17 04:38] LABS: HEMATOCRIT 31.1 % (37.0-47.0); MCH 28.5 pg (26.0-34.0); MCV 89.1 fL (80.0-100.0); RBC 3.49 mil/uL (4.20-5.00); RDW 20.7 % (10.5-14.5); WBC 5.7 thou/uL (4.0-11.0)
--- NOTE | 2018-09-17 06:11 | NUR ---
ASSUMED CARE OF PT AT 1900. PT ALERT AND ORIENTED TO PERSON, PLACE AND SITUATION. CIWA MUCH IMPROVED THROUGH OUT SHIFT. A FIB ON THE MONITOR. PT REMAINS ON CARDIZEM GTT. TITRATED PER PARAMETERS. LOPRESSOR PRN GIVEN WITH IMPROVEMENT IN HR. MARGINAL UO. PT HAVING X1 LOOSE BROWN BM. NO NEW SKIN ISSUES NOTED. WILL CONTINUE TO MONITOR PT. PT MAKING PROGRESS TOWARDS GOALS.
--- NOTE | 2018-09-17 18:01 | NUR ---
END OF SHIFT NOTE. PT OOB TODAY, INCONTINENT OF STOOL. WEANED OFF CARDIZEM GTT. REMAINS ON 6L NASAL CANNULA. VSS.
[2018-09-18] VITALS (22 sets, daily range): BP systolic 91–123; BP diastolic 37–87
[2018-09-18 05:11] LABS: CALCIUM 8.5 mg/dL (8.5-10.1); POTASSIUM 3.5 mmol/L (3.5-5.1)
--- NOTE | 2018-09-18 07:15 | NUR ---
ASSUMED CARE OF PT AT 1900 ON 09/17. FROM THE START OF THE SHIFT, PT VERY ANXIOUS, IMPULSIVE, AND DISORIENTED. PT GIVEN ATIVAN PRN PER CIWA PROTOCOL. CIWA SCORE RANGED FROM 7 TO 20. PT BECAME MORE ORIENTED THROUGHOUT THE NIGHT, BUT STILL HAD SOME CONFUSION. ASSESSMENTS AND VITALS DOCUMENTED. WILL CONTINUE TO MONITOR.
--- NOTE | 2018-09-18 19:45 | NUR ---
PATIENT ALERT AND ORIENTED TO SELF, CONFUSED AT TIMES, A-FIB ON UNDERCUTTER. ON 4L NASAL CANNULA, SHORTNESS OF BREATH WITH INCREASED ACTIVITY. TOLERATING DIET, QUEVEDO PATENT AND DRAINING. UP WITH X1 ASSISTANCE. PATIENT AND FAMILY UPDATED ON THE PLAN OF CARE. NO SIGNS OF ACUTE DISTRESS NOTED AT THIS TIME. WILL CONTINUE TO MONITOR.
[2018-09-19] VITALS (10 sets, daily range): BP systolic 88–111; BP diastolic 57–78
--- NOTE | 2018-09-19 05:07 | NUR ---
CLIENT REMAINS IN THE ICU. CARE ASSUMED 09/18/18 @ 2100. MICAH HAS CRITICAL CARE TELE TRANSFER ORDERS BUT AWAITING AVAILABILITY ON TRANSFER UNIT. A/O X2 AND HAS PERIODS OF CONFUSION WELL RESTLESSNESS. A-FIB PER MONITOR, 4L/NC WHILE INPATIENT WELL AT HOME PER NURSING SHIFT REPORT. 2GM Na 40GM PROTEIN SOFT DIET W/FIBER RESTRICT. CLIENT'S LAST BM WAS 09/18/18 DURING THE DAY SHIFT NURSING TOUR. SKIN IS INTACT WITH VARIOUS BRUISING THROUGOUT AND SLIGHT DRYNESS. CLIENT HAS LEFT UPPER SHOULDER PIV- SL AND LEFT FA PIV-SL. A-FIBRILE DURING THE NIGHT AND THEY RECEIVED TRAZADONE FOR INSOMNIA PRN WELL PRN TYLENOL. PLEASE SEE [facility] FOR ADDITIONAL QUESTIONS/CONCERNS.
[2018-09-19 08:26] LABS: POTASSIUM 4.2 mmol/L (3.5-5.1)
--- NOTE | 2018-09-19 11:57 | NUR ---
Patient assessments and vital signs as documented. She ambulated around nurses station and has been up and down from room ambulation to chair, then back to bed. Reassurance provided. She has been tearful and crying intermittently today, appears overwhelmed with life situations, per her report. on 4Liters nasal cannula her o2 sat was >92%. When she is worked up she becomes tachypnic, then when she calms down she breathes more appropriately. Report given to next shift RN for continuation of care and she was transferred to POD 1.
--- NOTE | 2018-09-19 13:53 | NUR ---
PT IS ALERT TO SELF. AND YEAR CONFUSED ON PLACE AND SITUATION. FORGETFULL AND IMPULSIVE AT TIMES. LUNGS ARE CLEAR. AFIB ON THE MONITOR. QUEVEDO TO DD WITH MARISABEL URINE. EATING A REGULAR DIET. SKIN INTACT. PT IS SLEEPING NO COMPLAINTS NOTED. VS STABLE. ON 4 LITERS NASAL CANULA ON 02 SATURATION IS 92 PERCENT. WILL CONTINUE TO MONITOR AND ASSESS PER NURSING
[2018-09-20] VITALS (7 sets, daily range): BP systolic 33–139; BP diastolic 16–103
--- NOTE | 2018-09-20 03:55 | NUR ---
pt c/o nausea and rivera prn meds given, frequent repositioning, pt c/o soa and audibly wheezing on 4l/nc sating 92%, RT tx given and pt resting comfortably, gracia with clear yellow drainage, hr remains afib, no further c/o will cont to monitor per ppoc.
[2018-09-20 05:25] LABS: HEMATOCRIT 37.7 % (37.0-47.0); HEMOGLOBIN 11.7 gm/dL (12.0-15.0); MCH 28.7 pg (26.0-34.0); MCHC 31.1 g/dL (28.0-37.0); MCV 92.3 fL (80.0-100.0); RBC 4.08 mil/uL (4.20-5.00); WBC 6.6 thou/uL (4.0-11.0)
[2018-09-20 05:34] LABS: CREATININE 1.8 mg/dL (0.6-1.0); POTASSIUM 4.3 mmol/L (3.5-5.1)
--- NOTE | 2018-09-20 11:21 | NUR ---
NOTE THIS RN IS ORIENTATING CHRISTINA MARTINEZ. I AGREE WITH ALL CHARTING.
--- NOTE | 2018-09-20 11:32 | EKG ---
[address] [place] [address] ELECTROCARDIOGRAM REPORT Name: FENG SANABRIA Room #: 239-P ADM IN M.R.#: [id number] ������������������ Admission: 09/16/18 ������������������ Attend Phys: Jaime Beck MD Discharge: ������������������ Date of : 62 Report #: [id number] ����������������������������������������������������������������� [id number] THIS REPORT FOR: //name// [facility] Test Date: 2018-09-19 Test Time: 19:26:54 Pat Name: FENG SANABRIA Department: Room: 239 P Gender: F Mixer Helper: Marta MARK : 1960 Requested By: Von Escobar Order Number: [id number] MD: Alexander Prescott Measurements Intervals [place] Rate: 87 P: NE: QRS: 140 QRSD: 83 T: 151 QT: 528 QTc: 636 Interpretive Statements Atrial fibrillation Ventricular premature complex versus Yunior beats Right axis deviation Low voltage, precordial leads Nonspecific ST-T wave changes Compared to ECG 09/16/2018 03:08:07 Rate improved Electronically Signed On 09-20-2018 11:31:54 WORK AND FAMILY LIFE CONSULTANT by Alexander Prescott [email or web address] ��������������������������������������������� <ELECTRONICALLY SIGNED> ���������������������������������������� By: Alexander Prescott MD ��������������������������������������������� 09/20/18 1131 25 25 Alexander Prescott MD /EPI
--- NOTE | 2018-09-20 16:52 | NUR ---
FOLLOWING FOR DCPLANINNG. CLINCIAL INFO REVIEWED ND MET WITH PT. PER HOSPITALIST, LIKELY DC THIS W/E. PT LIVES WITH Ceasar CROWE WHO WILL TRANSPORT HOME. PT HAS HOME O2 IN PLACE AND WALKER WAS ISSUED TO PT LAST DC. WALKING 200 FT WITH P.T. TODAY. MEDICAID STEVEN PENDING APPROVAL. NO FURHTER NEEDS.
--- NOTE | 2018-09-20 17:54 | NUR ---
ASSUMED CARE OF PT AT 0700, MAIN COMPLAINT OF QUEVEDO PAIN. A&O X4, SOMETIMES IS FORGETFUL, CALM AND COOPERATIVE THROUGHOUT DAY. CIWA SCORE 1-3. PT REMAINS HEMODYNAMICALLY STABLE AND ON 4L O2 VIA NC. DC'D QUEVEDO AT 1245, PT TOLERATED PROCEDURE WITH NO COMPLICATIONS. PT. IS UP WITH ASSIST TO BEDSIDE COMMODE. PT. REMAINS STABLE AND WILL CONTINUE TO MONITOR.
--- NOTE | 2018-09-20 18:48 | NUR ---
PT. TRANSFERRED TO CCU. ALL BELONGINGS WITH PATIENT. TELEPHONE REPORT GIVEN TO NOMAN MARTINEZ AT 1820.
[2018-09-21] VITALS (9 sets, daily range): BP systolic 100–124; BP diastolic 71–108
[2018-09-21 04:41] LABS: MCH 28.4 pg (26.0-34.0); MCHC 31.3 g/dL (28.0-37.0); MCV 90.6 fL (80.0-100.0); RBC 3.86 mil/uL (4.20-5.00); RDW 20.1 % (10.5-14.5); WBC 5.6 thou/uL (4.0-11.0)
[2018-09-21 04:47] LABS: INR 1.3; PROTIME 13.8 Seconds (9.3-11.4)
[2018-09-21 05:05] LABS: DIRECT BILIRUBIN 0.4 mg/dL (<0.1-0.3); TOTAL BILIRUBIN 0.9 mg/dL (<0.1-1.0); TOTAL PROTEIN 7.2 g/dL (6.4-8.2)
--- NOTE | 2018-09-21 07:43 | NUR ---
ASSESSMENTS CHARTED. SPONTANEOUS AND NON-COMPLIANT WITH FALL PRECAUTIONS. CLIMBS OVER RAILS AND TURNS OFF THE BED ALARM. PATIENT TOOK SHOWER THIS MORNING AND WORE HERSELF OUT. SHE BELIEVES SHE IS GOING HOME TODAY, BUT NOTHING IN THE DOCTOR'S NOTES REFLECT THIS.
--- NOTE | 2018-09-21 09:27 | NUR ---
APROX 0845, PATIENT CLIMBED OVER BED RAILS AND WENT TO THE RESTROOM. WHILE IN THE RESTROOM, SHE PULLED THE CALL LIGHT IN THE BATHROOM. WHEN THE BOARD HANDLER ARRIVED TO THE BATHROOM, PATIENT WAS ON THE FLOOR, CONFUSED, NOT COMPLAINING OF ANY PAIN. NOMAN RN AND DENYS RN ASSISTED PATIENT TO WHEECHAIR AND THEN BACK TO BED. NO VISIBLE INJURIES. DENYS RN HAD LAST ROUNDED ON PATIENT AT 0800, AND PATIENT WAS REMINDED TO CALL FOR HELP, AND SHE VERBALIZED UNDERSTANDING. YELLOW SOCKS, WRIST BAND, BED ALARM, AND GAIT BELT IN ROOM. NIGHT NURSE DID NOT AND REPORT THAT PATIENT WAS NON COMPLIANT OVERNIGHT, CLIMBING BED RAILS, AND TURNING OFF BED ALARM. AWAITING CALL BACK FROM DR AGUIRRE WITH ORDERS.
--- NOTE | 2018-09-21 17:00 | NUR ---
VSS-AFEBRILE. LUNGS DIMINSHED IN ALL [place] BILATERALLY. REMAINS ON 4LNC. MORE ALERT AND ORIENTED, COMPLIANT, AND ABLE TO FOLLOW DIRECTION. SITTER REMAINS AT BEDSIDE. OOB WITH ASSIST X 1 TO USE BSC. NO REPORTED N/V. NO REPORTS OF PAIN.
--- NOTE | 2018-09-22 02:51 | NUR ---
ASSESSMENT: PT REMAIN ALERT AND ORIENT TIMES THREE. NO BOUTS OF CONFUSION THUS FAR THIS SHIFT. SITTER STILL AT THE BEDSIDE FOR THIS SHIFT AND WILL BE DC'D IN THE AM. PT IS UP TO THE BR WITH SBA. NO FALLS THIS SHIFT. STEADY AND SLOW GAIT. VSS, AFEBRILE. REMAIN ON FALL PRECAUTIONS. AFIB PER MONITOR. PT FEELS THAT THE LACTULOSE IS WHAT CAUSED HER CONFUSION EARLIER DURING THE DAY. SLOW PROGRESS TOWARDS DC GOALS. WILL CONTINUE TO MONITOR.
[2018-09-22 04:05] VITALS: BP 121/83
[2018-09-22 07:28] VITALS: BP 125/87
[2018-09-22 08:00] VITALS: BP 125/87
[2018-09-22 08:08] LABS: HEMATOCRIT 33.1 % (37.0-47.0); HEMOGLOBIN 10.6 gm/dL (12.0-15.0); MCH 28.9 pg (26.0-34.0); MCHC 32.1 g/dL (28.0-37.0); MCV 90.1 fL (80.0-100.0); RBC 3.67 mil/uL (4.20-5.00); RDW 21.4 % (10.5-14.5); WBC 6.5 thou/uL (4.0-11.0)
[2018-09-22 08:13] LABS: CALCIUM 9.5 mg/dL (8.5-10.1); CREATININE 1.7 mg/dL (0.6-1.0); POTASSIUM 3.3 mmol/L (3.5-5.1)
[2018-09-22 11:10] VITALS: BP 118/85
[2018-09-22 15:10] VITALS: BP 93/73
[2018-09-22 19:25] VITALS: BP 126/86
--- NOTE | 2018-09-22 21:32 | NUR ---
PATIENT ALERT AND ORIENTED AND SPENT MUCH OF THE DAY IN CHAIR, TALKING ON PHONE AND VISITING WITH FRIENDS. PATIENT WOULD LIKE CT SCAN DESPITE RISKS OF HIGH CREATINE TO DETERMINE ANY PROBLEMS. PATIENT CALLS IN SHE NEEDS TO GO TO BATHROOM AND IS STAND BY ASSIST.
--- NOTE | 2018-09-23 01:40 | NUR ---
ASSESSMENTS CHARTED. PT TEARFUL AT TIMES. PT STILL HAVING SOME CONFUSSION AND MEMORY GAPS. FORGETS TO CALL OUT BEFORE GETTING UP, TURNS THE BED ALARM OFF HERSELF. PATIENT PLANNING ON BEING DISCHARGED THIS MORNING.
[2018-09-23 04:04] LABS: CALCIUM 9.1 mg/dL (8.5-10.1); CREATININE 1.7 mg/dL (0.6-1.0); POTASSIUM 3.5 mmol/L (3.5-5.1)
[2018-09-23 04:22] LABS: HEMATOCRIT 32.9 % (37.0-47.0); HEMOGLOBIN 10.5 gm/dL (12.0-15.0); MCH 28.7 pg (26.0-34.0); MCHC 31.8 g/dL (28.0-37.0); MCV 90.2 fL (80.0-100.0); RBC 3.64 mil/uL (4.20-5.00); RDW 20.7 % (10.5-14.5); WBC 5.3 thou/uL (4.0-11.0)
[2018-09-23 04:35] VITALS: BP 116/80
[2018-09-23 07:05] VITALS: BP 98/67
[2018-09-23 12:25] VITALS: BP 122/78
--- NOTE | 2018-09-23 14:45 | NUR ---
met with patient who reports possible dc home today. She is worried regarding her prescriptions. Offered to assist with vouching depending on medication. She has home oxygen and walker at home. [facility] agreeable to 2 RN cindi visits. she reports her disability to begin any time but casemt unsure if would begin so soon since recently applied. She reports her prev will not sign divorce paperwork so she is unable to rec her correction. Planning home with cindi and her boyfriend to assist at home. She has a sister who has her own health issues and no other family to assist.
--- NOTE | 2018-09-23 15:19 | NUR ---
PT. IS MEDICAID PENDING AND IS IN NEED OF A COUPLE OF NURSING VISITS AT HOME POST DISCHARGE. NOTIFIED [facility] TO SEE IF THEY CAN DO ANY [facility] VISITS. SPOKE WITH [facility] AND THEY CAN DO 2 NURSING VISITS. DCP TO FOLLOW.
[2018-09-23 15:25] VITALS: BP 108/70
[2018-09-23] MEDS ORDERED: CARDIZEM CD240 MG PO (15:25)
[2018-09-23] MEDS ORDERED: VITAMIN B-1100 M2 PO (15:25)
[2018-09-23] MEDS ORDERED: VENTOLIN HFA 1818 GM INH (15:27)
[2018-09-23 15:49] VITALS: BP 122/78
[2018-09-23 16:49] VITALS: BP 122/78
--- NOTE | 2018-09-23 17:11 | NUR ---
Patient to [place] home. [facility] for cindi visits. Vouched for medications for $107.35 in outpatient pharmacy. no further needs
== END 2018-09-23 17:39 | disposition home health service (06) | DRG 441 ==
LOC: ER 03:00 → 2N 05:47 → EROBS 05:47 → ICU 05:47 → 2N 09-20 18:43
PROVIDERS: Emergency Medicine; Nurse Practitioner; Nurse Practitioner Adult Health; ADMIT Hospitalist
DX: K72.90 Hepatic failure, unspecified without coma (principal); I50.23 Acute on chronic systolic (congestive) heart failure; J96.02 Acute respiratory failure with hypercapnia; N17.9 Acute kidney failure, unspecified; I13.0 Hypertensive heart and chronic kidney disease with heart failure and stage 1 through stage 4 chronic kidney disease, or unspecified chronic kidney disease; D68.59 Other primary thrombophilia; I42.9 Cardiomyopathy, unspecified; F05 Delirium due to known physiological condition; I48.91 Unspecified atrial fibrillation; K74.60 Unspecified cirrhosis of liver; E78.00 Pure hypercholesterolemia, unspecified; G47.33 Obstructive sleep apnea (adult) (pediatric); F10.120 Alcohol abuse with intoxication, uncomplicated; F41.9 Anxiety disorder, unspecified; K70.10 Alcoholic hepatitis without ascites; I27.20 Pulmonary hypertension, unspecified; E66.9 Obesity, unspecified; I08.3 Combined rheumatic disorders of mitral, aortic and tricuspid valves; N18.9 Chronic kidney disease, unspecified; R59.0 Localized enlarged lymph nodes; Z91.14 Patient's other noncompliance with medication regimen; Z90.49 Acquired absence of other specified parts of digestive tract; Z86.73 Personal history of transient ischemic attack (TIA), and cerebral infarction without residual deficits; Z71.41 Alcohol abuse counseling and surveillance of alcoholic; Z68.38 Body mass index [BMI] 38.0-38.9, adult; Z79.899 Other long term (current) drug therapy; Z88.8 Allergy status to other drugs, medicaments and biological substances; Z91.041 Radiographic dye allergy status; Z82.49 Family history of ischemic heart disease and other diseases of the circulatory system; Z80.8 Family history of malignant neoplasm of other organs or systems; Z83.3 Family history of diabetes mellitus
CPT/HCPCS: 10078; 10081; 10203

== ENCOUNTER 2018-09-26 15:50 | Inpatient (IN) | payer OTHER ==
[~2018-09-26] VITALS: Ht 170.2 cm; Wt 95.0 kg
[~2018-09-26 15:50] MED LIST changes: +VITAMIN B-1100 M2 PO
[2018-09-26 15:51] VITALS: BP 136/100
[2018-09-26 16:47] LABS: HEMATOCRIT 37.6 % (37.0-47.0); HEMOGLOBIN 11.8 gm/dL (12.0-15.0); MCH 28.1 pg (26.0-34.0); MCHC 31.3 g/dL (28.0-37.0); MCV 89.7 fL (80.0-100.0); PLATELET COUNT 226 thou/uL (150-400); RBC 4.19 mil/uL (4.20-5.00); RDW 20.4 % (10.5-14.5); WBC 5.7 thou/uL (4.0-11.0)
[2018-09-26 17:00] LABS: CALCIUM 9.9 mg/dL (8.5-10.1); CREATININE 1.8 mg/dL (0.6-1.0); POTASSIUM 3.1 mmol/L (3.5-5.1)
[2018-09-26 17:08] LABS: ALBUMIN 3.8 g/dL (3.4-5.0); DIRECT BILIRUBIN 0.7 mg/dL (<0.1-0.3); TOTAL BILIRUBIN 1.6 mg/dL (<0.1-1.0); TOTAL PROTEIN 8.7 g/dL (6.4-8.2)
[2018-09-26 17:10] LABS: ABSOLUTE NEUTROPHILS 3.2 thou/uL (1.4-8.2); ANISOCYTOSIS 1+
[2018-09-26 17:11] LABS: POLYCHROMASIA OCCASIONAL
[2018-09-26 18:04] LABS: URINE BILIRUBIN NEGATIVE (Negative); URINE BLOOD NEGATIVE (Negative); URINE CLARITY CLEAR; URINE COLOR YELLOW; URINE GLUCOSE-RANDOM* NEGATIVE (Negative); URINE KETONES NEGATIVE (Negative); URINE LEUKOCYTES-REFLEX NEGATIVE (Negative); URINE NITRITE-REFLEX NEGATIVE (Negative); URINE PROTEIN (DIPSTICK) NEGATIVE (Negative); URINE UROBILINOGEN 0.2 E.U./dl (0.2-1.0)
[2018-09-26 18:13] LABS: AMP/METHAMP Negative (Negative); BARBITURATES Negative (Negative); BENZODIAZEPINES Negative (Negative); COCAINE Negative (Negative); METHADONE Negative (Negative); OPIATES Negative (Negative); PCP Negative (Negative)
[2018-09-26 18:17] VITALS: BP 127/91
[2018-09-26 18:32] VITALS: BP 127/91
[2018-09-26 19:20] VITALS: BP 106/52
[2018-09-27 00:52] VITALS: BP 121/82
[2018-09-27 05:04] LABS: MCH 28.7 pg (26.0-34.0); MCHC 32.2 g/dL (28.0-37.0); MCV 89.3 fL (80.0-100.0); RBC 3.36 mil/uL (4.20-5.00); RDW 21.2 % (10.5-14.5); WBC 4.7 thou/uL (4.0-11.0)
[2018-09-27 05:09] LABS: HEMOGLOBIN 9.7 gm/dL (12.0-15.0)
--- NOTE | 2018-09-27 05:14 | NUR ---
PT NEW ADMIT OF 189909/26/18. PT AO X 3. PT ON CARDIZEM DRIP. PT WAS IMPULSIVE, UNWILLING TO ANSWER QUESTION DURING ADMISSION. DENIES PAIN.NAUSEA AND VOMITING. NOTICEABLE INTERMITTENT CONFUSION. EDEMA IN LOWER EXTREMITIES. PT ALSO HAS SWELLING IN THE LEFT ARM. PT REPORTS THIS HAS BEEN A CHRONIC SWELLING. WILL CONTINUE TO MONITOR.
[2018-09-27 05:59] VITALS: BP 101/55
--- NOTE | 2018-09-27 09:05 | EKG ---
[place] [address] [facility] [place] [address] ELECTROCARDIOGRAM REPORT Name: FENG SANABRIA Room #: 217-P ADM IN M.R.#: [id number] ������������������ Admission: 09/26/18 ������������������ Attend Phys: Brijesh Anderson MD Discharge: ������������������ Date of : 62 Report #: [id number] ����������������������������������������������������������������� [id number] THIS REPORT FOR: //name// [facility] ED Test Date: 2018-09-26 Test Time: 16:37:02 Pat Name: FENG SANABRIA Department: Room: 217 Gender: F Labor Relations Supervisor: THADDEUS : 1960 Requested By: Mike Godinez Order Number: [id number] MD: Mich Fonseca Measurements Intervals [place] Rate: 153 P: AR: QRS: 111 QRSD: 85 T: 210 QT: 315 QTc: 503 Interpretive Statements Atrial fibrillation Left posterior fascicular block Poor R wave progression Nonspecific ST and T wave abnormality Prolonged QT interval Compared to ECG 09/19/2018 19:26:54 nonspecific change in the ST and T-wave segments Electronically Signed On 09-27-2018 9:05:48 CARE COORDINATION MANAGER by Mich Fonseca [email or web address] ��������������������������������������������� <ELECTRONICALLY SIGNED> ���������������������������������������� By: Mich Fonseca MD, [facility] ��������������������������������������������� 09/27/18 0905 1637 1637 Mich Fonseca MD, [facility] /EPI
[2018-09-27 15:35] VITALS: BP 107/86
--- NOTE | 2018-09-27 15:53 | NUR ---
Pt lives with her boyfriend and is known to cm from recent admissions. Recently dc'd to home on 09/23/18 and cm vouchered her medications. She has a rwalker and home o2 inplace. Pt used her cindi hh visits per [facility]. No dc interventions indicated at this time. Pt has been educated on followup care options. Pt's boyfriend can transport her home at dc.
--- NOTE | 2018-09-27 17:25 | NUR ---
PT ALERT AND ORIENTED. VSS. AFIB ON THE MONITOR. DENIED HAVING PAIN OR DISCOMFORT. NO CARDIAC OR RESPITORY DISTRESS NOTED. WILL CONTINUE TO MONITOR.
[2018-09-27 20:15] VITALS: BP 115/74
--- NOTE | 2018-09-28 03:30 | NUR ---
PT POST CARDIAC ABLATION. CURRENTLY SR ON THE MONITOR. RIGHT GROIN C/D/I. OFF BEDREST AT 2030. QUEVEDO PULLED. PT HAS BEEN ABLE TO VOID THIS FALL. SMALL DRY BLOOD STAIN ON THE GROIN DRESSING. PERSISTENT COUGH SINCE SURGERY WITH MINIMAL FLAMES. CRACKLES AUDIBLE IN THE LEFT LUNG. PT DENIES ANY PREVIOUS RESP. PROBLEM. GUIFENASIN SYRUP FOR COUGH. VITAL SIGNS STABLE. POSSIBLE DICAHRGE TODAY. WILL CONTINUE TO MONITOR.
--- NOTE | 2018-09-28 03:48 | NUR ---
PT AO X3. INTERMITTENT CONFUSION CARDIZEM DC'D. HR MAINTAINED BELOW 100 MOST OF THE NIGHT- TACHY WITH ACTIVITIES. OTHER VITAL SIGNS STABLE. POSSIBLE DISCHARGE TODAY. WILL CONTINUE TO FOLLOW PLAN OF CARE.
[2018-09-28 04:50] VITALS: BP 95/77
[2018-09-28 08:00] VITALS: BP 117/87
[2018-09-28] MEDS ORDERED: TORSEMIDE20 MG PO (10:30)
[2018-09-28 10:58] VITALS: BP 117/87
--- NOTE | 2018-09-28 11:09 | NUR ---
PT CARE ASSUMED APPROX 0700. PT ALERT AND ORIENTED X4 WITH FORGETFULNESS AND RAPID MOOD SWINGS. VSS. UP WITH STEADY GAIT. APPETITE GOOD. PT DISCHARGED HOME TO SELF CARE. FAMILY AT BEDSIDE TO PROVIDE TRANSPORTATION HOME. DISCHARGE REVIEWED WITH PT. SHE DENIES QUESTIONS OR CONCERNS REGARDING MEDS (NO NEW) AND MED CHANGES, F/U APPTS, DIET, ACTIVITY LEVEL AND POST HOSPITAL CARES. IV WAS WHEN SHIFT STARTED. TELE REMOVED. PCT TO ESCORTED PT OUT TIMELY.
--- NOTE | 2018-09-30 08:07 | EKG ---
[place] [address] [facility] [place] [address] ELECTROCARDIOGRAM REPORT Name: FENG SANABRIA Room #: 217-P [facility] IN M.R.#: [id number] ������������������ Admission: 09/26/18 ������������������ Attend Phys: Brijesh Anderson MD Discharge: 09/28/18 ������������������ Date of : 62 Report #: [id number] ����������������������������������������������������������������� [id number] THIS REPORT FOR: //name// [facility] Test Date: 2018-09-28 Test Time: 06:42:11 Pat Name: FENG SANABRIA Department: Room: 217 Gender: F Supervisor Home Economics: : 1960 Requested By: Pamela Renteria Order Number: [id number] MD: Mich Fonseca Measurements Intervals [place] Rate: 106 P: NE: QRS: 115 QRSD: 83 T: QT: 436 QTc: 580 Interpretive Statements Atrial fibrillation Left posterior fascicular block Borderline low voltage, extremity leads Nonspecific ST and T wave abnormality Prolonged QT interval Compared to ECG 09/26/2018 16:37:02 Heart rate has slowed Electronically Signed On 09-30-2018 8:06:52 CDT by Mich Fonseca [email or web address] ��������������������������������������������� <ELECTRONICALLY SIGNED> ���������������������������������������� By: Mich Fonseca MD, [facility] ��������������������������������������������� 09/30/18 0806 0642 0642 Mich Fonseca MD, [facility] /EPI
== END 2018-09-28 11:31 | disposition home or self-care (01) | DRG 683 ==
LOC: ER 15:50 → 2N 17:57 → EROBS 17:57 → 2N 18:34
PROVIDERS: Emergency Medicine; ADMIT Hospitalist
DX: N17.9 Acute kidney failure, unspecified (principal); I50.22 Chronic systolic (congestive) heart failure; I42.9 Cardiomyopathy, unspecified; I13.0 Hypertensive heart and chronic kidney disease with heart failure and stage 1 through stage 4 chronic kidney disease, or unspecified chronic kidney disease; K70.30 Alcoholic cirrhosis of liver without ascites; I48.91 Unspecified atrial fibrillation; F10.10 Alcohol abuse, uncomplicated; N18.9 Chronic kidney disease, unspecified; I35.0 Nonrheumatic aortic (valve) stenosis; D64.9 Anemia, unspecified; E87.6 Hypokalemia; E86.0 Dehydration; Z79.899 Other long term (current) drug therapy; Z90.49 Acquired absence of other specified parts of digestive tract; Z86.73 Personal history of transient ischemic attack (TIA), and cerebral infarction without residual deficits; Z88.8 Allergy status to other drugs, medicaments and biological substances; Z91.041 Radiographic dye allergy status; Z82.49 Family history of ischemic heart disease and other diseases of the circulatory system; Z83.3 Family history of diabetes mellitus; Z83.2 Family history of diseases of the blood and blood-forming organs and certain disorders involving the immune mechanism; Z91.19 Patient's noncompliance with other medical treatment and regimen; G47.33 Obstructive sleep apnea (adult) (pediatric); E78.00 Pure hypercholesterolemia, unspecified
CPT/HCPCS: 10081; 10194

== ENCOUNTER 2018-10-07 01:22 | Inpatient (IN) | payer OTHER ==
[2018-10-07] VITALS (37 sets, daily range): BP systolic 79–138; BP diastolic 50–95
[~2018-10-07] VITALS: Ht 170.2 cm; Wt 97.3 kg
--- NOTE | ~2018-10-07 | HC ---
[facility] [place] [address] CONSULTATION Name: FENG SANABRIA Room #: 246-P ADM IN M.R.#: [id number] Admission: 10/07/18 ������������������ Attend Phys: Dayne Donato MD Discharge: ������������������ Date of : 62 Report #: [id number] THIS REPORT FOR: //name// CC: Kolby Moran REQUESTING PHYSICIAN: Dayne Donato MD HISTORY OF PRESENT ILLNESS: The patient is a 58-year-old female who presented to [facility] on 10/07/2018. She has a history of cirrhosis, end-stage liver disease. Additionally, she has a history of severe systolic congestive heart failure. She has had multiple admissions over the last year, including one in December or January when she had intubation. The patient has acquired acute hypoxic respiratory failure. She also during this admission had atrial fibrillation with rapid ventricular response and has had recurrent delirium. The patient continues to have a decline in overall functional ADLs. Her current or ex- is present for my today's interview. He has been her caregiver. Apparently, there has been much talk in the past with regards to hospice care. The patient does admit to back pain and abdominal pain at this time. The patient does admit to dyspnea. She is currently on nasal cannula, although has required BiPAP several times throughout this admission. She does have intermittent attention deficits noted. The patient's durable power of regulatory attorney, her , has been activated yesterday per report. PAST MEDICAL HISTORY: Atrial fibrillation, hypertension, congestive heart failure, acute kidney injury, end-stage liver disease, moderate aortic stenosis, acute on chronic respiratory failure, anemia, and atrial fibrillation. SURGICAL HISTORY: She has had dialysis previously gallbladder drain placement, and lap cholecystectomy, as well as tubal ligation. FAMILY HISTORY: Heart disease, cancer, and mother with skin cancer, type 2 diabetes, history of DVTs in her mother. SOCIAL HISTORY: Again, her ex or current present at bedside who gives significant reports. MEDICATIONS: Torsemide, Cardizem, thiamine, albuterol, rifaximin, atenolol, Protonix, lactulose. ALLERGIES: CONTRAST, IODINE, ADHESIVE. REVIEW OF SYSTEMS: Difficult to obtain at this time due to poor attention level, although she definitely has reports of back pain and abdominal pain. Additionally, she has reports of dyspnea. She does occasionally report [facility] [address] [place] [address] CONSULTATION Name: FENG SANABRIA Room #: 246-P [facility] IN .R.#: [id number] Admission: 10/07/18 ������������������ Attend Phys: Dayne Donato MD Discharge: ������������������ Date of : 62 Report #: [id number] difficulty with nausea. PHYSICAL EXAMINATION: VITAL SIGNS: Temperature 36.6, pulse 94, respirations 16, blood pressure 108/73, 96%, currently on 2 L nasal cannula. GENERAL: The patient is alert at times. Her attention level alters throughout my conversation. CARDIOVASCULAR: Currently regular rate and rhythm. RESPIRATORY: Lungs appear to be clear to auscultation at this current time. ABDOMEN: Soft, but diffusely tender. LABORATORY DATA: Reviewed and pertinent include his hemoglobin 11.2, creatinine 1.3, potassium 3.4. ASSESSMENT AND PLAN: 1. End-stage liver disease. Did have extensive discussion, approximately 50 minutes, of advanced care planning discussion; however, much discussion had taken place prior to my visit. Decision at my visit was made to proceed with hospice house placement. Additionally, she confirmed DNR status. This was confirmed by power of regulatory attorney today. I did make adjustment to Roxanol to make for a scale to allow for lower dosing, as she appeared to have significant sedation per her report from morphine. Additionally may consider the addition of acetaminophen, as again this would be a safer option than any nonsteroidal anti-inflammatory drugs given her history and also additionally as the patient is pursuing hospice type care. I explained what hospice was and what it would be going forward. She appeared amenable after extensive discussion. 2. Acute on chronic systolic heart failure, again contributing to overall above diagnosis. Discussed that medications could be adjusted while at hospice house, which she was amenable to. 3. Acute hypoxic respiratory failure, again contributing to above at the time of current admission. I do believe that because of this and because of her overall diagnoses and history of alcohol use, again, she is not a likely candidate for recovery; however, I did discuss that hospice could be revoked in the future, which she felt that this was no longer necessary or if she had any stabilization in her case, she could certainly return home with hospice if she had additional care at home. She is amenable to this again. Thank you very much for this consultation. Please contact me for any questions about this patient. ��������������������������������������������� ���������������������������������������� By: ��������������������������������������������� 2240 0649 Iggy Preston DO /nt
--- NOTE | ~2018-10-07 | HC ---
[facility] [place] [address] CONSULTATION Name: FENG SANABRIA Room #: 246-P ADM IN M.R.#: [id number] Admission: 10/07/18 ������������������ Attend Phys: Dayne Donato MD Discharge: ������������������ Date of : 62 Report #: [id number] THIS REPORT FOR: //name// CC: Kolby Moran HISTORY OF PRESENT ILLNESS: The patient is admitted with atrial fibrillation, RVR. I did receive a phone call from her last night. She was quite inebriated on the phone and voicing no current complaints. She is completely noncompliant and this constitutes to multiple re-admissions here in the last few months. Her ejection fraction has been in the 35% range. She is noncompliant with diet. There have been multiple episodes of recurrent AFib and heart failure. Alcohol-induced cirrhosis, chronic kidney disease. 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 She became agitated and now on a Cardizem drip with the rate controlled. She is on Precedex because of agitation. Laboratory work showed there was chronic anemia. H and H are 9 and 31. Creatinine 1.8, which is about her baseline hypokalemia. They did a chest x-ray, which is unchanged. They did a CAT scan of her head, which showed no intracranial process. There was some question of some mild pulmonary edema. MEDICATIONS: Her home medications were supposed to have been thiamine, vitamins, atenolol 50 b.i.d., lactulose, Demadex 20, metoprolol, Protonix and albuterol. She will go home on diltiazem 180, atenolol was 50 b.i.d. and Ativan. PAST MEDICAL HISTORY: As stated above with the cardiomyopathy, alcohol abuse, cirrhosis, AFib, cardiomyopathy, DJD, chronic kidney disease and mediastinal adenopathy. FAMILY HISTORY: Really not contributable here. SOCIAL HISTORY: She lives at home with the significant other. She was supposed to be evaluated by hospice for palliative care. PHYSICAL EXAMINATION: GENERAL: She is sedated. VITAL SIGNS: Pulse is in the 80s to 90s and irregular, blood pressure 104/60. HEENT: Eyes reveal no xanthelasmas. Pharynx, slightly dry mucous membranes. NECK: Preserved upstrokes. LUNGS: Clear anteriorly, diminished in the bases. Crackles are noted. CARDIAC EXAMINATION: Irregularly irregular, S1, S2, holosystolic murmur. ABDOMEN: There appears to be a palpable liver edge, although abdomen is soft. EXTREMITIES: Reveal trace of edema, with pulses diminished. NEUROLOGIC: Not able to evaluate due to the Precedex. SKIN: No significant ulcers or open wounds. [address] [address] CONSULTATION Name: FENG SANABRIA Room #: 246-P ADM IN M.R.#: [id number] Admission: 10/07/18 ������������������ Attend Phys: Dayne Donato MD Discharge: ������������������ Date of : 62 Report #: [id number] ASSESSMENT: 1. Mental status change secondary to alcoholism. 2. Atrial fibrillation with rapid ventricular response, resolved, rate controlled. 3. Cardiomyopathy. 4. Chronic kidney disease. 5. History of hypertension. 6. Degenerative joint disease. RECOMMENDATIONS AND PLAN: We will decrease the Cardizem drip and would allow her to wake up. Hopefully, can remain calm, but perhaps Ativan too early for withdrawal to the CCU and I believe hospice palliative care supposed to evaluate her. No further cardiac workup is indicated at this time. Thank you for asking me to assist in this patient. ��������������������������������������������� ���������������������������������������� By: ��������������������������������������������� [id number] Kolby Hebert MD, FACC /nt
[2018-10-07 01:50] LABS: ABSOLUTE NEUTROPHILS 4.1 thou/uL (1.4-8.2); BASOPHILS 1.7 % (0.0-2.0); EOSINOPHILS 2.7 % (0.0-3.0); HEMATOCRIT 30.9 % (37.0-47.0); HEMOGLOBIN 9.8 gm/dL (12.0-15.0); LYMPHOCYTES 22.6 % (24.0-44.0); MCH 28.5 pg (26.0-34.0); MCHC 31.8 g/dL (28.0-37.0); MCV 89.8 fL (80.0-100.0); MONOCYTES 9.7 % (1.0-8.0); PLATELET COUNT 236 thou/uL (150-400); POLYS 63.3 % (36.0-66.0); RBC 3.44 mil/uL (4.20-5.00); RDW 20.4 % (10.5-14.5); WBC 6.4 thou/uL (4.0-11.0)
--- NOTE | 2018-10-07 01:51 | NUR ---
SEE TRAUMA CHART FOR ALL ASSESSMENTS AND TREATMENTS
[2018-10-07 01:57] LABS: ANION GAP 15 mmol/L (7-16); BUN 32 mg/dL (7-18); CALCIUM 9.4 mg/dL (8.5-10.1); CHLORIDE 103 mmol/L (98-107); CO2 24 mmol/L (21-32); CREATININE 1.8 mg/dL (0.6-1.0); GLUCOSE 109 mg/dL (74-106); POTASSIUM 3.3 mmol/L (3.5-5.1); SODIUM 142 mmol/L (136-145)
[2018-10-07 02:08] LABS: ALBUMIN 3.6 g/dL (3.4-5.0); SGOT 21 U/L (15-37); SGPT 16 U/L (30-65); TOTAL BILIRUBIN 1.5 mg/dL (<0.1-1.0); TOTAL PROTEIN 8.3 g/dL (6.4-8.2); TROPONIN-I <0.06 ng/mL (<0.06)
[2018-10-07 02:25] LABS: INR 1.2; PROTIME 12.7 Seconds (9.3-11.4)
[2018-10-07 03:33] LABS: MAGNESIUM 2.1 mg/dL (1.8-2.4); PHOSPHORUS 3.7 mg/dL (2.5-4.9)
[2018-10-07 04:37] LABS: URINE BILIRUBIN NEGATIVE (Negative); URINE BLOOD NEGATIVE (Negative); URINE CLARITY CLEAR; URINE COLOR YELLOW; URINE GLUCOSE-RANDOM* NEGATIVE (Negative); URINE KETONES NEGATIVE (Negative); URINE LEUKOCYTES-REFLEX NEGATIVE (Negative); URINE NITRITE-REFLEX NEGATIVE (Negative); URINE PROTEIN (DIPSTICK) 1+ (Negative); URINE UROBILINOGEN 0.2 E.U./dl (0.2-1.0)
[2018-10-07 04:46] LABS: AMP/METHAMP Negative (Negative); BARBITURATES Negative (Negative); BENZODIAZEPINES Negative (Negative); COCAINE Negative (Negative); METHADONE Negative (Negative); OPIATES Negative (Negative); PCP Negative (Negative)
[2018-10-07 05:22] LABS: BACTERIA-REFLEX 1-9 Few /HPF (None Seen); HYALINE CASTS 4-10 Moderate /LPF (None Seen); MUCUS 4-6 Moderate strn/LPF (None Seen); SQUAMOUS 0-3 Few /LPF (0-3); URINE RBC 0-2 Rare /HPF (0-2); URINE WBC-REFLEX 0-5 Rare /HPF (0-5)
[2018-10-07 05:23] LABS: AMORPHOUS URATES Few /LPF (None Seen)
--- NOTE | 2018-10-07 10:32 | NUR ---
CM ASSESSMENT: CASE OPENED FOR DC PLANNING. CLNICAL INFO REVIEWED. PT ADMITS THRU ER AFTER FALL AT HOME AND SYNCOPAL. AFIB RVR. PT REQUIRED SEDATION FOR IMAGING AND IS CURRENTLY SLEEPING/SEDATED WITH NON REBREATHER MASK ON AND SBP 80'S. S.O. AMRITA AT BEDSIDE AND INFO FROM HIM. PT HAS MULTIPLE ADMITS TO [facility] PAST FEW MONTHS. LIVES IN HOUSE, INDEPENDENT WITH ADLS, HAS WALKER, HOME O2. NO LONGER WORKS R/T HEALTH AND WITHOUT MEDICAL INSURANCE. [employer] COMPLETED MEDICAID APPLICATION EARLIER THIS YEAR. PT WITH HX OF CMP WITH EF AROUND 30%, ALSO HX OF ETOH AND PT CONTINUES TO DRINK AND HAS BEEN OFFERRED TREATMENT RESOURCES WITH EACH ADMIT. [facility] HAS PROVIDED JOSÉ MIGUEL VISTS IN PAST AND HAVE VOUCHED FOR MEDS RECENTLY WELL.
--- NOTE | 2018-10-07 17:02 | EKG ---
[address] [place] [address] ELECTROCARDIOGRAM REPORT Name: FENG SANABRIA Room #: 246-P ADM IN M.R.#: [id number] ������������������ Admission: 10/07/18 ������������������ Attend Phys: Dayne Donato MD Discharge: ������������������ Date of : 62 Report #: [id number] ����������������������������������������������������������������� [id number] THIS REPORT FOR: //name// [facility] ED Test Date: 2018-10-07 Test Time: 01:28:02 Pat Name: FENG SANABRIA Department: Room: 246 Gender: F Casing Crew: JERRY : 1960 Requested By: Elaine Swenson Order Number: [id number] MD: Mich Fonseca Measurements Intervals [place] Rate: 144 P: [place]: QRS: 108 QRSD: 91 T: 242 QT: 318 QTc: 492 Interpretive Statements Atrial fibrillation Right axis deviation Nonspecific ST and T wave abnormality Borderline prolonged QT interval Compared to ECG 09/28/2018 06:42:11 No significant change was found Electronically Signed On 10-07-2018 17:02:06 CDT by Mich Fonseca [email or web address] ��������������������������������������������� <ELECTRONICALLY SIGNED> ���������������������������������������� By: Mich Fonseca MD, [facility] ��������������������������������������������� 10/07/18 1702 0128 7 Mich Fonseca MD, [facility] /EPI
[2018-10-07 18:43] LABS: BE(vivo) -6.3 mmol/L (-2 to +3); HCO3 17.9 mmol/L (22.0-26.0); PCO2 31.3 mmHg (35.0-45.0); PO2 110.9 mmHg (80.0-100.0); pH 7.375 (7.360-7.450)
--- NOTE | 2018-10-07 19:22 | NUR ---
ASSUMED CARE OF PT. OF AT 0730. PT. IS SEDATED AND RESTRAINED. CIWA SCORE OF 5 THROUGHOUT SHIFT. ASSESSMENTS AND VITAL SIGNS CHARTED. MEDICATION TITRATION CHARTED. HELD PT. ORAL MEDICATIONS DUE TO INCREASED LETHARGY AND DECREASED LOC. NO ATIVAN GIVEN DURING SHIFT. PT. GIVEN 500 ML NS FLUID BOLUS FOR LOW BLOOD PRESSURE PER PHYSICIAN ORDER. POC IS TO KEEP PT. HEMODYNAMICALLY STABLE AND MAINTAIN OXYGENATION. WILL CONTINUE TO MONITOR.
--- NOTE | 2018-10-07 20:42 | NUR ---
[facility] 9. OPENS EYES TO VOICE. MAKES INCOMPREHENSIBLE SOUNDS. FOLLOWS SIMPLE COMMANDS AT TIMES. CIWA 10. BUE RESTRAINTS IN PLACE. PRECEDEX GTT. PT DROWSY, BUT REMAINS ANXIOUS AND RESTLESS. AFIB. IV LOPRESSOR ADMINISTERED. CARDIZEM GTT IF UNABLE TO CONTROL RATE WITH LOPRESSOR. PT PLACED ON BIPAP THIS SHIFT. 06/27, RATE 12, 70%. TACHYPNEA. NPO TO LETHARGY AND ALTERED MENTAL STATUS. VITAL SIGNS AND ASSESSMENTS DOCUMENTED. WILL CONTINUE TO MONITOR.
[2018-10-08] VITALS (55 sets, daily range): BP systolic 81–126; BP diastolic 41–88
[2018-10-08 05:28] LABS: CALCIUM 8.2 mg/dL (8.5-10.1); CREATININE 1.6 mg/dL (0.6-1.0); MAGNESIUM 1.9 mg/dL (1.8-2.4); POTASSIUM 3.6 mmol/L (3.5-5.1)
[2018-10-08 09:17] LABS: ALBUMIN 2.6 g/dL (3.4-5.0); TOTAL BILIRUBIN 2.3 mg/dL (<0.1-1.0); TOTAL PROTEIN 5.9 g/dL (6.4-8.2)
[2018-10-08 11:35] LABS: BE(vivo) -3.1 mmol/L (-2 to +3); HCO3 21.4 mmol/L (22.0-26.0); PCO2 36.1 mmHg (35.0-45.0); sO2 97.2 % (92.0-98.0)
--- NOTE | 2018-10-08 19:38 | NUR ---
ASSUMED CARE OF PT. AT 0700. PT. IS SEDATED AND SLEEPING. ASSESSMENTS AND VITAL SIGNS CHARTED. MEDICATION TITRATION CHARTED. CIWA SCORES CHARTED. PT. BECAME MORE ORIENTED THROUGHOUT DAY AND WAS ABLE TO TAKE A FEW SIPS OF WATER PER PHYSICIAN ORDER. PT. STILL ON BIPAP FIO2 CHANGED TO 50% PER RT. PT BECAME TACHYCARDIC AND TACHYPNIC, LOPRESSOR 5 MG GIVEN PER PHYSICIAN ORDER. PT. RESPONDED TO LOPRESSOR AND CARDIZEM DRIP RESUMED. FAMILY EDUCATED ON POC. WILL CONTINUE TO MONITOR.
--- NOTE | 2018-10-08 22:08 | NUR ---
GCS 13. OPENS EYES TO VOICE, CONFUSED AT TIMES, FOLLOWS COMMANDS. PT IS CALMER AND MORE ALERT THIS EVENING. PT REMAINS ON PRECEDEX GTT. WITHOUT PRECEDEX, ANXIETY, TACHYCARDIA, AND TACHYPNEA INCREASED. CIWA 7. AFIB ON MONITOR. CARDIZEM GTT AT 10MG/HR. PT ON BIPAP. SETTINGS FOLLOWS: 12/6, RATE 12, FIO2 50%. SMALL VOLUME CLEAR SPUTUM. WEAK COUGH. PT ALERT ENOUGH FOR PO MEDS AND SIPS OF WATER. TOLERATING WELL. QUEVEDO TO DD. ADEQUATE URINE OUTPUT AT THIS TIME. VITAL SIGNS AND ASSESSMENTS DOCUEMTED. WILL CONTINUE TO MONITOR.
[2018-10-09] VITALS (51 sets, daily range): BP systolic 106–153; BP diastolic 65–117
--- NOTE | 2018-10-09 10:40 | NUR ---
PT. OFF BIPAP TO WORKWITH ST, OT, PT. UP TO CHAIR WITH MINIMAL ASSIST. HOWEVER BREATHING BECAME TACHYPNIC, LABORED, SOA, PT. MOVED BACK TO BIPAP ON PREVIOUS SETTINGS.
--- NOTE | 2018-10-09 12:10 | NUR ---
PT NOW OFF BIPAP AND 4 L NC O2. ALERT AND ORIENTED. HAD DISCUSSION ABOUT AD/DPOA AND PT COMPLETED MEDICAL DPOA NAMING AMRITA MARIE HER S.O. AGENT. ORIGINAL AND COPY PROVIDED TO AMRITA AND COPY PLACED IN CHART. ALSO DISCUSSED HOSPICE AND CODE STATUS. 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 PT DOES INDICATE SHE HAS PUT AMRITA ON HER BANK ACCOUNTS AND IS " READY" FOR HOSPICE. SOMEWHAT INCONSISTENT IN STORY SHE SAYS SHE IS READY TO STOP COMING TO THE HOSPITAL WHEN SYMPTOMATIC BUT DOESN'T WANT TO CHANGE FROM FULL CODE STATUS AT PRESENT. SHE IS AGREEABLE TO HOSPICE REFERRAL. REFERRAL FAXED. DC PLAN AT PRESENT, HOME WITH OR WITHOUT HOSPICE.
--- NOTE | 2018-10-09 17:33 | NUR ---
ASSUMED CARE OF PT. AT 0700. PT. IS LIGHTLY SEDATED, BUT CAN FOLLOW COMMANDS. ASSESSMENTS AND VITAL SIGNS CHARTED. MEDICATION TITRATIONS CHARTED. CIWA SCORES 5-8 THROUGHOUT DAY. PT. TOLERATES INCREASED PO INTAKE AND IS ON HEART HEALTHY CHOPPED DIET. PT. OFF BIPAP AND ON NC 6L O2. 1 MG ATIVAN GIVEN FOR ANXIETY AND INCREASED HALLUCINATIONS REPORTED BY PT. PT. DENIES PAIN AND IS HEMODYNAMICALLY STABLE. WILL CONTINUE TO MONITOR.
--- NOTE | 2018-10-09 20:53 | NUR ---
PT IS ANXIOUS BUT COOPERATIVE. DROWSY BUT MORE ALERT THAN PREVIOUS NIGHT. MANAGING ANXIETY WITH LORAZEPAM, MEDITATION EXERCISES, AND BY MAINTAINING A CALM, QUIET ENVIRONMENT. EXTENT OF CONFUSION FLUCTUATES. VISUAL AND AUDITORY HALLUCINATIONS AT TIMES. AFIB ON MONITOR. PT REMAINS ON BIPAP, WITH OCCASSIONAL BREAKS USING 6L PER NC. PT SOA WITH MINIMAL EXERTION. SOA, TACHYPNEA, AND TACHYCARDIA INCREASED DURING TIMES OF HEIGHTENED EMOTION. PT TOLERATING PO INTAKE. VITAL SIGNS AND ASSESSMENTS DOCUMENTED. WILL CONTINUE TO MONITOR.
[2018-10-10] VITALS (23 sets, daily range): BP systolic 96–152; BP diastolic 71–95
[2018-10-10 06:20] LABS: HEMATOCRIT 35.8 % (37.0-47.0); HEMOGLOBIN 11.2 gm/dL (12.0-15.0); MCH 27.8 pg (26.0-34.0); MCHC 31.2 g/dL (28.0-37.0); MCV 89.2 fL (80.0-100.0); RBC 4.01 mil/uL (4.20-5.00); WBC 7.9 thou/uL (4.0-11.0)
[2018-10-10 06:35] LABS: CALCIUM 8.4 mg/dL (8.5-10.1); CREATININE 1.3 mg/dL (0.6-1.0); MAGNESIUM 1.7 mg/dL (1.8-2.4); POTASSIUM 3.4 mmol/L (3.5-5.1)
--- NOTE | 2018-10-10 10:56 | NUR ---
FAXED REFERRAL TO HOSPICE HOUSE. FABRICIO FROM HOSPICE IS HER AND REFERRAL HANDES TO HER. DCP TO FOLLOW.
--- NOTE | 2018-10-10 11:56 | NUR ---
FOLLOWING FOR DC PLANNING. CLINICAL INFO REVIEWED. DISCUSSED WITH DR. AGUIRRE. HE INDICATES PT AGREEABLE TO HOSPICE AND DNR. MET WITH PT AND SHE IS AGREEABLE TO HOSPICE EVAL. SHE STATES SHE WANTS TO GO HOME. REFERRAL TO HOSPICE AND RN FABRICIO HERE TO EVAL. SHE STATES PT WANTS TO GO HOME AND ALSO PT DOES NOT WANT TO TAKE MORPHINE. PT IS VISIBLY AIR HUNGRY AND HAS BEEN TAKING IV ATIVAN BUT WITHOUT IV AT PRESENT. BRAINER RECOMMENDATION OF FOR HOSPICE HOUSE TO MANAGE SYMPTOMS, THEN TRANSITION TO HOME IF APPROPRIATE. DR. SWIFT WAS CONSULTED AND PER MICHELLE GAMEZ, WILL SEE PT LATER TODAY. OUTSIDE HOSPITAL DNR FORM COMPLETED AND IN CHART. WILL AWAIT DR. JAMISON VELASCO AND RECOMMENDATIONS.
--- NOTE | 2018-10-10 17:12 | NUR ---
PT HAS BEEN QUITE A RESTLESS AND IN A CRYING MOOD MOST OF THE DAY. FRIENDS VISISTED AND DURING THAT PERIODS SHE WAS CALM AND VSS. ONCE FRIENDS LEFT, SHE BECAME TEARFUL AGAIN. LAMENTS ABOUT HER LIFE. STATES " I AM GOING TO AND THERE IS NO ONE TO TALK TO". SHE IS NOT EASILY REDIRECTED. DR SWIFT HERE THIS PM AND TALK TO PATIENT. SHE DID ACCEPT TO GO TO THE HOSPICE HOUSE TOMORROW IF THEY HAVE ROOM. ROXINOL ADMINISTERED ONCE FOR PAIN AND ALSO FOR LABORED RESPIRATIONS. IT WAS EFFECTIVE SHE RESTED FOR A COUPLE OF HOURS. WILL CONT [facility] PLAN OF CARE.
[2018-10-11] VITALS (10 sets, daily range): BP systolic 111–144; BP diastolic 67–94
--- NOTE | 2018-10-11 03:31 | NUR ---
PT ON HOSPICE CARE. PT KEPT COMFORTABLE AND PAIN ASSESSED FREQUENTLY. PT GIVEN ROXANOL ONCE SO FAR THIS SHIFT AND HAS BEEN RESTING COMFORTABLY. WILL CONTINUE TO MONITOR AND KEEP COMFORTABLE.
--- NOTE | 2018-10-11 10:41 | NUR ---
REPORT CALLED TO [facility] FOR REPORT. AWITING TRANSPORTATION FOR [facility]ER [facility]. SPOUSE AT [facility] FOR SUPPORT. ALL BELONGING WITH PT AT THIS TIME. NO FURTHER QUESTIONS AWAITING TRANSPORTATION.
--- NOTE | 2018-10-11 13:53 | NUR ---
dr. pozo met with pt and s.o./kan jewell yesterday. met with pt and fanta this am. pt is agreeable to transition to hospice rustam and rosa from hospice here and confirms able to accept after 1200 today. rn given # for report. [facility] time 1200.
== END 2018-10-11 12:48 | disposition hospice, inpatient (51) | DRG 682 ==
LOC: ER 01:22 → EROBS 02:33 → ICU 07:06
PROVIDERS: Nurse Practitioner Family; Student in an Organized Health Care Education/Training Program; ADMIT Internal Medicine
PROC: 5A09357 Assistance with Respiratory Ventilation, Less than 24 Consecutive Hours, Continuous Positive Airway Pressure (ICD-10-PCS; principal; 2018-10-07)
PROC: 5A09357 Assistance with Respiratory Ventilation, Less than 24 Consecutive Hours, Continuous Positive Airway Pressure (ICD-10-PCS; 2018-10-08)
PROC: 5A09357 Assistance with Respiratory Ventilation, Less than 24 Consecutive Hours, Continuous Positive Airway Pressure (ICD-10-PCS; 2018-10-09)
PROC: 5A09357 Assistance with Respiratory Ventilation, Less than 24 Consecutive Hours, Continuous Positive Airway Pressure (ICD-10-PCS; 2018-10-10)
DX: N17.9 Acute kidney failure, unspecified (principal); G92 Toxic encephalopathy; J96.21 Acute and chronic respiratory failure with hypoxia; I50.43 Acute on chronic combined systolic (congestive) and diastolic (congestive) heart failure; I13.0 Hypertensive heart and chronic kidney disease with heart failure and stage 1 through stage 4 chronic kidney disease, or unspecified chronic kidney disease; I69.354 Hemiplegia and hemiparesis following cerebral infarction affecting left non-dominant side; F10.239 Alcohol dependence with withdrawal, unspecified; D68.59 Other primary thrombophilia; I42.9 Cardiomyopathy, unspecified; I48.2 Chronic atrial fibrillation; K74.60 Unspecified cirrhosis of liver; M19.90 Unspecified osteoarthritis, unspecified site; Z66 Do not resuscitate; E66.01 Morbid (severe) obesity due to excess calories; Z51.5 Encounter for palliative care; I08.3 Combined rheumatic disorders of mitral, aortic and tricuspid valves; R59.0 Localized enlarged lymph nodes; E87.6 Hypokalemia; E78.5 Hyperlipidemia, unspecified; D64.9 Anemia, unspecified; Y90.9 Presence of alcohol in blood, level not specified; N18.9 Chronic kidney disease, unspecified; E07.9 Disorder of thyroid, unspecified; I11.0 Hypertensive heart disease with heart failure; I50.9 Heart failure, unspecified; Z90.49 Acquired absence of other specified parts of digestive tract; Z98.51 Tubal ligation status; Z91.041 Radiographic dye allergy status; Z88.8 Allergy status to other drugs, medicaments and biological substances; Z91.048 Other nonmedicinal substance allergy status; Z82.49 Family history of ischemic heart disease and other diseases of the circulatory system; Z83.3 Family history of diabetes mellitus; Z80.8 Family history of malignant neoplasm of other organs or systems; Z91.19 Patient's noncompliance with other medical treatment and regimen
CPT/HCPCS: 10078